=== PATIENT | female | born 1945 | race Caucasian/White ===

== ENCOUNTER 2018-11-15 21:20 | Inpatient (IN) | payer MEDICARE ==
[~2018-11-15] VITALS: Ht 160 cm; Wt 93.2 kg
--- OUTSIDE RECORDS SUMMARY | ~2018-11-15 | XMS | Encounter Summary ---
Demographics + + + | Address | [address] | | | [place] [address] | + + + | Home Phone | | + + + | Preferred Language | Unknown | + + + | Marital Status | | + + + | Orthodox Affiliation | 1027 | + + + | Race | Unknown | + + + | Ethnic Group | Unknown | + + + Author + + + | Author | [facility] [employer] | + + + | Organization | [facility] [facility] | + + + | Address | Unknown | + + + | Phone | Unavailable | + + + Support + + + + + | Name | Relationship | Address | Phone | + + + + + | Lbiby Soriano | ECON | [address] | | | | | [place], [place] | | | | | [address] | | + + + + + Care Team Providers + +------+ + | [facility] Name | Role | Phone | + +------+ + | Rajiv Wise MD | PCP | | + +------+ + Reason for Visit +--------+ + | Reason | Comments | +--------+ + | [facility] | [facility] Report and PFT 08/08/2018 | +--------+ + Encounter Details +--------+ + + + + | Date | Type | Department | Care Team | Description | +--------+ + + + + | 10/13/ | Documentati | [facility] | Pe[place], Cheryl Castillo, MA | Other ([place] | | 2019 | on Only | [facility] [place] | | Sleep Report and PFT | | | | [address] [facility] [address] | | 08/08/2018) | | | | [address] | | | | | | [place] [address] | | | | | | [phone] | | | +--------+ + + + + Social History + +-------+ +--------+------+ [...] on file | | + + + as of this encounter Plan of Treatment +--------+ + + + + | Date | Type | Specialty | Care Team | Description | +--------+ + + + + | 11/23/ | Office | Cardiology | Barbara Wolf | | | 2019 | Visit | | [address] | | | | | | [address] | | | | | | [place] [address] | | | | | | [phone] | | | | | | | | +--------+ + + + + | 11/30/ | Initial | Nephrology | Pavel Veras MD | | | 2019 | consult | | [address] | | | | | | [address] [place] | | | | | | [phone] | | | | | | | | +--------+ + + + + | 01/11/ | Office | Cardiology | Sher Max, | | | 2019 | Visit | | [address] | | | | | | [place], | | | | | | [place] [address] | | | | | | [phone] | | | | | | | | +--------+ + + + + as of this encounter Visit Diagnoses Not on filein this encounter"
--- OUTSIDE RECORDS SUMMARY | ~2018-11-15 | XMS | Encounter Summary ---
Demographics + + + | Address | [address] | | | [place] [address] | + + + | Home Phone | | + + + | Preferred Language | Unknown | + + + | Marital Status | | + + + | Protestant Affiliation | 1027 | + + + | Race | Unknown | + + + | Ethnic Group | Unknown | + + + Author + + + | Author | [facility] | + + + | Organization | [facility] | + + + | Address | Unknown | + + + | Phone | Unavailable | + + + Support + + + + + | Name | Relationship | Address | Phone | + + + + + | Libby Soriano | ECON | [address] | | | | | [place], [place] | | | | | [address] | | + + + + + Care Team Providers + +------+ + | Care Human Resources Office Assistant Name | Role | Phone | + +------+ + | Rajiv Khan MD | PCP | | + +------+ + Reason for Referral Consultation (Routine) + + + + + + + | Status | Reason | Specialty | Diagnoses / | Referred By | Referred To | | | | | Procedures | Contact | Contact | + + + + + + + | Authorized | Specialty | Nephrology | Diagnoses | Maryann, | Pavel Veras | | | Services | | Essential | Sydney Michael MD [address] | | | Required | | hypertension | [address] | [address] | | | | | Type [address] | [address] | [address] | | | | | diabetes | [address] | [place], [place] | | | | | mellitus | [place], [place] | [address] Phone: | | | | | with stage 3 | [address] | [phone] | | | | | chronic | Phone: | Fax: | | | | | kidney | [phone] | [phone] | | | | | disease, | Fax: | | | | | | without | [phone] | | | | | | long-term | | | | | | | current use | | | | | | | of insulin | | | | | | | (HCC) Stage | | | | | | | 3 chronic | | | | | | | kidney | | | | | | | disease | | | | | | | (HCC) | | | + + + + + + + Reason for Visit + + + | Reason | Comments | + + + | Follow-up | 4 month | + + + Encounter Details +--------+---------+ + + + | Date | Type | Department | Care Team | Description | +--------+---------+ + + + | 10/08/ | Office | [facility] | Barbara Wolf | S/p TAVR | | 2019 | Visit | Cardiology [facility] | [address] | (transcatheter | | | | [address] | [address] F | aortic valve | | | | [address] | [place] [address] | replacement), | | | | [place] [address] | [phone] | bioprosthetic | | | | [phone] | | (Primary Dx); Aortic | | | | | | stenosis, severe; | | | | | | Paroxysmal atrial | | | | | | fibrillation (HCC); | | | | | | New onset left | | | | | | bundle branch block | | | | | | (LBBB); Moderate to | | | | | | severe pulmonary | | | | | | hypertension (HCC); | | | | | | Mild mitral | | | | | | stenosis; Essential | | | | | | hypertension; Type 2 | | | | | | diabetes mellitus | | | | | | with stage 3 chronic | | | | | | kidney disease, | | | | | | without long-term | | | | | | current use of | | | | | | insulin (HCC); Stage | | | | | | 3 chronic kidney | | | | | | disease (HCC) | +--------+---------+ + + + Social History + +-------+ [...] + + + as of this encounter Last Filed Vital Signs + + + + | Vital Sign | Reading | Time Taken | + + + + | Blood Pressure | 122/70 | 10/08/2018 10:15 AM PDT | + + + + | Pulse | 95 | 10/08/2018 10:15 AM PDT | + + + + | Temperature | - | - | + + + + | Respiratory Rate | - | - | + + + + | Oxygen Saturation | 100% | 10/08/2018 10:15 AM PDT | + + + + | Inhaled Oxygen | - | - | | Concentration | | | + + + + | Weight | 93 kg (205 lb) | 10/08/2018 10:15 AM PDT | + + + + | Height | 157.5 cm (5' 2") | 10/08/2018 10:15 AM PDT | + + + + | Body Mass Index | 37.49 | 10/08/2018 10:15 AM PDT | + + + + in this encounter Instructions Patient Instructions - Barbara WolfDANTE - 10/08/2018 10:00 AM PDTI am going to de crease eliquis to 2.5 mg twice daily for decreased kidney function I will refer you to Dr. Veras to follow up on your decline in kidney function I have decreased your torsemide to 10 mg twice a day and also will have you take potassium 10 Meq every other day I have ordered you fasting labs to be done at [facility] in 2 weeks I have ordered your Cardizem 120 mg to take once a day in this encounter Progress Notes Maryann Barbara QuirozDANTE - 10/08/2018 10:00 AM PDTFormatting of this note may be differen t from the original. Date of visit: 10/08/2018 Primary Care Physician: WILFRED KHAN CHIEF COMPLAINT: Chief Complaint Patient presents with Follow-up 4 month HISTORY OF PRESENT ILLNESS: Ms.Emilee Soriano is a 73 year old woman who is here today for 4 months follow-up. 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 Today, I reviewed all previous documentation available to me in electronic medical [address] and from external sources She has a history of aortic stenosis with placement of TAVR at [facility] in [place] 04/06/2018, and still followed by [facility], paroxysmal atrial fibrillation, hypertension, severe pulmonary arterial hypertension, mild mitral Stenosis , new onset left bundle branch block, moderate COPD, type II Diabetes and CKD stage III. When last seen by Dr. Max, he noted her most recent echo still showed severe pulmonary hy pertension, she was on fluid and sodium restrictions. She denied dyspnea and edema, and he made no medication changes, and did not restart her beta herman due to new LBBB after TAVR . Her current and previous testing and procedures are detailed below . She reports today that she has noticed for palpitations, and increased heart rates, and h er PCP had also noticed that her heart rate had been more elevated. She noted with exertion that her heart rate be as high as the 130, and this has made her feel more tired and short of breath. She denies any dizziness or syncope, and also denies any signs or symptoms of stroke or transient ischemic attack. She reports she has remained euvolemic, and compliant with sodiu m and fluid restriction, but she and her PCP has concerns about her decline in renal functio n. She reports that she has now established care with sleep specialist, Dr. Quintero in [facility], and is now wearing her CPAP consistently for the past month, and finds it much easier a nd more comfortable to use, and is committed to using it on a nightly basis reports she was tested and no longer requires oxygen with her CPAP Brought occasions to the clinic today, but I reviewed her medication list with her person zane. She reports she sometimes forgets to take a second dose of medications in the evening REVIEW OF SYSTEMS: Negative except for pertinent items noted in HPI. Constitutional: Morbid obesity, and lost 34 pounds in April. Denies fatigue or unexplain ed weight loss. Appetite is good. Denies night sweats fevers or chills HENT: Mild hearing loss Denies nosebleeds. Denies hearing problems. Denies dysphagia Eyes: Early cataracts Denies visual disturbance or double vision. Respiratory/Sleep:: Mild to moderate COPD SINGH.Denies cough Denies hemoptysis or excessive sputum production. Obstructive sleep apnea, on CPAP no longer requires oxygen. Denies orth opnea PND, history of moderate COPD Cardiovascular:reports fast heart rates and palpitations Denies chest pain and leg swellin g. Denies history of rheumatic fever. Denies claudication . Gastrointestinal: Denies history of gastroesophageal reflux disease . Denies nausea, vomi ting, abdominal pain and blood in stool. Genitourinary: Age 2 chronic kidney disease, recent decline in GFR with creatinine consiste ntly >2 Denies hematuria. Musculoskeletal: Occasional low back pain and stool on, denies myalgias and arthralgias Skin: Denies color change. Denies rash or lesions Neurological: Denies history of stroke/Transient ischemic attack.Denies history of seizures . Denies dizziness, syncope and numbness. Hematological/Oncology . Bruises easily. Denies bleeding. Hx anemia and previous blood tra nsfusions. Denies history of cancer Endocrine: Type II diabetes well controlled oral agents. Denies thyroid disease. Denies e xcessive thirst or hunger. Psychiatric/Behavioral: denies any history of depression or anxiety or other psychiatric il lness. Vaccines: Not Current on flu vaccine. Not Current on pneumonia vaccine. Habits/Social : Denies history of smoking, exposed to 2nd Hand smoke Denies EtOH use. Dri nks servings 2 diet pepsi daily. . Denies recreational or illicit drug use. Exercises w ith and tolerates. Lives in [place]. 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 Outpatient Medications Prior to Visit Medication Sig Dispense Refill ascorbic acid (VITAMIN C) 500 MG tablet Take 500 mg by mouth daily. aspirin 81 MG tablet Take 81 mg by mouth daily. Cholecalciferol 1000 units capsule Take 1,000 Units by mouth daily. cyanocobalamin (VITAMIN B-12) 500 MCG tablet Take 500 mcg by mouth daily. ferrous sulfate, 65 FE, 324 (65 Fe) MG EC tablet Take 65 mg of iron by mouth 2 (two) ti mes daily with meals. losartan (COZAAR) 100 MG tablet Take 100 mg by mouth daily. metFORMIN (GLUCOPHAGE) 500 MG tablet Take 500 mg by mouth 2 (two) times daily. ranitidine (ZANTAC) 300 MG tablet Take 300 mg by mouth nightly. ELIQUIS 5 MG tablet TAKE ONE TABLET BY MOUTH TWICE DAILY 180 tablet 3 potassium chloride SA (K-DUR,KLOR-CON) 20 MEQ tablet Take 1 tablet by mouth daily. 90 t ablet 3 torsemide (DEMADEX) 20 MG tablet Take 1 tablet by mouth 2 (two) times daily. 180 tablet 3 diphenhydrAMINE (BENADRYL) 25 mg capsule Take 25 mg by mouth every 6 (six) hours as nee ded for Itching. loratadine (CLARITIN) 10 MG tablet Take 10 mg by mouth daily. potassium chloride 0.4 MEQ/ML Inject 20 mEq into the vein once. No facility-administered medications prior to visit. PHYSICAL EXAM: Wt Readings from Last 3 Encounters: 10/08/18 93 kg (205 lb) 04/21/18 93.5 kg (206 lb 1.6 oz) 04/16/18 103 kg (227 lb) Temp Readings from Last 3 Encounters: 10/16/17 97.3 F (36.3 C) (Temporal) 09/30/17 97.8 F (36.6 C) BP Readings from Last 3 Encounters: 10/08/18 122/70 04/21/18 124/64 10/27/17 142/72 Pulse Readings from Last 3 Encounters: 10/08/18 95 04/21/18 85 10/27/17 70 GENERAL: Well developed, well nourished, in no distress. Appears approximately stated age . HEENT: Normocephalic, atraumatic. EYES: PERRL, EOM normal. MOUTH: Oral mucosae moist, dentition adequate, no lesions noted NECK: No JVD, lymphadenopathy, thyromegaly, bruits. Carotid pulses are 2+ bilaterally LUNGS/CHEST: Clear bilaterally, with no rales, rhonchi or wheezing noted, respirations unl abored HEART: Nondisplaced PMI, irregularly irregular rhythm with fast variable rate S1, S2 norm al. No murmurs, rubs or gallops noted. ABDOMEN: Soft, nontender, no organomegaly, masses or bruits. Bowel sounds are normal in a ll 4 quadrants. The abdominal aortic pulsation is not palpable. EXTREMITIES: No edema. Radial pulses 2+ bilaterally. Femoral pulses are 2+ bilaterally wi thout bruits. DP and PT pulses are 2+ bilaterally. No clubbing. SKIN: Warm and dry, capillary refill is normal, no lesions. NEUROLOGIC: Awake, alert and oriented x 3. No focal motor or sensory deficits. PSYCHIATRIC: Appropriate, affect appears normal DATA: Blood tests: Lab Results Component Value Date WBC 6.60 09/30/2017 RBC 3.84 09/30/2017 HGB 10.8 (L) 09/30/2017 HCT 33.2 (L) 09/30/2017 PLT 212 09/30/2017 Lab Results Component Value Date NA 139 09/30/2017 K 4.0 09/30/2017 CL 99 09/30/2017 CO2 29 09/30/2017 ANIONGAP 15 09/30/2017 GLUF 99 09/30/2017 BUN 27 (H) 09/30/2017 CREATININE 1.2 (H) 09/30/2017 BCR 22 09/30/2017 CA 9.4 09/30/2017 EGFR 47 (L) 09/30/2017 Lab Results Component Value Date GLUF 99 09/30/2017 No results found for: BNP, CKTOTAL, TSH, CRP No results found for: METF, NMETFX, TFNMFX, MYGXVEC75NHD, JARWCH13HPE, TOTEPI CARDIAC PROCEDURES/IMAGING TAVR (04/06/18):( [facility], [place], Dr. Esau Gregory ) 23 mm Leon Malathi S3, complicat ed by CHF and a new LBBB Cardiac Cath (09/30/17): RA-14, PA-75/30, PCW-25-28, CO 7.6, no coronary artery disease, un able to cross the aortic valve VASCULAR TESTING AND PROCEDURES Last Carotid ultrasound: 03/05/2018: Right: Minimally abnormal right internal carotid arter y study with 1-15% diameter stenosis. The right vertebral artery is patent and antegrade.Lef t: Minimally abnormal left internal carotid artery study with 1-15% diameter stenosis. The l eft vertebral artery is patent and antegrade. Carotid U/S (11/22/09): Normal plaquing at the left internal carotid artery bulb, otherwise neck vessels were widely patent CTA Chest/Abd/Pelvis: 01/19/2018: IMPRESSION- Aortic valve disease, Mild cardiomegaly. 3.Enlarged central pulmonary arteries indicating some degree of pulmonaryhypertension. 4.Trace pericardial effusion. 5Mosaic attenuation in the lungs, which could be on the basi s of some degree of small airways disease or chronic pulmonary hypertension. 6.Probable pas sive congestive changes in the liver. CARDIOVASCULAR FINDINGS: moderate degree of calcificat ion of all 3 aortic valve leaflets with limited motion of the leaflets.There is a focus of chunky calcified plaque along the posterior aspect of the annulus that projects into the lumen.There is no porcelain ascending aorta.There is a mild degree of scattered kathy nary artery calcified plaque.The heart size is somewhat enlarged.The central pulmona ry arteries are enlarged.The main pulmonary artery measures 3.9 cm. The aorta is normal caliber throughout with no focal stenosis or dissection. The left common iliac artery is mildly tortuous.There is minimal atherosclerotic diseas e in the iliofemoral vessels with no stenoses. NON-CARDIOVASCULAR FINDINGS:There are no enl arged hilar or mediastinal lymph nodes.There is a trace pericardial effusion.There i s no pleural effusion.There is a small benign calcified granuloma at the right lung apex .There is mild mosaic attenuation in the lungs.The gallbladder is absent.The liver h as a somewhat heterogeneous appearance,possibly due to passive congestive changes.The sp rosalie, adrenals, and kidneys are unremarkable given the arterial phase of enhancement.The pancreas is somewhat atrop hic.There is no mesenteric or retroperitoneal adenopathy.There is no free fluid in the p dank.There are no adnexal masses.The visualized bowel is grossly unremarkable.T here is no obvious pelvic or inguinal adenopathy. Degenerative changes are present in the sp ine and SI joints.There are no obvious acute skeletal abnormalities. NON CARDIAC TESTING: Sleep study: 05/22/2012: AHI 56, RDI 61.3, SpO2 eryn 60 percent Titration sleep study : 08/08/2018: ( [facility]): Examination controlled with CPAP 14 cm with nasa l and replacement chinstrap, one month follow-up PFT: 07/2017:mild to moderate COPD (FEV1 77%, DLCO 59%). DATA: Spirometry FVC 1.8 (70 perce nt FEV1 1.54 (77 percent) ratio 86 lung volumes: FVC 1.88 (73 percent) RVD 3.5 (162 percent) TLC 5.39 113 percent) RVD/TLC 65 percent diffusion: DLCO 12.8 559 percent, note no hemoglob in correction ECHO Echo (post-TAVR 04/07/18): EF 64%, dilated RV with mild RV systolic dysfunction, 11 mmHg gra dient across the TAVR, severe pulmonary hypertension, RVSP 88 mmHg Echo (06/24/17): EF 60-65%, moderate right ventricular enlargement with normal function. S evere , ALVARO 0.8 cm, peak/mean gradient 54.3/29.9 mmHg, peak velocity 3.7 m/s. Mild MS pe ak/mean gradients 12.4/4 mmHg, MVA not measured, mild MR, TR, PI, severe pulmonary hypertens ion, RVSP 68.3-73.3 mmHg, moderate bi-AE Echo (11/22/09): EF 60-65%, normal RV size and function. Mild LAE, mild MR, trace TR, RVSP 28-33 mm hg EKG/EVENT MONITOR 4 Week Event Monitor (07/10/17): Sinus rhythm, ave HR 70, range 30-103 bpm, a single 14 min run of Paroxysmal AFib was noted (burden 0.14%), 172 brief runs of PAT, 22 second run of WC T with irregular R-R intervals, possibly AFib with aberrant conduction EK04/21/2018: Sinus rhythm, first-degree AV block, left bundle branch block, rate 84 bpm, CT 234 ms, QRS 142 ms, QTC 463 ms, low voltage QRS to limb leads, V5, V6 Gonzalez personally r eviewed by me EK10/08/2018:Atrial fibrillation with left bundle branch block, rate 95 bpm, QRS 138 ms, QTC 464 ms, ongoing low voltage QRS to limb leads, V1, V5, V6 , tracing personally reviewed by me and atrial fib since last seen LABS Lipid panel (02/17/17): TC-197, LDL-103, HDL-78, TG-81 Labs: 08/04/2018: CMP: Sodium 138, potassium 4.3, chloride 98, glucose 103, BUN 53, creatini ne 2.606, GFR 24, corrected calcium 9.8, albumin 4.3, total bilirubin 0.6, AST 17, ALT 13, a lk phos 366. Lipids: Cholesterol 205, triglycerides 82, LDL 129, HDL 60, non-HDL cholestero l 145. Hemoglobin A1c 5.7 (117). CBC: WBC 4.9, RBC 3.4, hemoglobin 10.1, hematocrit 31, pl atelets 200 Labs: 08/26/2018: BMP: Sodium 131, potassium 5.1, chloride 94, glucose 107, BUN 57, creatini ne 2.19, GFR 22 ASSESSMENT & PLAN: She was here for 4 month follow-up with concerns about Russo in renal function, and incre asing an irregular heart rate with palpitations. She has problems as detailed below. Overall she appears euvolemic, but her creatinine has gone from by 1.1- to 2.12-2.5 in the last few months. She now has atrial fib with RVR, as heart rate on EKG today was 95, but anywhere from 10 0-130 with auscultation, and she reports her heart rate increases quickly with exertion, joseph ntaining good blood pressure in 120-130 systolic range. I discussed these problems with her today, and told her I would like to decrease her Christelle gianna to 2.5 mg twice daily for the decline in her renal function, and have decreased her tor semide to 10 mg bid, and decreased her potassium to 10 mEq every other day as previous potas sium 5.1. I have also added Cardizem 120 mg to take once a day to help better control her heart rat e. Dr. Max had not wanted to start her on a beta herman due to her new left bundle after TAVR and needs better rate control. I reviewed on some symptoms of heart block, and told he r to stop the medication if she suddenly had a decline in her heart rate under 50, and that my target was 60-80 bpm, and to seek immediate follow-up in the emergency room if she had an y concerns for heart block. It also referred her to neurologist, Dr. Veras for ongoing monitoring evaluation of her r enal function, but in the meantime will make changes to help improve her renal function, and ordered a repeat BMP to be performed in 2 weeks to evaluate her potassium and renal functio n I made no other changes to cardiac medications today 0.5 mg twice daily, and decreasing tor semide to 10 mg BID, and adding Cardizem LA 120 mg daily, and she should continue her heart and 100 mg daily for heart function and hypertension,and aspirin 81 mg daily with TAVR. Enlarged pulmonary arteries on her previous CT scan, with severe pulmonary hypertension, and may actually have a primary pulmonary artery hypertension. She had not been compliant w ith her CPAP previously, but now is back wearing CPAP lately, which may help her pulmonary h ypertension. If her pulmonary hypertension improves with CPAP treatment that would be optimal, but if persists, she may benefit from evaluation and treatment of primary PAH in the future. I will follow-up with her in 3 weeks, and have asked that she bring all of her medicatio ns to the clinic in future 1. S/p TAVR (transcatheter aortic valve replacement), bioprosthetic 2. Aortic stenosis, severe 3. Paroxysmal atrial fibrillation (HCC) 4. New onset left bundle branch block (LBBB) 5. Moderate to severe pulmonary hypertension (HCC) 6. Mild mitral stenosis 7. Essential hypertension 8. Type 2 diabetes mellitus with stage 3 chronic kidney disease, without long-term current use of insulin ([facility]) 9. Stage 3 chronic kidney disease (HCC) 10. Obstructive sleep apnea syndrome 11. COPD, moderate ([facility]) 12. Encounter for monitoring diuretic therapy Orders Placed This Encounter Procedures Basic metabolic panel Ambulatory referral to Nephrology Electrocardiogram, 12-lead The following portions of the patient's history were personally reviewed by me and updated as appropriate: EKG tracings, other specialty provider and PCP notes,any Hospital admission and discharge summaries, any ER records , current and previous cardiac testing and procedure reports and d bennie, medication bottles NOT brought to visit today Allergies, current medications.labs Family history, past medical history, past social history, past surgical history. Problem list. DANTE [facility] 10/08/2018in this encounter Plan of Treatment +--------+ + + + + | Date | Type | Specialty | Care Team | Description | +--------+ + + + + | 11/23/ | Office | Cardiology | Barbara Wolf | | | 2018 | Visit | | DANTE [address] | | | | | | [address] | | | | | | [place] [address] | | | | | | [phone] | | | | | | | | +--------+ + + + + | 11/30/ | Initial | Nephrology | Pavel Veras MD | | | 2019 | consult | | [address] | | | | | | [address] [facility] [facility] | | | | | | [address] | | | | | | | | +--------+ + + + + | 01/11/ | Office | Cardiology | Sher Max, | | | 2019 | Visit | | MD [address] | | | | | | [place], | | | | | | [place] [address] | | | | | | [phone] | | | | | | | | +--------+ + + + + + +--------+ + + | Name | Priori | Associated Diagnoses | Order Schedule | | | ty | | | + +--------+ + + | Basic metabolic panel | Routin | Type 2 diabetes | Expected: | | | e | mellitus with stage | 10/22/2018, Expires: | | | | 3 chronic kidney | 04/10/2020 | | | | disease, without | | | | | long-term current | | | | | use of insulin ([facility]) | | | | | Stage 3 chronic | | | | | kidney disease | | | | | Encounter for | | | | | monitoring diuretic | | | | | therapy | | + +--------+ + + + +--------+ + + | Name | Priori | Associated Diagnoses | Order Schedule | | | ty | | | + +--------+ + + | Ambulatory referral to Nephrology | Routin | Essential | Ordered: 10/08/2018 | | | e | hypertension Type 2 | | | | | diabetes mellitus | | | | | with stage 3 chronic | | | | | kidney disease, | | | | | without long-term | | | | | current use of | | | | | insulin (HCC) Stage | | | | | 3 chronic kidney | | | | | disease | | + +--------+ + + as of this encounter Procedures + +--------+ + + + | Procedure Name | Priori | Date/Time | Associated Diagnosis | Comments | | | ty | | | | + +--------+ + + + | EKG STANDARD 12 LEAD | Routin | 10/08/2018 | S/p TAVR | Results for this | | | e | 10:22 AM | (transcatheter | procedure are in the | | | | PDT | aortic valve | results section. | | | | | replacement), | | | | | | bioprosthetic | | | | | | Aortic stenosis, | | | | | | severe Paroxysmal | | | | | | atrial fibrillation | | | | | | ([facility]) New onset | | | | | | left bundle branch | | | | | | block (LBBB) | | | | | | Moderate to severe | | | | | | pulmonary | | | | | | hypertension (HCC) | | | | | | Mild mitral stenosis | | | | | | Essential | | | | | | hypertension Type 2 | | | | | | diabetes mellitus | | | | | | with stage 3 chronic | | | | | | kidney disease, | | | | | | without long-term | | | | | | current use of | | | | | | insulin ([facility]) Stage | | | | | | 3 chronic kidney | | | | | | disease (HCC) | | | | | | Obstructive sleep | | | | | | apnea syndrome | | | | | | COPD, moderate (HCC) | | + +--------+ + + + in this encounter Results EKG STANDARD 12 LEAD (10/08/2018 10:22 AM) + + + + + | Component | Value | Ref Range | Performed At | + + + + + | Ventricular Rate | 95 | BPM | [facility] | + + + + + | Atrial Rate | 59 | BPM | [facility] | + + + + + | QRS Duration | 138 | ms | [facility] | + + + + + | Q-T Interval | 370 | ms | [facility] | + + + + + | QTC Calculation | 464 | ms | [facility] | | (Bezjacquelin) | | | | + + + + + | Calculated R Hague | 117 | degrees | [facility] | + + + + + | Calculated T Hague | 32 | degrees | [facility] | + + + + + | Diagnosis | Please refer to | | [facility] | | | Providers office visit | | | | | note for Providers | | | | | Interpretation.Confirmed | | | | | by [facility] Read Only, | | | | | [facility] Vincent ([id number]), | | | | | photograph editor Edmundo Mace | | | | | ([id number]) on 10/08/2018 | | | | | 4:25:33 PM | | | + + + + + + + + + + | Performing | Address | City/State/Zipcode | Phone Number | | Organization | | | | + + + + + | [facility] | [address] | [place] [address] | | + + + + + in this encounter Visit Diagnoses + + | Diagnosis | + + | S/p TAVR (transcatheter aortic valve replacement), bioprosthetic - Primary | + + | Aortic stenosis, severe | + + | Aortic valve disorders | + + | Paroxysmal atrial fibrillation (HCC) | + + | Atrial fibrillation | + + | New onset left bundle branch block (LBBB) | + + | Moderate to severe pulmonary hypertension (HCC) | + + | Other chronic pulmonary heart diseases | + + | Mild mitral stenosis | + + | Mitral stenosis | + + | Essential hypertension | + + | Unspecified essential hypertension | + + | Type 2 diabetes mellitus with stage 3 chronic kidney disease, without long-term | | current use of insulin (HCC) | + + | Stage 3 chronic kidney disease (HCC) | + + | Obstructive sleep apnea syndrome | + + | Obstructive sleep apnea (adult) (pediatric) | + + | COPD, moderate (HCC) | + + | Chronic airway obstruction, not elsewhere classified | + + | Encounter for monitoring diuretic therapy | + + | Encounter for therapeutic drug monitoring | + +
--- OUTSIDE RECORDS SUMMARY | ~2018-11-15 | XMS | Encounter Summary ---
Demographics + + + | Address | [address] | | | [place] [address] | + + + | Home Phone | | + + + | Preferred Language | Unknown | + + + | Marital Status | | + + + | Sabianism Affiliation | [id number] | + + + | Race | Unknown | + + + | Ethnic Group | Unknown | + + + Author + + + | Author | [facility] | + + + | Organization | [facility] | + + + | Address | Unknown | + + + | Phone | Unavailable | + + + Support + + + + + | Name | Relationship | Address | Phone | + + + + + | Libby Soriano | ECON | [address] | | | | | [place], [place] | | | | | [address] | | + + + + + Care Team Providers + +------+ + | Care Entry Writer Name | Role | Phone | + +------+ + | Rajiv Khan MD | PCP | | + +------+ + Reason for Visit + + + | Reason | Comments | + + + | Follow-up | 3 weeks | + + + Encounter Details +--------+---------+ + + + | Date | Type | Department | Care Team | Description | +--------+---------+ + + + | 10/26/ | Office | [facility] | Barbara Wolf | Paroxysmal atrial | | 2019 | Visit | Cardiology [place] | [address] | fibrillation (HCC) | | | | [address] | Vincent Velásquez | (Primary Dx); S/p | | | | [address] | [place] [address] | TAVR (transcatheter | | | | [place] [address] | [phone] | aortic valve | | | | [phone] | | replacement), | | | | | | bioprosthetic; | | | | | | Aortic stenosis, | | | | | | severe; New onset | | | | | | left bundle branch | | | | | | block (LBBB); Mild | | | | | | mitral stenosis; | | | | | | Essential | | | | | | hypertension; | | | | | | Encounter for | | | | | | monitoring diuretic | | | | | | therapy; Moderate to | | | | | | severe pulmonary | | | | | | hypertension (HCC); | | | | | | COPD, moderate | | | | | | (HCC) | +--------+---------+ + + + Social [...] + + + | Blood Pressure | 110/60 | 10/26/2018 10:47 AM PDT | + + + + | Pulse | 80 | 10/26/2018 10:47 AM PDT | + + + + | Temperature | - | - | + + + + | Respiratory Rate | - | - | + + + + | Oxygen Saturation | 97% | 10/26/2018 10:47 AM PDT | + + + + | Inhaled Oxygen | - | - | | Concentration | | | + + + + | Weight | 98.9 kg (218 lb) | 10/26/2018 10:47 AM PDT | + + + + | Height | 157.5 cm (5' 2") | 10/26/2018 10:47 AM PDT | + + + + | Body Mass Index | 39.87 | 10/26/2018 10:47 AM PDT | + + + + in this encounter Instructions Patient Instructions - Barbara Wolf ARNP - 10/26/2018 10:30 AM PDTI have decreased your torsemide to 10 mg Once a day, stop potassium Take hydralazine 10 mg Three times a day I have ordered you fasting labs to be done at [facility] in 3 weeks Take Cardizem 120 mg to take once a day in the morning I have decreased your losartan to 50 mg and take in the evening Ge non fasting labs done in 3 weeks See me back in one month, and will see Dr. Max in January [address] [place] [address] Khan and discuss with him that need to have metformin stopped as kidney funct ion very low Reading Food Labels Look for the Nutrition Facts label on packaged foods. Reading labels is a big step toward e ating healthier. The tips below help you know what to look for. 1. Serving size.Read this closely because the package, jar, or can may contain more than 1 serving. This is how to measure 1 serving of the food in the package. If you eat more than 1 serving, you get more of everything on the label including fat, cholesterol, and familia janene. 2. Total fat.This tells you how many grams (g) of fat are in 1 serving. Fat is high in ca lories. A healthy goal is to have less than 25% of your daily calories come from fat. 3. Saturated fat.This tells you how much saturated fat is in 1 serving. Saturated fat david ses your cholesterol the most. Look for foods that have little or no saturated fat. 4. Trans fat.This tells you how muchtrans fatis in 1 serving. Even a small amount of trans fat can harm your health. Choose foods that have no trans fat. 5. Cholesterol.This tells you how much cholesterol is in 1 serving. For many years, it wa s recommended to eat less than 300 milligrams (mg) of cholesterol a day. New guidelines have removed this limitation. That's because cholesterol has been shown to not raise blood fili sterol levels as much as once thought. But many foods high in cholesterol are also high in s aturated fat. So it is recommended to limit saturated fat in your diet. 6. Calories from fat.This number tells you how many calories from fat are in 1 serving (t here are 9 calories per gram of fat). Look for foods with fewcalories from fat. 7. % Daily value.The higher the number, the more 1 serving has of that nutrient. Look for foods that have low numbers for total fat, saturated fat, cholesterol, and sodium. Foods th at are higher in fiber, vitamins, and minerals (iron and calcium) are good choices. 8. Sodium.This tells you how much salt is in 1 serving. Choose foods with low numbers for sodium. 9. Dietary fiber.This number tells you how much fiber is in 1 serving. Foods that are hig h in fiber can help you feel full. They can also be good for your heart and digestion. The r ecommended daily amount of fiber is 25 grams for women and 38 grams for men.After age 50, your daily fiber needs drop to 21 grams for women and 30 grams for men. Date Last Reviewed: 12/12/201619990694-4837 [employer]. [address] [place] [address]. All righ ts reserved. This information is not intended as a substitute for professional medical care. Always follow your healthcare professional's instructions. Low-Salt Diet This diet removes foods that are high in salt. It also limits the amount of salt you use wh en cooking. It is most often used for people with high blood pressure, edema (fluid retentio n), and kidney, liver, or heart disease. Table salt contains the mineral sodium. Your body needs sodium to work normally. But too mu ch sodium can make your health problems worse. Your healthcare provider is recommending a lo w-salt (also called low-sodium) diet for you. Your total daily allowance of salt is1,500 t o 2,300milligrams (mg). It is less than 1 teaspoon of table salt. This means you can have only [id number] to 700mg of sodium at each meal.People with certain health problems shou ld limit salt intake to the lower end of the recommended range. When you cook, don t add much salt. If you can cook without using salt, even better. Don t add salt to your food at the table. When shopping, read food labels. Salt is often called sodium on the label. Choose foods alva t are salt-free, low salt, or very low salt. Note that foods with reduced salt may notlowe r your salt intake enough. Beans, potatoes, and pasta Ok: Dry beans, split peas, lentils, potatoes, rice, macaroni, pasta, spaghetti without adde d salt Avoid: Potato chips, tortilla chips, and similar products Breads and cereals Ok: Low-sodium breads, rolls, cereals, and cakes; low-salt crackers, matzo crackers Avoid: Salted crackers, pretzels, popcorn, Icelandic toast, pancakes, muffins Dairy Ok: Milk, chocolate milk, hot chocolate mix, low-salt cheeses, and yogurt Avoid: Processed cheese and cheese spreads; Roquefort, Camembert, and cottage cheese; butte rmilk, instant breakfast drink Desserts Ok: Ice cream, frozen yogurt, juice bars, gelatin, cookies and pies, sugar, honey, jelly, h qian candy Avoid: Most pies, cakes and cookies prepared or processed with salt; instant pudding Drinks Ok: Tea, coffee, fizzy (carbonated) drinks, juices Avoid: Flavored coffees, electrolyte replacement drinks, sports drinks Meats Ok: All fresh meat, fish, poultry, low-salt tuna, eggs, egg substitute Avoid: Smoked, pickled, brine-cured, or salted meats and fish. Thisincludes ornelas, chippe d beef, corned beef, hot dogs, deli meats, ham, kosher meats, salt pork, sausage, canned diego a, salted codfish, smokedsalmon, martinez, sardines, or anchovies. Seasonings and spices Ok: Most seasonings are okay. Good substitutes for salt include: fresh herb blends, hot vicki ce, lemon, garlic, taylor, vinegar, dry mustard, parsley, cilantro, horseradish, tomato paste , regular margarine, mayonnaise, unsalted butter, cream cheese, vegetable oil, cream, low-sa lt salad dressing and gravy. Avoid: Regular ketchup, relishes, pickles, soy sauce, teriyaki sauce, Worcestershire sauce, BBQ sauce, tartar sauce, meat tenderizer, chili sauce, regular gravy, regular salad dressin g, salted butter Soups Ok: Low-salt soups and broths made with allowed foods Avoid: Bouillon cubes, soups with smoked or salted meats, regular soup and broth Vegetables Ok: Most vegetables are okay; also low-salt tomato and vegetable juices Avoid: Sauerkraut and other brine-soaked vegetables; pickles and other pickled vegetables; tomato juice, olives Date Last Reviewed: 02/12/201619996622-5565 [employer]. [address] [place] [address]. All righ ts reserved. This information is not intended as a substitute for professional medical care. Always follow your healthcare professional's instructions. in this encounter Progress Notes Barbara Wolf, DANTE - 10/26/2018 10:30 AM PDTFormatting of this note may be differen t from the original. Date of visit: 10/26/2018 Primary Care Physician: WILFRED KHAN CHIEF COMPLAINT: Chief Complaint Patient presents with Follow-up 3 weeks HISTORY OF PRESENT ILLNESS: Ms.Emilee Soriano is a 73 year old woman who is here today to follow up on her re sponse to [facility], and decreasing her diuretic for increased renal failure. She is a patient of who is her for primary fashion consultant selling, and last seen by him 1 . Today, I reviewed all previous documentation available to me in electronic medical [address] and from external sources She has a history of aortic stenosis with placement of TAVR at [facility] in [place] 04/06/2018, and still followed by [facility], paroxysmal atrial fibrillation, hypertension, severe pulmonary arterial hypertension, mild mitral Stenosis , new onset left bundle branch block, moderate COPD, type II Diabetes and CKD stage III. When last seen by Dr. Max, he noted her most recent echo still showed severe pulmonary hy pertension, and she was on fluid and sodium restrictions. She denied dyspnea and edema, and he made no medication changes, and did not restart her beta herman due to new LBBB after TAVR. I saw her last October 08, 2018 with increased palpitations, and heart rate, and atrial f ib with ventricular response in the 90's on EKG, and faster on auscultation and started Card izem 120 mg daily. I also noted decreased renal function, had reduced her Eliquis to 2.5 m g twice daily, referred her to dryer and washer mechanic Dr. Veras for further evaluation of her kidney f unction, decreased her torsemide to 10 mg twice daily, and told her to take potassium 10 mEq every other day, and ordered her an updated BMP to be done in 2 weeks. Her current and previous testing and procedures are detailed below . She reports today that she has noticed that her heart rate has been better controlled, an d her home heart rate log shows predominantly in the high 60's low 70's with occasional epis odes in the 80's, and low of 59 bpm, her systolic blood pressure is predominately in the low 90's-to low 100's She brought her home blood pressure cuff to the clinic today and her home cuff was 122/77 w ith her clinic pressure being 128/70 so close correlation.. She has noted increased lower extremity edema with a decrease in her diuretic, as any diz ziness or lightheadedness or syncope. She notices mild ongoing dyspnea with exertion. Sohail es any signs or symptoms of stroke or TIA, or any ER admissions since last seen. She reports that she continues to use her CPAP nightly since established care with sl eep specialist, Dr. Quintero in [place]. She finds it much easier and more comfortable to use , and no longer requires oxygen with her CPAP. 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 She brought all of her medication bottles to the clinic today, and I reviewed them with her personally. She still sometimes forgets to take her medications in the evenings, or around meals if she does not eat. Her weight is up 13 pounds since I saw her last weighed 205 pounds, and predominantly fluid . REVIEW OF SYSTEMS: Negative except for pertinent items noted in HPI. Constitutional: Morbid obesity, and lost 34 pounds in April. Denies fatigue or unexplain ed weight loss. Appetite is good. Denies night sweats fevers or chills HENT: Mild hearing loss Denies nosebleeds. Denies hearing problems. Denies dysphagia Eyes: Early cataracts Denies visual disturbance or double vision. Respiratory/Sleep:: Mild to moderate COPD ,SINGH.Denies cough Denies hemoptysis or excessiv e sputum production. Obstructive sleep apnea, on CPAP no longer requires oxygen. Denies ort hopnea PND, history of moderate COPD Cardiovascular:reports more controlled heart rates and less palpitations on metoprolol. D enies chest pain and leg swelling. Denies history of rheumatic fever. Denies claudication . Gastrointestinal: Denies history of GERD . Denies nausea, vomiting, abdominal pain and bl ood in stool. Genitourinary: Stage 3 chronic kidney disease, recent decline in GFR with creatinine consi stently >2 Denies hematuria. Musculoskeletal: Occasional low back and joint pain , denies myalgias. Skin: Denies color change. Denies rash or lesions Neurological: Denies history of stroke/Transient ischemic attack.Denies history of seizures . Denies dizziness, syncope and numbness. Hematological/Oncology . Bruises easily. Denies bleeding. Hx anemia and previous blood tra nsfusions. Denies history of cancer Endocrine: Type II diabetes, well controlled oral agents. Denies thyroid disease. Denies excessive thirst or hunger. Psychiatric/Behavioral: denies any history of depression or anxiety or other psychiatric il lness. Vaccines: Not Current on flu vaccine. Not Current on pneumonia vaccine. Habits/Social : Denies history of smoking, exposed to 2nd Hand smoke Denies EtOH use. Dri nks servings 2 diet pepsi daily. . Denies recreational or illicit drug use. Exercises w ith walking Lives in [place]. 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 Outpatient Medications Prior to Visit Medication Sig Dispense Refill apixaban (ELIQUIS) 5 MG tablet Take 0.5 tablets by mouth 2 (two) times daily. 180 table t 3 ascorbic acid (VITAMIN C) 500 MG tablet Take 500 mg by mouth daily. aspirin 81 MG tablet Take 81 mg by mouth daily. cetirizine (ZYRTEC) 10 MG tablet Take 10 mg by mouth daily. Cholecalciferol 1000 units capsule Take 1,000 Units by mouth daily. cyanocobalamin (VITAMIN B-12) 500 MCG tablet Take 500 mcg by mouth daily. diltiazem (CARDIZEM LA) 120 MG 24 hr tablet Take 1 tablet by mouth daily. 30 tablet 11 ferrous sulfate, 65 FE, 324 (65 Fe) MG EC tablet Take 65 mg of iron by mouth 2 (two) ti mes daily with meals. losartan (COZAAR) 100 MG tablet Take 50 mg by mouth every evening. metFORMIN (GLUCOPHAGE) 500 MG tablet Take 500 mg by mouth 2 (two) times daily. ranitidine (ZANTAC) 300 MG tablet Take 300 mg by mouth nightly. potassium chloride SA (K-DUR,KLOR-CON) 20 MEQ tablet Take 0.5 tablets by mouth every ot her day. 15 tablet 3 torsemide (DEMADEX) 20 MG tablet Take 0.5 tablets by mouth 2 (two) times daily. 90 tabl et 3 No facility-administered medications prior to visit. PHYSICAL EXAM: Wt Readings from Last 3 Encounters: 10/26/18 98.9 kg (218 lb) 10/08/18 93 kg (205 lb) 04/21/18 93.5 kg (206 lb 1.6 oz) Temp Readings from Last 3 Encounters: 10/16/17 97.3 F (36.3 C) (Temporal) 09/30/17 97.8 F (36.6 C) BP Readings from Last 3 Encounters: 10/26/18 110/60 10/08/18 122/70 04/21/18 124/64 Pulse Readings from Last 3 Encounters: 10/26/18 80 10/08/18 95 04/21/18 85 GENERAL: Well developed, well nourished, in no distress. Appears approximately stated age . HEENT: Normocephalic, atraumatic. EYES: PERRL, EOM normal. MOUTH: Oral mucosae moist, dentition adequate, no lesions noted NECK: No JVD, lymphadenopathy, thyromegaly, bruits. Carotid pulses are 2+ bilaterally LUNGS/CHEST: Clear bilaterally, with no rales, rhonchi or wheezing noted, respirations unl abored HEART: Nondisplaced PMI, irregularly irregular rhythm with more controlled variable rate S1, S2 normal. No murmurs, rubs or gallops noted. ABDOMEN: [...] No results found for: METF, NMETFX, TFNMFX, [id number], [id number], TOTEPI CARDIAC PROCEDURES/IMAGING TAVR (04/06/18):( [facility], [facility], Dr. Esau Gregory ) 23 mm Leon [...] central pulmonary arteries indicating some degree of pulmonary hypertension. 4.Trace pericardial effusion. 5Mosaic attenuation in the lungs, which could be on the bas is of some degree of small airways disease or chronic pulmonary hypertension. 6.Probable pa ssive congestive changes in the liver. CARDIOVASCULAR FINDINGS: moderate degree of calcifica tion of all 3 aortic valve leaflets with limited motion of the leaflets.There is a focus of chunky calcified plaque along the posterior aspect of the annulus that projects into the lumen.There is no porcelain ascending aorta.There is a mild degree of scattered cor onary artery calcified plaque.The heart size is somewhat enlarged.The central pulmon dixon arteries are enlarged.The main pulmonary artery measures [...] left bundle branch block, rate 84 bpm, SC 234 ms, QRS 142 ms, QTC 463 ms, low voltage QRS to limb leads, V5, V6 Gonzalez personally r eviewed by me EK10/08/2018:Atrial fibrillation with left bundle branch block, rate 95 bpm, QRS 138 ms, QTC 464 ms, ongoing low voltage QRS to limb leads, V1, V5, V6 , tracing personally reviewed by me and atrial fib since last seen EK10/26/2018:( cardizem 120 mg) Sinus rhythm, first-degree AV block, left bundle branch block rate 80 bpm, SC 240 ms, QRS 146 ms, QTC 472 ms, low voltage QRS to limb leads and late ral leads. Tracing personally reviewed by me, sinus rhythm has replaced atrial fibrillation since last seen LABS Lipid panel (02/17/17): [...] 31, pl atelets 200 Labs: 08/26/2018: BMP: (Torsemide 20 mg BID) sodium 131, potassium 5.1, chloride 94, glucose 107, BUN 57, creatinine 2.19, GFR 22 Labs: 10/22/2018: BMP: (Torsemide 10 mg twice daily) sodium 130, potassium 4.5, chloride 94, glucose 89, BUN 69, creatinine 2.12, GFR 23 ASSESSMENT & PLAN: She was here for 3 week follow up on her response to Cardizem, and decreasing her diureti c for increased renal failure. She has problems as detailed below. Her EKG performed in the clinic today on Cardizem 120 mg daily shows she is back in sinus r hythm with a first-degree AV block and left bundle branch block at 80 bpm. Her heart rate at home has also been better controlled, though systolic blood pressure has been on the lower side as sometimes in the low 100's to high 90's, though 122 in the clinic today, and close c orrelation with her home cuff, and blood pressure in the clinic. Her labs performed at the beginning of October on torsemide 10 mg twice daily show her renal function is stable, but not improved with GFR of 23, and low sodium of 130, and stable potas sium of 4.5. I discussed the results of her labs and EKG with her, as well as her home heart rate and bl ood pressure, and discussed with her that I thought Cardizem was helping her rhythm, but she was more fluid overloaded with a decrease in her diuretic. I discussed with her the challenge on keeping her edema controlled without worsening her re nal failure. I decreased her torsemide to 10 mg once daily, told her to stop her potassium, and added hy dralazine 10 mg 3 times daily to help unload her heart, and also to help with peripheral alyce ma. I told her to take her Cardizem 120 mg in the morning, and decreased her losartan to 50 mg daily and told her to take it in the evening to avoid dizziness and hypotension. Her other cardiac medications, I have continued Eliquis 2.5 mg twice daily for decreased re nal function and stroke prevention,and aspirin 81 mg daily with TAVR. She is now compliant with her CPAP, which I hope will help with her severe pulmonary hyp ertension. Her previous CT scan had shown enlarged pulmonary arteries, and my concern is that she may actually have primary pulmonary artery hypertension, and if her pulmonary hypertension does not improve, I will refer her to Dr. Sandrine [facility]'s, and also with [facility] for evaluation and treatment of PAH. I also advised her to follow-up with her PCP Dr. Khan to see if he wishes to stop or decrease her metformin due to the decline in her renal function. I will see her back in 1 month, and have ordered a CMP to be performed in 3 weeks elation of her renal function, electrolytes, and liver enzymes. She will follow up with Dr. Max at our [facility] January 11, and she is going to hav e her daughter drive her to that appointment. 1. Paroxysmal atrial fibrillation (HCC) 2. S/p TAVR (transcatheter aortic valve replacement), bioprosthetic 3. Aortic stenosis, severe 4. New onset left bundle branch block (LBBB) 5. Mild mitral stenosis 6. Essential hypertension 7. Encounter for monitoring diuretic therapy 8. Moderate to severe pulmonary hypertension (HCC) 9. COPD, moderate (HCC) 10. Type 2 diabetes mellitus with stage 3 chronic kidney disease, without long-term current use of insulin (HCC) 11. Stage 3 chronic kidney disease (HCC) 12. Obstructive sleep apnea syndrome 13. Mitral valve stenosis, unspecified etiology Orders Placed This Encounter Procedures Comprehensive metabolic panel Electrocardiogram, 12-lead The following portions of the patient's history were personally reviewed by me and updated as appropriate: EKG tracings, other specialty provider and PCP notes,any Hospital admission and discharge summaries, any ER records , current and previous cardiac testing and procedure reports and d bennie, medication bottles brought to visit today Allergies, current medications.labs Family history, past medical history, past social history, past surgical history. Problem list. DANTE [facility] 10/26/2018in this encounter Plan of Treatment +--------+ + + + + | Date | Type | Specialty | Care Team | Description | +--------+ + + + + | 11/23/ | Office | Cardiology | Barbara Wolf | | | 2018 | Visit | | [address] | | | | | | [address] | | | | | | [place] [address] | | | | | | [phone] | | | | | | | | +--------+ + + + + | 11/30/ | Initial | Nephrology | Pavel Veras MD | | | 2019 | consult | | [address] | | | | | | [address] [place], [place] | | | | | | [address] | | | | | | | | +--------+ + + + + | 01/11/ | Office | Cardiology | Sher Max, | | | 2018 | Visit | | [address] | | | | | | [place], | | | | | | [place] [address] | | | | | | [phone] | | | | | | | | +--------+ + + + + + +--------+ + + | Name | Priori | Associated Diagnoses | Order Schedule | | | ty | | | + +--------+ + + | Comprehensive metabolic panel | Routin | Type 2 diabetes | Expected: | | | e | mellitus with stage | 11/09/2018, Expires: | | | | 3 chronic kidney | 10/27/2019 | | | | disease, without | | | | | long-term current | | | | | use of insulin (HCC) | | | | | Stage 3 chronic | | | | | kidney disease | | + +--------+ + + as of this encounter Procedures + +--------+ + + + | Procedure Name | Priori | Date/Time | Associated Diagnosis | Comments | | | ty | | | | + +--------+ + + + | EKG STANDARD 12 LEAD | Routin | 10/26/2018 | Essential | Results for this | | | e | 10:58 AM | hypertension Mitral | procedure are in the | | | | PDT | valve stenosis, | results section. | | | | | unspecified etiology | | + +--------+ + + + in this encounter Results EKG STANDARD 12 LEAD (10/26/2018 10:58 AM) + + + + + | Component | Value | Ref Range | Performed At | + + + + + | Ventricular Rate | 80 | BPM | [facility] | + + + + + | Atrial Rate | 72 | BPM | [facility] | + + + + + | QRS Duration | 146 | ms | [facility] | + + + + + | Q-T Interval | 410 | ms | [facility] | + + + + + | QTC Calculation | 472 | ms | [facility] | | (Bezet) | | | | + + + + + | Calculated R [place] | 117 | degrees | [facility] | + + + + + | Calculated T [place] | 33 | degrees | [facility] | + + + + + | Diagnosis | Please refer to | | [facility] | | | Providers office visit | | | | | note for Providers | | | | | Interpretation.Confirmed | | | | | by [facility] [place] Read Only, | | | | | [facility] Vincent ([id number]), | | | | | video effects editor Edmundo Mace | | | | | ([id number]) on 10/26/2018 | | | | | 11:20:45 AM | | | + + + + + + + + + + | Performing | Address | City/State/Zipcode | Phone Number | | Organization | | | | + + + + + | [facility] | [address] | [place] [address] | | + + + + + in this encounter Visit Diagnoses + + | Diagnosis | + + | Paroxysmal atrial fibrillation (HCC) - Primary | + + | Atrial fibrillation | + + | S/p TAVR (transcatheter aortic valve replacement), bioprosthetic | + + | Aortic stenosis, severe | + + | Aortic valve disorders | + + | New onset left bundle branch block (LBBB) | + + | Mitral valve stenosis, unspecified etiology | + + | Essential hypertension | + + | Unspecified essential hypertension | + + | Encounter for monitoring diuretic therapy | + + | Encounter for therapeutic drug monitoring | + + | Moderate to severe pulmonary hypertension (HCC) | + + | Other chronic pulmonary heart diseases | + + | COPD, moderate (HCC) | + + | Chronic airway obstruction, not elsewhere classified | + + | Type 2 diabetes mellitus with stage 3 chronic kidney disease, without long-term | | current use of insulin (HCC) | + + | Stage 3 chronic kidney disease (HCC) | + + | Obstructive sleep apnea syndrome | + + | Obstructive sleep apnea (adult) (pediatric) | + +
--- OUTSIDE RECORDS SUMMARY | ~2018-11-15 | XMS | Encounter Summary ---
Demographics + + + | Address | [address] | | | [place] [address] | + + + | Home Phone | | + + + | Preferred Language | Unknown | + + + | Marital Status | | + + + | Yazidi Affiliation | 1027 | + + + | Race | Unknown | + + + | Ethnic Group | Unknown | + + + Author + + + | Author | [facility] | + + + | Organization | [facility] | + + + | Address | Unknown | + + + | Phone | Unavailable | + + + Support + + + + + | Name | Relationship | Address | Phone | + + + + + | Libby Soriano | ECON | [address] | | | | | [place], [place] | | | | | [address] | | + + + + + Care Team Providers + +------+ + | Care Supervisor Extrusion Name | Role | Phone | + [...] | | Required | | hypertension | ACADEMIC SUPPORT COORDINATOR [address] | | | | | Type [address] | [address] | [address] | | | | | diabetes | Bob [address] | [place], [place] | | | | | mellitus | [place], [place] | [address] Phone: | | | | | with stage 3 | [address] | [phone] | | | | | chronic | Phone: | Fax: | | | | | kidney | [phone] | [phone] | | | | | disease, | Fax: | | | | | | without | [phone] | | | | | | long-term [...] | | | Way [address] | [place] [address] | replacement), | | | | [place] [address] | [phone] | bioprosthetic | | | | [phone] | | (Primary Dx); Aortic | | [...] you fasting labs to be done at [facility] in 2 weeks I have ordered [...] patient of who is her for primary career development specialist, and last seen by him 1 . Today, I reviewed all previous documentation available to me in electronic medical [address] and from external sources She has a history of aortic stenosis with placement of TAVR at [facility] in [place] 04/06/2018, and still followed by [place] [facility], paroxysmal atrial fibrillation, hypertension, severe [...] care with sleep specialist, Dr. Quintero in [facility], and is now wearing her CPAP [...] Exercises w ith and tolerates. Lives in [place]. 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, [...] left bundle branch block, rate 84 bpm, DC 234 ms, QRS 142 ms, QTC 463 [...] disease, without long-term current use of insulin ([facility]) 9. Stage 3 chronic kidney disease (HCC) 10. Obstructive sleep apnea syndrome 11. COPD, moderate ([facility]) 12. Encounter for monitoring diuretic therapy Orders [...] past surgical history. Problem list. DANTE Lau [facility] Cardiology 10/08/2018in this encounter Plan of Treatment +--------+ + + + + | Date | Type | Specialty | Care Team | Description | +--------+ + + + + | 11/23/ | Office | Cardiology | Barbara Wolf | | | 2018 | Visit | | [address]TE [address] | | | | | | [address] | | | | | | [place] [address] | | | | | | [phone] | | | | | | | | +--------+ + + + + | 11/30/ | Initial | Nephrology | Pavel Veras MD | | | 2019 | consult | | [address] | | | | | | [address] [facility] | | | | | | [address] | | | | | | | | +--------+ + + + + | 01/11/ | Office | Cardiology | Sher Max, | | | 2019 | Visit | | MD [address] | | | | | | [place], | | | | | | [place] [address] | | | | | | [phone] | | | | | | | [...] | | | | use of insulin ([facility]) | | | | | Stage 3 [...] fibrillation | | | | | | ([facility]) New onset | | | | | [...] | | | | | | insulin ([facility]) Stage | | | | | | [...] + + + + | Calculated R [place] | 117 | degrees | [facility] | + + + + + | Calculated T [place] | 32 | degrees | [facility] | + + + + + | Diagnosis | Please refer to | | [facility] | | | Providers office visit | | | | | note for Providers | | | | | Interpretation.Confirmed | | | | | by [facility] [place] Read Only, | | | | | [facility] Vincent ([id number]), | | | | | assistant film editor Edmundo Mace | | | | | (060) on 10/08/2018 | | | | | 4:25:33 PM | | | + + + + + + + + + + | Performing | Address | City/State/Zipcode | Phone Number | | Organization | | | | + + + + + | [facility] | [address] | [place] [address] | | + + + + + [...]
--- OUTSIDE RECORDS SUMMARY | ~2018-11-15 | XMS | Encounter Summary ---
Demographics + + + | Address | [address] | | | [place] [address] | + + + | Home Phone | | + + + | Preferred Language | Unknown | + + + | Marital Status | | + + + | Congregational Affiliation | 1027 | + + + | Race | Unknown | + + + | Ethnic Group | Unknown | + + + Author + + + | Author | [facility] | + + + | Organization | [facility] | + + + | Address | Unknown | + + + | Phone | Unavailable | + + + Support + + + + + | Name | Relationship | Address | Phone | + + + + + | Libby Soriano | ECON | [address] | | | | | [place], [place] | | | | | [address] | | + + + + + Care Team Providers + +------+ + | Care Sql Analyst Name | Role | Phone | [...] + | 10/13/ | Documentati | [facility] | Pepe, Cheryl Castillo, MA | Other ([place] | | 2019 | on Only | Cardiology [place] | | Sleep Report and PFT | | | | [address] [facility] [address] | | 08/08/2018) | | | | [address] | | | | | | [place] [address] | | | | | | [phone] | | | +--------+ + + + [...] | | | | | | [place] [address] | | | | | | [phone] | | | | | | | | +--------+ + + + + | 11/30/ | Initial | Nephrology | Pavel Veras MD | | | 2019 | consult | | [address] | | | | | | [address] [place] | | | | | | [phone] | | | | | | | | +--------+ + + + + | 01/11/ | Office | Cardiology | Sher Max, | | | 2019 | Visit | | [address] | | | | | | [place], | | | | | | [place] [address] | | | | | | [phone] | | | | | | | | +--------+ + + + + as of this encounter Visit Diagnoses Not on filein this encounter"
--- OUTSIDE RECORDS SUMMARY | ~2018-11-15 | XMS | Clinical Summary ---
Demographics + + + | Address | [address] | | | [place] [address] | + + + | Home Phone | | + + + | Preferred Language | Unknown | + + + | Marital Status | | + + + | Alevism Affiliation | 1027 | + + + | Race | Unknown | + + + | Ethnic Group | Unknown | + + + Author + + + | Author | [facility] | | | and [place] | + + + | Organization | [facility] | | | and [place] | + + + | Address | Unknown | + + + | Phone | Unavailable | + + + Support + + + + + | Name | Relationship | Address | Phone | + + + + + | Libby Soriano | ECON | [address] | | | | | [place], [place] | | | | | [address] | | + + + + + Care Team Providers + +------+ + | Care Rn Transport Name | Role | Phone | + +------+ + PP | Unavailable | + +------+ + Allergies Not on File Medications Not on file Active Problems Not on file Social History + +-------+ +--------+------+ | Tobacco [...] recent travel history available. | + + Plan of Treatment + + + + + | Health [...] Vaccine: Influenza | | | | | (Season Ended) | 9 | | | + + + + + Procedures + +--------+ + + + | Procedure Name | Priori | Date/Time | Associated Diagnosis | Comments | | | ty | | | | + +--------+ + + + | CV DIAGNOSTIC | Routin | 08/20/2018 | | Results for this | | CARDIAC CATH | e | 16:27 PST | | procedure are in the | | | | | | results section. | + +--------+ + + + from Last 3 Months Results CV Adult Cardiac Cath Diag/PCI (08/20/2018 16:27 PST) + + | Specimen | + + | | + + + + + | Narrative | Performed At | + + + | This exam has been auto-finalized and the interpretation may exist | [facility] | | elsewhere in the chart. | | + + + + +---------+ + + | Performing | Address | City/State/Zipcode | Phone Number | | Organization | | | | + +---------+ + + | [facility] | | | | + +---------+ + + from Last 3 Months Advance Directives Patient has advance care planning documents on file. For more information, please contact:[facility] [employer] [facility] [place] [address]"
--- OUTSIDE RECORDS SUMMARY | ~2018-11-15 | XMS | Encounter Summary ---
Demographics + + + | Address | [address] | | | [place] [address] | + + + | Home Phone | | + + + | Preferred Language | Unknown | + + + | Marital Status | | + + + | Sikh Affiliation | 1027 | + + + | Race | Unknown | + + + | Ethnic Group | Unknown | + + + Author + + + | Author | [facility] | + + + | Organization | [facility] | + + + | Address | Unknown | + + + | Phone | Unavailable | + + + Support + + + + + | Name | Relationship | Address | Phone | + + + + + | Libby Soriano | ECON | [address] | | | | | [place], [place] | | | | | [address] | | + + + + + Care Team Providers + +------+ + | Care Acetylene Operator Name | Role | Phone | + +------+ + | Rajiv Wise MD | PCP | | + +------+ + Encounter Details +--------+ + + + + | Date | Type | Department | Care Team | Description | +--------+ + + + + | 10/28/ | Telephone | [facility] | Fidencio, | | | 2019 | | [place] [address] | | | | | [address] | | | | | | [place], [place] [address] | | | | | | [phone] | | | +--------+ + + + [...] [address] | | | | | | [place] [address] | | | | | | [phone] | | | | | | | | +--------+ + + + + | 11/30/ | Initial | Nephrology | Pavel Veras MD | | | 2018 | consult | | [address] | | | | | | [address] [place] | | | | | | [address] | | | | | | | | +--------+ + + + + | 01/11/ | Office | Cardiology | Sher Max, | | | 2018 | Visit | | [address] | | | | | | [place], | | | | | | [place] [address] | | | | | | [phone] | | | | | | | | +--------+ + + + + + +--------+ + + | Name | Priori | Associated Diagnoses | Order Schedule | | | ty | | | + +--------+ + + | Basic metabolic panel | Routin | CKD (chronic | Expected: | | | e | kidney disease), | 11/23/2018, Expires: | | | | stage IV (HCC) | 10/29/2019 | | | | Anemia of chronic | | | | | renal failure, stage | | | | | 4 (severe) ([facility]) | | + +--------+ + + | CBC W/Auto Diff (Reflex to | Routin | CKD (chronic | Expected: | | Manual) | e | kidney disease), | 11/23/2018, Expires: | | | | stage IV (HCC) | 10/29/2019 | | | | Anemia of chronic | | | | | renal failure, stage | | | | | 4 (severe) ([facility]) | | + +--------+ + + | Protein / creatinine ratio, urine | Routin | CKD (chronic | Expected: | | | e | kidney disease), | 11/23/2018, Expires: | | | | stage IV (HCC) | 10/29/2019 | | | | Anemia of chronic | | | | | renal failure, stage | | | | | 4 (severe) (HCC) | | + +--------+ + + | Uric acid | Routin | CKD (chronic | Expected: | | | e | kidney disease), | 11/23/2018, Expires: | | | | stage IV (HCC) | 10/29/2019 | | | | Anemia of chronic | | | | | renal failure, stage | | | | | 4 (severe) (HCC) | | + +--------+ + + | Urinalysis (reflex to micro) | Routin | CKD (chronic | Expected: | | | e | kidney disease), | 11/23/2018, Expires: | | | | stage IV (HCC) | 10/29/2019 | | | | Anemia of chronic | | | | | renal failure, stage | | | | | 4 (severe) ([facility]) | | + +--------+ + + as of this encounter Visit Diagnoses + + | Diagnosis | + + | CKD (chronic kidney disease), stage IV (HCC) - Primary | + + | Chronic kidney disease, Stage IV (severe) | + + | Anemia of chronic renal failure, stage 4 (severe) (HCC) | + +"
--- OUTSIDE RECORDS SUMMARY | ~2018-11-15 | XMS | Clinical Summary ---
Demographics + + + | Address | [address] | | | [place] [address] | + + + | Home Phone | | + + + | Preferred Language | Unknown | + + + | Marital Status | | + + + | Lutheran Affiliation | 1027 | + + + | Race | Unknown | + + + | Ethnic Group | Unknown | + + + Author + + + | Author | [facility] | + + + | Organization | [facility] | + + + | Address | Unknown | + + + | Phone | Unavailable | + + + Support + + + + + | Name | Relationship | Address | Phone | + + + + + | Libby Soriano | ECON | [address] | | | | | [place], [place] | | | | | [address] | | + + + + + Care Team Providers + +------+ + | Care Data Deliverables Manager Name | Role | Phone | + +------+ + | Rajiv Wise MD | PP | | + +------+ + Allergies + + + + + + | Active Allergy | Reactions | Severity | Noted | Comments | | | | | Date | | + + + + + + | Beta Adrenergic | Shortness of Breath | High | 20 | Swelling in throat | | Blockers [...] | | | + + +--------+---------+------+------+-------+ | metFORMIN | Take 500 mg by mouth | | | / | | Activ | | (GLUCOPHAGE) 500 MG | 2 (two) times | | | 4/20 | | e | | tablet | daily. | | | 17 | | | + + +--------+---------+------+------+-------+ | [...] | e | + + +--------+---------+------+------+-------+ | losartan (COZAAR) | Take 50 mg by mouth | | | | | Activ | | 100 MG tablet | every evening. | | | | | e | + + +--------+---------+------+------+-------+ | cetirizine | Take 10 mg by mouth | | | | | Activ | | (ZYRTEC) 10 MG | daily. | | | | | e | | tablet | | | | | | | + + +--------+---------+------+------+-------+ | apixaban (ELIQUIS) | Take 0.5 tablets by | 180 | 3 | 03/2 | | Activ | | 5 MG tablet | mouth 2 (two) times | tablet | | 8/20 | | e | | | daily. | | | 19 | | | + + +--------+---------+------+------+-------+ | diltiazem | Take 1 tablet by | 30 | 11 | 03/2 | 03/2 | Activ | | (CARDIZEM LA) 120 MG | mouth daily. | tablet | | 8/20 | 7/20 | e | | 24 hr tablet | | | | 19 | 20 | | + + +--------+---------+------+------+-------+ | torsemide | Take 1 tablet by | 90 | 0 | 04/1 | 04/1 | Activ | | (DEMADEX) 10 MG | mouth daily. | tablet | | 5/20 | 4/20 | e | | tablet | | | | 19 | 20 | | + + +--------+---------+------+------+-------+ | hydrALAZINE | Take 1 tablet by | 90 | 11 | 04/1 | 04/1 | Activ | | (APRESOLINE) 10 MG | mouth 3 (three) | tablet | | 5/20 | 4/20 | e | | tablet | times daily. | | | 19 | 20 | | + + +--------+---------+------+------+-------+ | torsemide | Take 0.5 tablets by | 90 | 3 | 03/2 | 04/1 | Disco | | (DEMADEX) 20 MG | mouth 2 (two) times | tablet | | 8/20 | 5/20 | ntinu | | tablet | daily. | | | 19 | 19 | ed | + + +--------+---------+------+------+-------+ | potassium chloride | Take 0.5 tablets by | 15 | 3 | 03/2 | 04/1 | Disco | | SA (K-DUR,KLOR-CON) | mouth every other | tablet | | 8/20 | 5/20 | ntinu | | 20 MEQ tablet | day. | | | 19 | 19 | ed | + + +--------+---------+------+------+-------+ Active Problems + + + | Problem | Noted Date | + + + | COPD, moderate (HCC) [...] + + | 10/28/ | Telephone | | Fidencio, | | | 2018 | | | [address] | | +--------+ + + + + | 10/27/ | Documentati | | Cheryl Cantu MA | Labs Only ([facility] | | 2018 | on Only | | | Labs 10/22/2018) | +--------+ + + + + | 10/27/ | Documentati | | Pavel Veras MD | Other (Referral from | | 2018 | on Only | | | Barbara Quiroz | | | | | | Maryann) | +--------+ + + + + | 10/26/ | Office | | Barbara Wolf | Paroxysmal atrial | | 2018 | Visit | | DANTE Quiroz | fibrillation (HCC) | | | | | | (Primary Dx); S/p | | | | | | TAVR (transcatheter | | | | | | [...] moderate | | | | | | ([facility]) | +--------+ + + + + | 10/13/ | Documentati | | Cheryl Cantu MA | Other ([facility] | | 2018 | on Only | | | Sleep Report and PFT | | | | | | 08/08/2018) | +--------+ + + + + | 10/08/ | Office | | Barbara Wolf | S/p TAVR | | 2018 | Visit | | DANTE Quiroz | (transcatheter | | | | | | aortic valve | | | | | | replacement), | | | | | | bioprosthetic | | | | | | (Primary Dx); Aortic | | [...] | | | | disease (HCC) | +--------+ + + + + [...] + + + | Respiratory Rate | 17 | 09/30/2017 3:23 PM PDT | + + + + [...] AM PDT | + + + + Plan of Treatment +--------+ + + + + | Date | Type | Specialty | Care Team | Description | +--------+ + + + + | 11/23/ | Office | | Barbara Wolf | | | 2019 | Visit | | [address] | | | | | | [address] | | | | | | [place] [address] | | | | | | [phone] | | | | | | | | +--------+ + + + + | 11/30/ | Initial | | Pavel Veras MD | | | 2019 | consult | | [address] | | | | | | [address] [place] | | | | | | [address] | | | | | | | | +--------+ + + + + | 01/11/ | Office | | Sher Max, | | | 2019 | Visit | | MD [address] | | | | | | [place], | | | | | | [place] [address] | | | | | | [phone] | | | | | | | | +--------+ + + + + + + + [...] fibrillation | | | | | | ([facility]) New onset | | | | | | left bundle branch | | | | | | block (LBBB) | | | | | | Moderate to severe | | | | | | pulmonary | | | | | | hypertension ([facility]) | | | | | | Mild [...] | | | | | | insulin ([facility]) Stage | | | | | | 3 chronic kidney | | | | | | disease ([facility]) | | | | | | Obstructive sleep | | | | | | apnea syndrome | | | | | | COPD, moderate (HCC) | | + +--------+ + + + from Last 3 Months Results EKG STANDARD 12 LEAD (10/26/2018 10:58 AM)Only the most recent of 2 results within the time period is included. + + + + + | Component [...] | ms | [facility] | | (Radha) | | | | + + + + + | Calculated R [place] | 117 | degrees | [facility] | + + + + + | Calculated T [place] | 33 | degrees | [facility] | + + + + + | Diagnosis | Please refer to | | [facility] | | | Providers office visit | | | | | note for Providers | | | | | Interpretation.Confirmed | | | | | by [facility] [place] Read Only, | | | | | [facility] Vincent (502), | | | | | associate editor Edmundo Mace | | | | | (524) on 10/26/2018 | | | | | 11:20:45 AM | | | + + + + + + + + + + | Performing | Address | City/State/Zipcode | Phone Number | | Organization | | | | + + + + + | [facility] | [address] | [place] [address] | | + + + + + [...] +------+-------+ + | MEDICARE | MEDICA | [id number] | | | [address] | | | RE | | | | [place] [address] | | | IP-OP | | | | | + +--------+ +------+-------+ + | [employer]ALTHCARE | UNITED | [id number] | | | | | | | [...] | Self | [birth year] Home: | [address] | | | [place] | | 1945 | [phone] [place] | | | marin | | | 2018 | [address] | + +--------+ +--------+ + +
--- OUTSIDE RECORDS SUMMARY | ~2018-11-15 | XMS | Encounter Summary ---
Demographics + + + | Address | [address] | | | [place] [address] | + + + | Home Phone | | + + + | Preferred Language | Unknown | + + + | Marital Status | | + + + | Jehovah'S Witness Affiliation | 1027 | + + + | Race | Unknown | + + + | Ethnic Group | Unknown | + + + Author + + + | Author | [facility] | + + + | Organization | [facility] | + + + | Address | Unknown | + + + | Phone | Unavailable | + + + Support + + + + + | Name | Relationship | Address | Phone | + + + + + | Libby Soriano | ECON | [address] | | | | | [place], [place] | | | | | [address] | | + + + + + Care Team Providers + +------+ + | Care Tobacco Stemmer Name | Role | Phone | + +------+ + | Rajiv Wise MD | PCP | | + +------+ + Reason for Visit +--------+ + | Reason | Comments | +--------+ + | Other | Referral from Fernanda Maryann | +--------+ + Encounter Details +--------+ + + + + | Date | Type | Department | Care Team | Description | +--------+ + + + + | 10/27/ | Documentati | [facility] | Pavel Veras MD | Other (Referral from | | 2019 | on Only | [address] | [address] | Fernanda | | | | [address] | [address] [place], [place] | Maryann) | | | | [place] [address] | [address] | | | | | [phone] | | | +--------+ + + + [...] F | | | | | | [place] [address] | | | | | | [phone] | | | | | | | | +--------+ + + + + | 11/30/ | Initial | Nephrology | Pavel Veras MD | | | 2019 | consult | | [address] | | | | | | [address] [place], [place] | | | | | | [id number] | | | | | | | | +--------+ + + + + | 01/11/ | Office | Cardiology | Sher Max, | | | 2019 | Visit | | MD [address] | | | | | | [place], | | | | | | [place] [address] | | | | | | [phone] | | | | | | | | +--------+ + + + + as of this encounter Visit Diagnoses Not on filein this encounter"
--- OUTSIDE RECORDS SUMMARY | ~2018-11-15 | XMS | Clinical Summary ---
Demographics + + + | Address | [address] | | | [place] [address] | + + + | Home Phone | | + + + | Preferred Language | Unknown | + + + | Marital Status | | + + + | Pentecostalism Affiliation | 1027 | + + + | Race | Unknown | + + + | Ethnic Group | Unknown | + + + Author + + + | Author | [facility] | | | and [place] | + + + | Organization | [facility] | | | and [place] | + + + | Address | Unknown | + + + | Phone | Unavailable | + + + Support + + + + + | Name | Relationship | Address | Phone | + + + + + | Libby Soriano | ECON | [address] | | | | | [place], [place] | | | | | [address] | | + + + + + Care Team Providers + +------+ + | Care Chlorine Operator Name | Role | Phone | [...] on file. For more information, please contact:[facility]at [facility] [place] [address]"
--- OUTSIDE RECORDS SUMMARY | ~2018-11-15 | XMS | Encounter Summary ---
Demographics + + + | Address | [address] | | | [place] [address] | + + + | Home Phone | | + + + | Preferred Language | Unknown | + + + | Marital Status | | + + + | Yarsani Affiliation | 1027 | + + + | Race | Unknown | + + + | Ethnic Group | Unknown | + + + Author + + + | Author | [facility] [employer] | + + + | Organization | [facility] | + + + | Address | Unknown | + + + | Phone | Unavailable | + + + Support + + + + + | Name | Relationship | Address | Phone | + + + + + | Libby Soriano | ECON | [address] | | | | | [place], [place] | | | | | [address] | | + + + + + Care Team Providers + +------+ + | Care Eyelet Machine Operator Name | Role | Phone [...] | | | | | [place], [place] [address] | | | | | | [phone] | | | +--------+ + + + [...] Velás[address] | | | | | | [place] [address] | | | | | | [phone] | | | | | | | | +--------+ + + + + | 11/30/ | Initial | Nephrology | Pavel Veras MD | | | 2018 | consult | | [address] | | | | | | [address] [place] | | | | | | [address] | | | | | | | | +--------+ + + + + | 01/11/ | Office | Cardiology | Sher Max, | | | 2018 | Visit | | [address] | | | | | | [place], | | | | | | [place] [address] | | | | | | [phone] | | | | | | | [...] | | | | | 4 (severe) ([facility]) | | + +--------+ + + | CBC W/Auto Diff (Reflex to | Routin | CKD (chronic | Expected: | | Manual) | e | kidney disease), | 11/23/2018, Expires: | | | | stage IV (HCC) | 10/29/2019 | | | | Anemia of chronic | | | | | renal failure, stage | | | | | 4 (severe) ([facility]) | | + +--------+ + + | [...] | | | | | 4 (severe) ([facility]) | | + +--------+ + + as of this encounter Visit Diagnoses + + | Diagnosis | + + | CKD (chronic kidney disease), stage IV (HCC) - Primary | + + | Chronic kidney disease, Stage IV (severe) | + + | Anemia of chronic renal failure, stage 4 (severe) (HCC) | + +"
--- OUTSIDE RECORDS SUMMARY | ~2018-11-15 | XMS | Clinical Summary ---
Demographics + + + | Address | [address] | | | [place] [address] | + + + | Home Phone | | + + + | Preferred Language | Unknown | + + + | Marital Status | | + + + | Alevism Affiliation | 1027 | + + + | Race | Unknown | + + + | Ethnic Group | Unknown | + + + Author + + + | Author | [facility] [employer] | + + + | Organization | [facility] [employer] [facility] | + + + | Address | Unknown | + + + | Phone | Unavailable | + + + Support + + + + + | Name | Relationship | Address | Phone | + + + + + | Libby Soriano | ECON | [address] | | | | | [place], [place] | | | | | [address] | | + + + + + Care Team Providers + +------+ + | Care Portrait Photographer Name | Role | Phone | + +------+ + | Rajiv Wies MD | PP | | + +------+ [...] moderate | | | | | | ([facility]) | +--------+ + + + + | [...] | | | | | [place] [address] | | | | | | [phone] | | | | | | | | +--------+ + + + + | 11/30/ | Initial | | Pavel Veras MD | | | 2019 | consult | | [address] | | | | | | [address] [place] | | | | | | [address] | | | | | | | | +--------+ + + + + | 01/11/ | Office | | Sher Max, | | | 2019 | Visit | | MD [address] | | | | | | [place], | | | | | | [place] [address] | | | | | | [phone] | | | | | | | [...] fibrillation | | | | | | ([facility]) New onset | | | | | | left bundle branch | | | | | | block (LBBB) | | | | | | Moderate to severe | | | | | | pulmonary | | | | | | hypertension ([facility]) | | | | | | Mild [...] | | | | | | insulin ([facility]) Stage | | | | | | 3 chronic kidney | | | | | | disease ([facility]) | | | | | | Obstructive [...] + + + + | Calculated R [place] | 117 | degrees | [facility] E[facility] | + + + + + | Calculated T [place] | 33 | degrees | [facility] E[facility] | + + + + + | Diagnosis | Please refer to | | [facility] E[facility] | | | Providers office visit | | | | | note for Providers | | | | | Interpretation.Confirmed | | | | | by [facility] [place] Read Only, | | | | | [facility] Vincent ([id number]), | | | | | editor farm journal Edmundo Mace | | | | | ([id number]) on 10/26/2018 | | | | | 11:20:45 AM | | | + + + + + + + + + + | Performing | Address | City/State/Zipcode | Phone Number | | Organization | | | | + + + + + | [facility] | [address] | [facility] [place] [address] | | + + + + + [...] +------+-------+ + | MEDICARE | MEDICA | [id number] | | | [address] | | | RE | | | | [place] [address] | | | IP-OP | | | | | + +--------+ +------+-------+ + | UNITED HEALTHCARE | UNITED | [id number] | | | | | | | [...] | Self [birth year] Home: | [address] | | | verna/Amadeo | | 1945 | [phone] [place] | | | marin | | | 2019 | [address] | + +--------+ +--------+ + +
--- OUTSIDE RECORDS SUMMARY | ~2018-11-15 | XMS | Encounter Summary ---
Demographics + + + | Address | [address] | | | [place] [address] | + + + | Home Phone | | + + + | Preferred Language | Unknown | + + + | Marital Status | | + + + | Mormon Affiliation | 1027 | + + + | Race | Unknown | + + + | Ethnic Group | Unknown | + + + Author + + + | Author | [facility] [employer] | + + + | Organization | [facility] | + + + | Address | Unknown | + + + | Phone | Unavailable | + + + Support + + + + + | Name | Relationship | Address | Phone | + + + + + | Libby Soriano | ECON | [address] | | | | | [place], [place] | | | | | [address] | | + + + + + Care Team Providers + +------+ + | Care Gang Punch Operator Name | Role | Phone | [...] | | | | | [place], [place] [address] | | | | | | [phone] | | | +--------+ + + + [...] [address] | | | | | | [place] [address] | | | | | | [phone] | | | | | | | | +--------+ + + + + | 11/30/ | Initial | Nephrology | Pavel Veras MD | | | 2018 | consult | | [address] | | | | | | [address] [place] | | | | | | [address] | | | | | | | | +--------+ + + + + | 01/11/ | Office | Cardiology | Sher Max, | | | 2018 | Visit | | [address] | | | | | | [place], | | | | | | [place] [address] | | | | | | [phone] | | | | | | | [...] | | | | | 4 (severe) ([facility]) | | + +--------+ + + | CBC W/Auto Diff (Reflex to | Routin | CKD (chronic | Expected: | | Manual) | e | kidney disease), | 11/23/2018, Expires: | | | | stage IV (HCC) | 10/29/2019 | | | | Anemia of chronic | | | | | renal failure, stage | | | | | 4 (severe) ([facility]) | | + +--------+ + + [...] | | | | | 4 (severe) ([facility]) | | + +--------+ + + as of this encounter Visit Diagnoses + + | Diagnosis | + + | CKD (chronic kidney disease), stage IV (HCC) - Primary | + + | Chronic kidney disease, Stage IV (severe) | + + | Anemia of chronic renal failure, stage 4 (severe) (HCC) | + +"
--- OUTSIDE RECORDS SUMMARY | ~2018-11-15 | XMS | Clinical Summary ---
Demographics + + + | Address | [address] | | | [place] [address] | + + + | Home Phone | | + + + | Preferred Language | Unknown | + + + | Marital Status | | + + + | Methodist Affiliation | 1027 | + + + | Race | Unknown | + + + | Ethnic Group | Unknown | + + + Author + + + | Author | [facility] | | | and [place] | + + + | Organization | [facility] | | | and [place] | + + + | Address | Unknown | + + + | Phone | Unavailable | + + + Support + + + + + | Name | Relationship | Address | Phone | + + + + + | Libby Soriano | ECON | [address] | | | | | [place], [place] | | | | | [address] | | + + + + + Care Team Providers + +------+ + | Care Vice President Network Name | Role | Phone | + [...] on file. For more information, please contact:[facility] [place] [address]"
--- OUTSIDE RECORDS SUMMARY | ~2018-11-15 | XMS | Encounter Summary ---
Demographics + + + | Address | [address] | | | [place] [address] | + + + | Home Phone | | + + + | Preferred Language | Unknown | + + + | Marital Status | | + + + | Lutheran Affiliation | 1027 | + + + | Race | Unknown | + + + | Ethnic Group | Unknown | + + + Author + + + | Author | [facility] | + + + | Organization | [facility] [employer] [facility] | + + + | Address | Unknown | + + + | Phone | Unavailable | + + + Support + + + + + | Name | Relationship | Address | Phone | + + + + + | Libby Soriano | ECON | [address] | | | | | [place], [place] | | | | | [address] | | + + + + + Care Team Providers + +------+ + | Care Tire Maintenance Technician Name | Role | Phone | + [...] + | 10/13/ | Documentati | [facility] [place] | Pepe, Cheryl Castillo, MA | Other ([facility] | | 2019 | on Only | Cardiology [place] | | Sleep Report and PFT | | | | [address] [facility] [address] | | 08/08/2018) | | | | [address] | | | | | | [place] [address] | | | | | | [phone] | | | +--------+ + + + [...] | | | | | | [place] [address] | | | | | | [phone] | | | | | | | | +--------+ + + + + | 11/30/ | Initial | Nephrology | Pavel Veras MD | | | 2019 | consult | | [address] | | | | | | [address] [place] | | | | | | [id number] | | | | | | | | +--------+ + + + + | 01/11/ | Office | Cardiology | Sher Max, | | | 2019 | Visit | | [address] | | | | | | [place], | | | | | | [place] [address] | | | | | | [phone] | | | | | | | | +--------+ + + + + as of this encounter Visit Diagnoses Not on filein this encounter"
--- OUTSIDE RECORDS SUMMARY | ~2018-11-15 | XMS | Encounter Summary ---
Demographics + + + | Address | [address] | | | [place] [address] | + + + | Home Phone | | + + + | Preferred Language | Unknown | + + + | Marital Status | | + + + | Episcopal Affiliation | 1027 | + + + | Race | Unknown | + + + | Ethnic Group | Unknown | + + + Author + + + | Author | [facility] [employer] | + + + | Organization | [facility] | + + + | Address | Unknown | + + + | Phone | Unavailable | + + + Support + + + + + | Name | Relationship | Address | Phone | + + + + + | Libby Soriano | ECON | [address] | | | | | [place], [place] | | | | | [address] | | + + + + + Care Team Providers + +------+ + | Care Secretary Administrative Assistant Name | Role | Phone | [...] | | | [address] | [place] [address] | TAVR (transcatheter | | | | [place] [address] | [phone] | aortic valve | | | | [phone] | | replacement), | | | | [...] you fasting labs to be done at [facility] in 3 weeks Take Cardizem 120 mg to take once a day in the morning I have decreased your losartan to 50 mg and take in the evening Ge non fasting labs done in 3 weeks See me back in one month, and will see Dr. Max in January [address] [place] [address] Khan and discuss with him [...] 30 grams for men. Date Last Reviewed: 12/12/201619992009-2844 [employer] [place] [address]. All righ ts reserved. This information is [...] salt. This means you can have only [id number] to 700mg of sodium at each meal.People [...] matzo crackers Avoid: Salted crackers, pretzels, popcorn, Urdu toast, pancakes, muffins Dairy Ok: Milk, chocolate [...] vegetables; tomato juice, olives Date Last Reviewed: 02/12/201619990101-0205 [employer]. [address] [place] [address]. All righ ts reserved. This information is [...] follow up on her re sponse to [facility], and decreasing her diuretic for increased renal failure. She is a patient of who is her for primary specimen collector, and last seen by him 1 . Today, I reviewed all previous documentation available to me in electronic medical tame[address] and from external sources She has a history of aortic stenosis with placement of TAVR at [facility] in [place] 04/06/2018, and still followed by [facility], paroxysmal atrial fibrillation, hypertension, severe [...] m g twice daily, referred her to apprentice photographer Dr. Veras for further evaluation of her [...] with sl eep specialist, Dr. Quintero in [place]. She finds it much easier and more [...] use. Exercises w ith walking Lives in [place]. 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, [facility], Dr. Esau Gregory ) 23 mm Leon [...] left bundle branch block, rate 84 bpm, [place] 234 ms, QRS 142 ms, QTC 463 [...] left bundle branch block rate 80 bpm, [place] 240 ms, QRS 146 ms, QTC 472 [...] Dr. Sandrine Castle's, and also with [facility] for evaluation and treatment of PAH. [...] follow up with Dr. Max at our [facility] January 11, and she is going to [...] surgical history. Problem list. DANTE Lau [facility] 10/26/2018in this encounter Plan of Treatment [...] F | | | | | | [place] [address] | | | | | | [phone] | | | | | | | | +--------+ + + + + | 11/30/ | Initial | Nephrology | Pavel Veras MD | | | 2019 | consult | | [address] | | | | | | [address] [place], [place] | | | | | | [address] | | | | | | | | +--------+ + + + + | 01/11/ | Office | Cardiology | Sher Max, | | | 2018 | Visit | | [address] | | | | | | [place], | | | | | | [place] [address] | | | | | | [phone] | | | | | | | [...] + + + + | Calculated R [place] | 117 | degrees | [facility] E[facility] | + + + + + | Calculated T [place] | 33 | degrees | [facility] | + + + + + | Diagnosis | Please refer to | | [facility] | | | Providers office visit | | | | | note for Providers | | | | | Interpretation.Confirmed | | | | | by [facility] [place] Read Only, | | | | | [facility] Vincent ([id number]), | | | | | health editor Edmundo Mace | | | | | (253) on 10/26/2018 | | | | | 11:20:45 AM | | | + + + + + + + + + + | Performing | Address | City/State/Zipcode | Phone Number | | Organization | | | | + + + + + | [facility] | [address] | [place] [address] | | + + + + + [...]
--- OUTSIDE RECORDS SUMMARY | ~2018-11-15 | XMS | Encounter Summary ---
Demographics + + + | Address | [address] | | | [place] [address] | + + + | Home Phone [...] + | Author | [facility] [employer] | + + + | Organization | [facility] | + + + | Address | Unknown | + + + | Phone | Unavailable | + + + Support + + + + + | Name | Relationship | Address | Phone | + + + + + | Libby Soriano | ECON | [address] | | | | | [place], [place] | | | | | [address] | | + + + + + Care Team Providers + +------+ + | Care Cutter Grinder Operator Name | Role | Phone | [...] | | | [address] | [place] [address] | TAVR (transcatheter | | | | [place] [address] | [phone] | aortic valve | | | | [phone] | | replacement), | | | | [...] you fasting labs to be done at [facility] in 3 weeks Take Cardizem 120 mg to take once a day in the morning I have decreased your losartan to 50 mg and take in the evening Ge non fasting labs done in 3 weeks See me back in one month, and will see Dr. Max in January [address] [place] [address] Khan and discuss with him [...] 30 grams for men. Date Last Reviewed: 12/12/201619990168-5940 [employer]. [address] [place] [address]. All righ ts reserved. This information is [...] salt. This means you can have only [id number] to 700mg of sodium at each meal.People [...] matzo crackers Avoid: Salted crackers, pretzels, popcorn, Yakut toast, pancakes, muffins Dairy Ok: Milk, chocolate [...] vegetables; tomato juice, olives Date Last Reviewed: 02/12/201619998813-9159 [employer]. [address] [place] [address]. All righ ts reserved. This information is [...] follow up on her re sponse to [facility], and decreasing her diuretic for increased renal failure. She is a patient of who is her for primary precision aircraft systems assembler, and last seen by him 1 . Today, I reviewed all previous documentation available to me in electronic medical [address] and from external sources She has a history of aortic stenosis with placement of TAVR at [facility] in [place] 04/06/2018, and still followed by [facility], paroxysmal atrial fibrillation, hypertension, severe [...] m g twice daily, referred her to social services technician Dr. Veras for further evaluation of her [...] with sl eep specialist, Dr. Quintero in [place]. She finds it much easier and more [...] use. 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, [facility], Dr. Esau Gregory ) 23 mm Leon [...] left bundle branch block, rate 84 bpm, [place] 234 ms, QRS 142 ms, QTC 463 [...] left bundle branch block rate 80 bpm, [place] 240 ms, QRS 146 ms, QTC 472 [...] Dr. Sandrine Castle's, and also with [facility] for evaluation and treatment of PAH. I [...] enzymes. She will follow up with Dr. Mxa at our [facility] January 11, and she is going [...] surgical history. Problem list. DANTE Lau [facility] 10/26/2018in this encounter Plan of Treatment [...] F | | | | | | [place] [address] | | | | | | [phone] | | | | | | | | +--------+ + + + + | 11/30/ | Initial | Nephrology | Pavel Veras MD | | | 2019 | consult | | [address] | | | | | | [address] [place], [place] | | | | | | [address] | | | | | | | | +--------+ + + + + | 01/11/ | Office | Cardiology | Sher Max, | | | 2018 | Visit | | [address] | | | | | | [place], | | | | | | [place] [address] | | | | | | [phone] | | | | | | | [...] + + + + | Calculated R [place] | 117 | degrees | [facility] E[facility] | + + + + + | Calculated T [place] | 33 | degrees | [facility] | + + + + + | Diagnosis | Please refer to | | [facility] | | | Providers office visit | | | | | note for Providers | | | | | Interpretation.Confirmed | | | | | by [facility] [place] Read Only, | | | | | [facility] Vincent ([id number]), | | | | | scientific editor Edmundo Mace | | | | | (253) on 10/26/2018 | | | | | 11:20:45 AM | | | + + + + + + + + + + | Performing | Address | City/State/Zipcode | Phone Number | | Organization | | | | + + + + + | [facility] | [address] | [place] [address] | | + + + + + [...]
--- OUTSIDE RECORDS SUMMARY | ~2018-11-15 | XMS | Encounter Summary ---
Demographics + + + | Address | [address] | | | [place] [address] | + + + | Home Phone | | + + + | Preferred Language | Unknown | + + + | Marital Status | | + + + | Church Affiliation | 1027 | + + + | Race | Unknown | + + + | Ethnic Group | Unknown | + + + Author + + + | Author | [facility] [employer] | + + + | Organization | [facility] [employer] [facility] | + + + | Address | Unknown | + + + | Phone | Unavailable | + + + Support + + + + + | Name | Relationship | Address | Phone | + + + + + | Libby Soriano | ECON | [address] | | | | | [place], [place] | | | | | [address] | | + + + + + Care Team Providers + +------+ + | Care Tetryl Dissolver Operator Name | Role | Phone | [...] | [address] | [address] [place], [place] | Maryann) | | | | [place] [address] | [address] | | | | | [phone] | | | +--------+ + + + [...] F | | | | | | [place] [address] | | | | | | [phone] | | | | | | | | +--------+ + + + + | 11/30/ | Initial | Nephrology | Pavel Veras MD | | | 2019 | consult | | [address] | | | | | | [address] [place], [place] | | | | | | [id number] | | | | | | | | +--------+ + + + + | 01/11/ | Office | Cardiology | Sher Max, | | | 2019 | Visit | | MD [address] | | | | | | [place], | | | | | | [place] [address] | | | | | | [phone] | | | | | | | | +--------+ + + + + as of this encounter Visit Diagnoses Not on filein this encounter"
--- OUTSIDE RECORDS SUMMARY | ~2018-11-15 | XMS | Encounter Summary ---
Demographics + + + | Address | [address] | | | [place] [address] | + + + | Home Phone | | + + + | Preferred Language | Unknown | + + + | Marital Status | | + + + | Moravian Affiliation | 1027 | + + + | Race | Unknown | + + + | Ethnic Group | Unknown | + + + Author + + + | Author | [facility] | + + + | Organization | [facility] | + + + | Address | Unknown | + + + | Phone | Unavailable | + + + Support + + + + + | Name | Relationship | Address | Phone | + + + + + | Libby Soriano | ECON | [address] | | | | | [place], [place] | | | | | [address] | | + + + + + Care Team Providers + +------+ + | Care Sound Equipment Mechanic Name | Role | Phone | + +------+ + | Rajiv Wise MD | PCP | | + +------+ + Reason for Visit + + + | Reason | Comments | + + + | Labs Only | [facility] 10/22/2018 | + + + Encounter Details +--------+ + + + + | Date | Type | Department | Care Team | Description | +--------+ + + + + | 10/27/ | Documentati | [facility] | Cheryl Cantu MA | Labs Only ([facility] | | 2019 | on Only | Kasia Garibay | | Labs 10/22/2018) | | | | [address] [facility] [address] | | | | | | [address] | | | | | | [place] [address] | | | | | | [phone] | | | +--------+ + + + [...] [address] | | | | | | [place] [address] | | | | | | [phone] | | | | | | | | +--------+ + + + + | 11/30/ | Initial | Nephrology | Pavel Veras MD | | | 2019 | consult | | [address] | | | | | | [address] [place] | | | | | | [address] | | | | | | | | +--------+ + + + + | 01/11/ | Office | Cardiology | Sher Max, | | | 2019 | Visit | | [address] | | | | | | [place] | | | | | [place] [address] | | | | | | [phone] | | | | | | | | +--------+ + + + + as of this encounter Visit Diagnoses Not on filein this encounter"
--- OUTSIDE RECORDS SUMMARY | ~2018-11-15 | XMS | Encounter Summary ---
Demographics + + + | Address | [address] | | | [place] [address] | + + + | Home Phone | | + + + | Preferred Language | Unknown | + + + | Marital Status | | + + + | Rastafarian Affiliation | 1027 | + + + | Race | Unknown | + + + | Ethnic Group | Unknown | + + + Author + + + | Author | [facility] | + + + | Organization | [facility] [facility] | + + + | Address | Unknown | + + + | Phone | Unavailable | + + + Support + + + + + | Name | Relationship | Address | Phone | + + + + + | Libby Soriano | ECON | [address] | | | | | [place], [place] | | | | | [address] | | + + + + + Care Team Providers + +------+ + | Care Dance Entertainer Name | Role | Phone | + [...] | | Required | | hypertension | SENIOR PRODUCT DEVELOPMENT MANAGER [address] | | | | | Type [address] | [address] | [address] | | | | | diabetes | Bob [address] | [place], [place] | | | | | mellitus | [place], [place] | [address] Phone: | | | | | with stage 3 | [address] | [phone] | | | | | chronic | Phone: | Fax: | | | | | kidney | [phone] | [phone] | | | | | disease, | Fax: | | | | | | without | [phone] | | | | | | long-term [...] | | | Way [address] | [place] [address] | replacement), | | | | [place] [address] | [phone] | bioprosthetic | | | | [phone] | | (Primary Dx); Aortic | | [...] you fasting labs to be done at [facility] in 2 weeks I have ordered [...] patient of who is her for primary curriculum assistant principal, and last seen by him 1 . Today, I reviewed all previous documentation available to me in electronic medical tameka rd and from external sources She has a history of aortic stenosis with placement of TAVR at [facility] in [place] 04/06/2018, and still followed by [place] valve clinic, paroxysmal atrial fibrillation, hypertension, severe [...] care with sleep specialist, Dr. Quintero in [facility], and is now wearing her [...] Exercises w ith and tolerates. Lives in [place]. 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, [...] left bundle branch block, rate 84 bpm, [place] 234 ms, QRS 142 ms, QTC 463 [...] disease, without long-term current use of insulin ([facility]) 9. Stage 3 chronic kidney disease (HCC) 10. Obstructive sleep apnea syndrome 11. COPD, moderate ([facility]) 12. Encounter for monitoring diuretic therapy [...] past surgical history. Problem list. DANTE Lau [facility] Cardiology 10/08/2018in this encounter Plan of [...] [address] | | | | | | [place] [address] | | | | | | [phone] | | | | | | | | +--------+ + + + + | 11/30/ | Initial | Nephrology | Pavel Veras MD | | | 2019 | consult | | [address] | | | | | | [address] [facility] | | | | | | [address] | | | | | | | | +--------+ + + + + | 01/11/ | Office | Cardiology | Sher Max, | | | 2019 | Visit | | MD [address] | | | | | | [place], | | | | | | [place] [address] | | | | | | [phone] | | | | | | | [...] | | | | use of insulin ([facility]) | | | | | Stage [...] fibrillation | | | | | | ([facility]) New onset | | | | [...] | | | | | | insulin ([facility]) Stage | | | | | [...] + + + + | Calculated R [place] | 117 | degrees | [facility] E[facility] | + + + + + | Calculated T [place] | 32 | degrees | [facility] | + + + + + | Diagnosis | Please refer to | | [facility] | | | Providers office visit | | | | | note for Providers | | | | | Interpretation.Confirmed | | | | | by [facility] [place] Read Only, | | | | | [facility] Vincent ([id number]), | | | | | managing editor Edmundo Mace | | | | | (246) on 10/08/2018 | | | | | 4:25:33 PM | | | + + + + + + + + + + | Performing | Address | City/State/Zipcode | Phone Number | | Organization | | | | + + + + + | [facility] | [address] | [place] [address] | | + + + + + [...]
--- OUTSIDE RECORDS SUMMARY | ~2018-11-15 | XMS | Clinical Summary ---
Demographics + + + | Address | [address] | | | [place] [address] | + + + | Home Phone | | + + + | Preferred Language | Unknown | + + + | Marital Status | | + + + | Oriental Orthodox Affiliation | 1027 | + + + | Race | Unknown | + + + | Ethnic Group | Unknown | + + + Author + + + | Author | [facility] | + + + | Organization | [facility] | + + + | Address | Unknown | + + + | Phone | Unavailable | + + + Support + + + + + | Name | Relationship | Address | Phone | + + + + + | Libby Soriano | ECON | [address] | | | | | [place], [place] | | | | | [address] | | + + + + + Care Team Providers + +------+ + | Care Director School Of Nursing Name | Role | Phone | + [...] moderate | | | | | | ([facility]) | +--------+ + + + + | [...] | | | | | [place] [address] | | | | | | [phone] | | | | | | | | +--------+ + + + + | 11/30/ | Initial | | Pavel Veras MD | | | 2019 | consult | | [address] | | | | | | [address] [place] | | | | | | [address] | | | | | | | | +--------+ + + + + | 01/11/ | Office | | Sher Max, | | | 2019 | Visit | | MD [address] | | | | | | [place], | | | | | | [place] [address] | | | | | | [phone] | | | | | | | [...] | | | | | | ([facility]) New onset | | | | | | left bundle branch | | | | | | block (LBBB) | | | | | | Moderate to severe | | | | | | pulmonary | | | | | | hypertension ([facility]) | | | | | | Mild [...] | | | | | insulin ([facility]) Stage | | | | | | 3 chronic kidney | | | | | | disease ([facility]) | | | | | | Obstructive [...] + + + + | Calculated R [place] | 117 | degrees | [facility] E[facility] | + + + + + | Calculated T [place] | 33 | degrees | [facility] E[facility] | + + + + + | Diagnosis | Please refer to | | [facility] E[facility] | | | Providers office visit | | | | | note for Providers | | | | | Interpretation.Confirmed | | | | | by [facility] [place] Read Only, | | | | | [facility] Vincent (502), | | | | | graphics editor Edmundo Mace | | | | | (642) on 10/26/2018 | | | | | 11:20:45 AM | | | + + + + + + + + + + | Performing | Address | City/State/Zipcode | Phone Number | | Organization | | | | + + + + + | [facility] | [address] | [facility] [address] | | + + + + + [...] +------+-------+ + | MEDICARE | MEDICA | [id number] | | | [address] | | | RE | | | | [place] [address] | | | IP-OP | | | | | + +--------+ +------+-------+ + | UNITED HEALTHCARE | UNITED | [id number] | | | | | | | [...] | Self | [birth year] Home: | [address] | | | verna/Amadeo | | 1945 | [phone] | [place] | | | marin | | | 2018 | [address] | + +--------+ +--------+ + +
--- OUTSIDE RECORDS SUMMARY | ~2018-11-15 | XMS | Encounter Summary ---
Demographics + + + | Address | [address] | | | [place] [address] | + + + | Home Phone | | + + + | Preferred Language | Unknown | + + + | Marital Status | | + + + | Anabaptist Affiliation | 1027 | + + + | Race | Unknown | + + + | Ethnic Group | Unknown | + + + Author + + + | Author | [facility] | + + + | Organization | [facility] | + + + | Address | Unknown | + + + | Phone | Unavailable | + + + Support + + + + + | Name | Relationship | Address | Phone | + + + + + | Libby Soriano | ECON | [address] | | | | | [place], [place] | | | | | [address] | | + + + + + Care Team Providers + +------+ + | Care Marine Railway Operator Name | Role | Phone | [...] + | 10/27/ | Documentati | [facility] [place] | Cheryl Cantu MA | Labs Only ([facility] | | 2019 | on Only | Kasia Garibay | | Labs 10/22/2018) | | | | [address] [facility] [address] | | | | | | [address] | | | | | | [place] [address] | | | | | | [phone] | | | +--------+ + + + [...] | | | | | | [place] [address] | | | | | | [phone] | | | | | | | | +--------+ + + + + | 11/30/ | Initial | Nephrology | Pavel Veras MD | | | 2019 | consult | | [address] | | | | | | [address] [place] | | | | | | [address] | | | | | | | | +--------+ + + + + | 01/11/ | Office | Cardiology | Sher Max, | | | 2019 | Visit | | [address] | | | | | | [place] | | | | | [place] [address] | | | | | | [phone] | | | | | | | | +--------+ + + + + as of this encounter Visit Diagnoses Not on filein this encounter"
--- OUTSIDE RECORDS SUMMARY | ~2018-11-15 | XMS | Encounter Summary ---
Demographics + + + | Address | [address] | | | [place] [address] | + + + | Home Phone | | + + + | Preferred Language | Unknown | + + + | Marital Status | | + + + | Anglican Affiliation | 1027 | + + + | Race | Unknown | + + + | Ethnic Group | Unknown | + + + Author + + + | Author | [facility] | + + + | Organization | [facility] | + + + | Address | Unknown | + + + | Phone | Unavailable | + + + Support + + + + + | Name | Relationship | Address | Phone | + + + + + | Libby Soriano | ECON | [address] | | | | | [place], [place] | | | | | [address] | | + + + + + Care Team Providers + +------+ + | Care Communication Clerk Name | Role | Phone | [...] | | | [address] | [place] [address] | TAVR (transcatheter | | | | [place] [address] | [phone] | aortic valve | | | | [phone] | | replacement), | | | | [...] you fasting labs to be done at [facility] in 3 weeks Take Cardizem 120 mg to take once a day in the morning I have decreased your losartan to 50 mg and take in the evening Ge non fasting labs done in 3 weeks See me back in one month, and will see Dr. Max in January 11 in [place] Call Dr. Khan and discuss with him [...] 30 grams for men. Date Last Reviewed: 12/12/201619998181-9252 [employer]. [address] [place] [address]. All righ ts reserved. This information is [...] salt. This means you can have only to 700mg of sodium at each meal.People [...] matzo crackers Avoid: Salted crackers, pretzels, popcorn, Greek toast, pancakes, muffins Dairy Ok: Milk, chocolate [...] vegetables; tomato juice, olives Date Last Reviewed: 02/12/201619996595-7649 [employer]. [address] [place] [address]. All righ ts reserved. This information is [...] follow up on her re sponse to [facility], and decreasing her diuretic for increased renal failure. She is a patient of who is her for primary dog raiser, and last seen by him 1 . Today, I reviewed all previous documentation available to me in electronic medical tame[address] and from external sources She has a history of aortic stenosis with placement of TAVR at [facility] in [place] 04/06/2018, and still followed by [facility] valve clinic, paroxysmal atrial fibrillation, hypertension, severe [...] m g twice daily, referred her to brakeshoe repairer Dr. Veras for further evaluation of her [...] with sl eep specialist, Dr. Quintero in [place]. She finds it much easier and more [...] use. Exercises w ith walking Lives in [place]. 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, Dr. Esau Gregory ) 23 mm [...] left bundle branch block, rate 84 bpm, NM 234 ms, QRS 142 ms, QTC 463 [...] left bundle branch block rate 80 bpm, NM 240 ms, QRS 146 ms, QTC 472 [...] Dr. Sand[facility], and also with [facility] for evaluation and treatment of PAH. [...] follow up with Dr. Max at our [facility] January 11, and she is going to [...] surgical history. Problem list. DANTE Lau [facility] Cardiology 10/26/2018in this encounter Plan of Treatment [...] F | | | | | | [place] [address] | | | | | | [phone] | | | | | | | | +--------+ + + + + | 11/30/ | Initial | Nephrology | Pavel Veras MD | | | 2019 | consult | | [address] | | | | | | [address] [place], [place] | | | | | | [address] | | | | | | | | +--------+ + + + + | 01/11/ | Office | Cardiology | Sher Max, | | | 2018 | Visit | | [address] | | | | | | [place], | | | | | | [place] [address] | | | | | | [phone] | | | | | | | [...] + + + + | Calculated R [place] | 117 | degrees | [facility] E[facility] | + + + + + | Calculated T [place] | 33 | degrees | [facility] | + + + + + | Diagnosis | Please refer to | | [facility] | | | Providers office visit | | | | | note for Providers | | | | | Interpretation.Confirmed | | | | | by [facility] [place] Read Only, | | | | | [facility] Vincent ([id number]), | | | | | general expeditor Edmundo Mace | | | | | (253) on 10/26/2018 | | | | | 11:20:45 AM | | | + + + + + + + + + + | Performing | Address | City/State/Zipcode | Phone Number | | Organization | | | | + + + + + | [facility] | [address] | [place] [address] | | + + + + + [...]
--- OUTSIDE RECORDS SUMMARY | ~2018-11-15 | XMS | Encounter Summary ---
Demographics + + + | Address | [address] | | | [place] [address] | + + + | Home Phone | | + + + | Preferred Language | Unknown | + + + | Marital Status | | + + + | Jehovah'S Witness Affiliation | 1027 | + + + | Race | Unknown | + + + | Ethnic Group | Unknown | + + + Author + + + | Author | [facility] | + + + | Organization | [facility] [employer] [facility] | + + + | Address | Unknown | + + + | Phone | Unavailable | + + + Support + + + + + | Name | Relationship | Address | Phone | + + + + + | Libby Soriano | ECON | [address] | | | | | [place], [place] | | | | | [address] | | + + + + + Care Team Providers + +------+ + | Care Applications Sales Consultant Name | Role | Phone | + [...] | | | | | [place], [place] [address] | | | | | | [phone] | | | +--------+ + + + [...] [address] | | | | | | [place] [address] | | | | | | [phone] | | | | | | | | +--------+ + + + + | 11/30/ | Initial | Nephrology | Pavel Veras MD | | | 2018 | consult | | [address] | | | | | | [address] [place] | | | | | | [address] | | | | | | | | +--------+ + + + + | 01/11/ | Office | Cardiology | Sher Max, | | | 2018 | Visit | | [address] | | | | | | [place], | | | | | | [place] [address] | | | | | | [phone] | | | | | | | [...] | | | | | 4 (severe) ([facility]) | | + +--------+ + + | CBC W/Auto Diff (Reflex to | Routin | CKD (chronic | Expected: | | Manual) | e | kidney disease), | 11/23/2018, Expires: | | | | stage IV (HCC) | 10/29/2019 | | | | Anemia of chronic | | | | | renal failure, stage | | | | | 4 (severe) ([facility]) | | + +--------+ + + | [...] | | | | | 4 (severe) ([facility]) | | + +--------+ + + as of this encounter Visit Diagnoses + + | Diagnosis | + + | CKD (chronic kidney disease), stage IV (HCC) - Primary | + + | Chronic kidney disease, Stage IV (severe) | + + | Anemia of chronic renal failure, stage 4 (severe) (HCC) | + +"
--- OUTSIDE RECORDS SUMMARY | ~2018-11-15 | XMS | Encounter Summary ---
Demographics + + + | Address | [address] | | | [place] [address] | + + + | Home Phone | | + + + | Preferred Language | Unknown | + + + | Marital Status | | + + + | Confucianist Affiliation | 1027 | + + + | Race | Unknown | + + + | Ethnic Group | Unknown | + + + Author + + + | Author | [facility] | + + + | Organization | [facility] | + + + | Address | Unknown | + + + | Phone | Unavailable | + + + Support + + + + + | Name | Relationship | Address | Phone | + + + + + | Libby Soriano | ECON | [address] | | | | | [place], [place] | | | | | [address] | | + + + + + Care Team Providers + +------+ + | Care Wastewater Treatment Plant Attendant Name | Role | Phone | + [...] | | Required | | hypertension | ELECTRIC ENGINE MECHANIC [address] | [address] | | | | | Type [address] | [address] | [address] | | | | | diabetes | [address] | [place], [place] | | | | | mellitus | [place], [place] | [address] Phone: | | | | | with stage 3 | [address] | [phone] | | | | | chronic | Phone: | Fax: | | | | | kidney | [phone] | [phone] | | | | | disease, | Fax: | | | | | | without | [phone] | | | | | | long-term [...] | | | Way [address] | [place] [address] | replacement), | | | | [place] [address] | [phone] | bioprosthetic | | | | [phone] | | (Primary Dx); Aortic | | [...] you fasting labs to be done at [facility] in 2 weeks I have ordered your [...] patient of who is her for primary pmo manager, and last seen by him 1 . Today, I reviewed all previous documentation available to me in electronic medical tameka rd and from external sources She has a history of aortic stenosis with placement of TAVR at [facility] in [place] 04/06/2018, and still followed by [place] [facility] clinic, paroxysmal atrial fibrillation, hypertension, severe [...] care with sleep specialist, Dr. Quintero in [facility], and is now wearing her CPAP consistently [...] Exercises w ith and tolerates. Lives in [place]. 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, [...] disease, without long-term current use of insulin ([facility]) 9. Stage 3 chronic kidney disease (HCC) 10. Obstructive sleep apnea syndrome 11. COPD, moderate ([facility]) 12. Encounter for monitoring diuretic therapy [...] past surgical history. Problem list. DANTE Lau [facility] Cardiology 10/08/2018in this encounter Plan of [...] [address] | | | | | | [place] [address] | | | | | | [phone] | | | | | | | | +--------+ + + + + | 11/30/ | Initial | Nephrology | Pavel Veras MD | | | 2019 | consult | | [address] | | | | | | [address] [facility] | | | | | | [address] | | | | | | | | +--------+ + + + + | 01/11/ | Office | Cardiology | Sher Max, | | | 2019 | Visit | | MD [address] | | | | | | [place], | | | | | | [place] [address] | | | | | | [phone] | | | | | | | [...] | | | | use of insulin ([facility]) | | | | | Stage [...] fibrillation | | | | | | ([facility]) New onset | | | | [...] | | | | | | insulin ([facility]) Stage | | | | | [...] + + + + | Calculated R [place] | 117 | degrees | [facility] | + + + + + | Calculated T [place] | 32 | degrees | [facility] E[facility] | + + + + + | Diagnosis | Please refer to | | [facility] E[facility] | | | Providers office visit | | | | | note for Providers | | | | | Interpretation.Confirmed | | | | | by [facility] [place] Read Only, | | | | | [facility] Vincent (502), | | | | | sound editor Edmundo Mace | | | | | (645) on 10/08/2018 | | | | | 4:25:33 PM | | | + + + + + + + + + + | Performing | Address | City/State/Zipcode | Phone Number | | Organization | | | | + + + + + | [facility] | [address] | [place] [address] | | + + + + + [...]
--- OUTSIDE RECORDS SUMMARY | ~2018-11-15 | XMS | Encounter Summary ---
Demographics + + + | Address | [address] | | | [place] [address] | + + + | Home Phone | | + + + | Preferred Language | Unknown | + + + | Marital Status | | + + + | Baptism Affiliation | 1027 | + + + | Race | Unknown | + + + | Ethnic Group | Unknown | + + + Author + + + | Author | [facility] | + + + | Organization | [facility] [employer] [employer] | + + + | Address | Unknown | + + + | Phone | Unavailable | + + + Support + + + + + | Name | Relationship | Address | Phone | + + + + + | Libby Soriano | ECON | [address] | | | | | [place], [place] | | | | | [address] | | + + + + + Care Team Providers + +------+ + | Care Guest House Manager Name | Role | Phone | [...] + | 10/13/ | Documentati | [facility] | Pepe, Cheryl Castillo, MA | Other ([place] | | 2019 | on Only | Card[facility] [place] | | Sleep Report and PFT | | | | [address] [facility] [address] | | 08/08/2018) | | | | [address] | | | | | | [place] [address] | | | | | | [phone] | | | +--------+ + + + [...] | | | | | | [place] [address] | | | | | | [phone] | | | | | | | | +--------+ + + + + | 11/30/ | Initial | Nephrology | Pavel Veras MD | | | 2019 | consult | | [address] | | | | | | [address] [place] | | | | | | [id number] | | | | | | | | +--------+ + + + + | 01/11/ | Office | Cardiology | Sher Max, | | | 2019 | Visit | | [address] | | | | | | [place], | | | | | | [place] [address] | | | | | | [phone] | | | | | | | | +--------+ + + + + as of this encounter Visit Diagnoses Not on filein this encounter"
--- OUTSIDE RECORDS SUMMARY | ~2018-11-15 | XMS | Encounter Summary ---
Demographics + + + | Address | [address] | | | [place] [address] | + + + | Home Phone [...] + + | Author | [facility] | + + + | Organization | [facility] [employer] [facility] | + + + | Address | Unknown | + + + | Phone | Unavailable | + + + Support + + + + + | Name | Relationship | Address | Phone | + + + + + | Libby Soriano | ECON | [address] | | | | | [place], [place] | | | | | [address] | | + + + + + Care Team Providers + +------+ + | Care Site Manager Name | Role | Phone | [...] + | 10/27/ | Documentati | [facility] | Cheryl Cantu MA | Labs Only ([facility] | | 2019 | on Only | Kasia Garibay | | Labs 10/22/2018) | | | | [address] [facility] [address] | | | | | | [address] | | | | | | [place] [address] | | | | | | [phone] | | | +--------+ + + + [...] | | | | | | [address] | | | | | | [place] [address] | | | | | | [phone] | | | | | | | | +--------+ + + + + | 11/30/ | Initial | Nephrology | Pavel Veras MD | | | 2019 | consult | | [address] | | | | | | [address] [place] | | | | | | [address] | | | | | | | | +--------+ + + + + | 01/11/ | Office | Cardiology | Sher Max, | | | 2019 | Visit | | [address] | | | | | | [place] | | | | | [place] [address] | | | | | | [phone] | | | | | | | | +--------+ + + + + as of this encounter Visit Diagnoses Not on filein this encounter"
--- OUTSIDE RECORDS SUMMARY | ~2018-11-15 | XMS | Encounter Summary ---
Demographics + + + | Address | [address] | | | [place] [address] | + + + | Home Phone | | + + + | Preferred Language | Unknown | + + + | Marital Status | | + + + | Restorationist Affiliation | 1027 | + + + | Race | Unknown | + + + | Ethnic Group | Unknown | + + + Author + + + | Author | [facility] | + + + | Organization | [facility] | + + + | Address | Unknown | + + + | Phone | Unavailable | + + + Support + + + + + | Name | Relationship | Address | Phone | + + + + + | Libby Soriano | ECON | [address] | | | | | [place], [place] | | | | | [address] | | + + + + + Care Team Providers + +------+ + | Care Concrete Pavement Installer Name | Role | Phone | [...] + | 10/27/ | Documentati | [facility] | Cheryl Cantu MA | Labs Only ([facility]giopath | | 2019 | on Only | Kasia Garibay | | Labs 10/22/2018) | | | | [address] [facility] [address] | | | | | | [address] | | | | | | [place] [address] | | | | | | [phone] | | | +--------+ + + + [...] | | | | | | [place] [address] | | | | | | [phone] | | | | | | | | +--------+ + + + + | 11/30/ | Initial | Nephrology | Pavel Veras MD | | | 2019 | consult | | [address] | | | | | | [address] [place] | | | | | | [address] | | | | | | | | +--------+ + + + + | 01/11/ | Office | Cardiology | Sher Max, | | | 2019 | Visit | | [address] | | | | | | [place] | | | | | [place] [address] | | | | | | [phone] | | | | | | | | +--------+ + + + + as of this encounter Visit Diagnoses Not on filein this encounter"
--- OUTSIDE RECORDS SUMMARY | ~2018-11-15 | XMS | Clinical Summary ---
Demographics + + + | Address | [address] | | | [place] [address] | + + + | Home Phone [...] + | Libby Soriano | ECON | [address] | | | | | [place], [place] | | | | | [address] | | + + + + + Care Team Providers + +------+ + | Care Steeping Press Operator Name | Role | Phone | [...] on file. For more information, please contact:[facility] [place] [address]"
--- OUTSIDE RECORDS SUMMARY | ~2018-11-15 | XMS | Encounter Summary ---
Demographics + + + | Address | [address] | | | [place] [address] | + + + | Home Phone | | + + + | Preferred Language | Unknown | + + + | Marital Status | | + + + | Worship Affiliation | 1027 | + + + | Race | Unknown | + + + | Ethnic Group | Unknown | + + + Author + + + | Author | [facility] | + + + | Organization | [facility] [employer] | + + + | Address | Unknown | + + + | Phone | Unavailable | + + + Support + + + + + | Name | Relationship | Address | Phone | + + + + + | Libby Soriano | ECON | [address] | | | | | [place], [place] | | | | | [address] | | + + + + + Care Team Providers + +------+ + | Care Cosmetologist Apprentice Name | Role | Phone | + [...] | [address] | [address] [place], [place] | Maryann) | | | | [place] [address] | [address] | | | | | [phone] | | | +--------+ + + + [...] F | | | | | | [place] [address] | | | | | | [phone] | | | | | | | | +--------+ + + + + | 11/30/ | Initial | Nephrology | Pavel Veras MD | | | 2019 | consult | | [address] | | | | | | [address] [place], [place] | | | | | | [id number] | | | | | | | | +--------+ + + + + | 01/11/ | Office | Cardiology | Sher Max, | | | 2019 | Visit | | MD [address] | | | | | | [place], | | | | | | [place] [address] | | | | | | [phone] | | | | | | | | +--------+ + + + + as of this encounter Visit Diagnoses Not on filein this encounter"
--- OUTSIDE RECORDS SUMMARY | ~2018-11-15 | XMS | Clinical Summary ---
Demographics + + + | Address | [address] | | | [place] [address] | + + + | Home Phone | | + + + | Preferred Language | Unknown | + + + | Marital Status | | + + + | Denominational Affiliation | 1027 | + + + | Race | Unknown | + + + | Ethnic Group | Unknown | + + + Author + + + | Author | [facility] | + + + | Organization | [facility] [employer] | + + + | Address | Unknown | + + + | Phone | Unavailable | + + + Support + + + + + | Name | Relationship | Address | Phone | + + + + + | Libby Soriano | ECON | [address] | | | | | [place], [place] | | | | | [address] | | + + + + + Care Team Providers + +------+ + | Care Steward/Stewardess Dining Room Name | Role | Phone | + [...] moderate | | | | | | ([facility]) | +--------+ + + + [...] | | | | | [place] [address] | | | | | | [phone] | | | | | | | | +--------+ + + + + | 11/30/ | Initial | | Pavel Veras MD | | | 2019 | consult | | [address] | | | | | | [address] [place] | | | | | | [address] | | | | | | | | +--------+ + + + + | 01/11/ | Office | | Sher Max, | | | 2019 | Visit | | MD [address] | | | | | | [place], | | | | | | [place] [address] | | | | | | [phone] | | | | | | | [...] fibrillation | | | | | | ([facility]) New onset | | | | | | left bundle branch | | | | | | block (LBBB) | | | | | | Moderate to severe | | | | | | pulmonary | | | | | | hypertension ([facility]) | | | | | [...] | | | | | | insulin ([facility]) Stage | | | | | | 3 chronic kidney | | | | | | disease ([facility]) | | | | | [...] + + + + | Calculated R Modena | 117 | degrees | [facility] EKG | + + + + + | Calculated T Modena | 33 | degrees | [facility] EKG | + + + + + | Diagnosis | Please refer to | | [facility] EKG | | | Providers office visit | | | | | note for Providers | | | | | Interpretation.Confirmed | | | | | by [facility] Read Only, | | | | | [facility] ([id number]), | | | | | magazine editor Edmundo Mace | | | | | ([id number]) on 10/26/2018 | | | | | 11:20:45 AM | | | + + + + + + + + + + | Performing | Address | City/State/Zipcode | Phone Number | | Organization | | | | + + + + + | [facility] | [address] | [facility] [place] [address] | | + + + + + [...] +------+-------+ + | MEDICARE | MEDICA | [id number] | | | [address] | | | RE | | | | [place] [address] | | | IP-OP | | | | | + +--------+ +------+-------+ + | UNITED HEALTHCARE | UNITED | [id number] | | | | | | | [...] | Self [birth year] Home: | [address] | | | ver[place]o | | 1945 | [phone] [place] | | | marin | | | 2018 | [phone] | + +--------+ +--------+ + +
--- OUTSIDE RECORDS SUMMARY | ~2018-11-15 | XMS | Encounter Summary ---
Demographics + + + | Address | [address] | | | [place] [address] | + + + | Home Phone | | + + + | Preferred Language | Unknown | + + + | Marital Status | | + + + | Holiness Affiliation | 1027 | + + + | Race | Unknown | + + + | Ethnic Group | Unknown | + + + Author + + + | Author | [facility] | + + + | Organization | [facility] [employer] | + + + | Address | Unknown | + + + | Phone | Unavailable | + + + Support + + + + + | Name | Relationship | Address | Phone | + + + + + | Libby Soriano | ECON | [address] | | | | | [place], [place] | | | | | [address] | | + + + + + Care Team Providers + +------+ + | Care Supplier Quality Name | Role | Phone | + [...] | [address] | [address] [place], [place] | Maryann) | | | | [place] [address] | [address] | | | | | [phone] | | | +--------+ + + + [...] F | | | | | | [place] [address] | | | | | | [phone] | | | | | | | | +--------+ + + + + | 11/30/ | Initial | Nephrology | Pavel Veras MD | | | 2019 | consult | | [address] | | | | | | [address] [place], [place] | | | | | | [phone] | | | | | | | | +--------+ + + + + | 01/11/ | Office | Cardiology | Sher Max, | | | 2019 | Visit | | MD [address] | | | | | | [place], | | | | | | [place] [address] | | | | | | [phone] | | | | | | | | +--------+ + + + + as of this encounter Visit Diagnoses Not on filein this encounter"
[2018-11-15] MEDS ORDERED: ELIQUIS5 M1 PO (21:34)
[2018-11-15] MEDS ORDERED: CARTIA XT120 MG PO (21:36)
[2018-11-15] MEDS ORDERED: HYDRALAZINE HCL10 MG PO (21:36)
[2018-11-15] MEDS ORDERED: COZAAR100 MG PO (21:37)
[2018-11-15] MEDS ORDERED: GLUCOPHAGE500 MG PO (21:37)
[2018-11-15] MEDS ORDERED: DEMADEX10 MG PO (21:38)
[2018-11-15] MEDS ORDERED: VITAMIN C500 M1 PO (21:38)
[2018-11-15] MEDS ORDERED: RANITIDINE HCL300 M1 PO (21:38)
[2018-11-15] MEDS ORDERED: ZYRTEC10 MG PO (21:39)
[2018-11-15] MEDS ORDERED: VITAMIN D1000 UNIT PO (21:39)
[2018-11-15] MEDS ORDERED: ASPIRIN81 MG PO (21:39)
[2018-11-15] MEDS ORDERED: B-12 DOTS500 MCG PO (21:40)
[2018-11-15] MEDS ORDERED: FERROUS SULFAT324 MG PO (21:40)
--- NOTE | 2018-11-16 00:10 | NUR ---
Patient arrived to unit via stretcher, slid over with LINA Sorto and LINA Ly. Patient is alert and oriented, reports feeling mild SOB, SpO2 94% on room air, RR 19 to 20, crackles noted in lower lung wade bilaterally. HR and BP WNL, peripheral pulses well felt in all extremities, 3+ edema noted in BLE, generalized edema in upper extremities. Bowel tones are active, abdomen is tender upon palpation, denies feeling nausea. Jackson present, draining dilute yellow urine. Skin grossly intact. IV site WNL, saline locked. Has no needs at this time, denies pain. Call light within reach, daughter at bedside.
--- NOTE | 2018-11-16 02:10 | NUR ---
Patient is restful with eyes closed, breathing is even and unlabored, vitals WNL, wearing home CPAP. Jackson continues to have dilute urine. Call light within reach.
--- NOTE | 2018-11-16 03:00 | NUR ---
Patient restful with eyes closed, breathing is unlabored, remains on CPAP, vitals WNL, continues to put out dilute urine with corbett. Call light within reach.
--- NOTE | 2018-11-16 04:19 | NUR ---
Patient remains restful, assessment done, no acute changes from previous. Vitals WNL, denies needs at this time. Jackson continues to drain dilute urine. Call light within reach.
--- NOTE | 2018-11-16 06:00 | NUR ---
Patient remains restful, denies needs at this time, vitals remain WNL, continues to have dilute urine output with corbett. Call light within reach.
--- NOTE | 2018-11-16 08:20 | NUR ---
PATIENT IS ALERT AND ORIENTED. PATIENT STATES SHE IS GENERALLY NOT A MORNING PERSON AND DOES NOT EAT UNTIL NOON. PATIENT ATE A CUP OF COTTAGE CHEESE AND A CUP OF BLUEBERRIES. PATIENT IS PLEASANT AND COOPERATIVE. PATIENT DENIES ANY SHORTNESS OF BREATH OR PAIN AT THIS TIME. PATIENT DENIES ANY NUMBNESS OR TINGLING. PATIENT IS SITTING UPRIGHT IN BED TALKING 0N THE PHONE WITH HER DAUGHTER.
--- NOTE | 2018-11-16 09:01 | NUR ---
PATIENT O2 SAT DECLINED TO 86% ON ROOM AIR WHILE SLEEPING. PATIENT WAS WOKEN UP AND ENCOURAGED TO WEAR CPAP WHILE SLEEPING. PATIENT DECLINED AT FIRST BUT WAS PERSUADED. PATIENT'S O2 SATURATION IS NOW AT 94% WHILE WEARING CPAP. PATIENT PATIENT IS RESTING COMFORTABLE WITH CALL LIGHT WITHIN REACH.
--- NOTE | 2018-11-16 09:12 | NUR ---
HOLDING LASIX 40MG AT THIS TIME, DUE TO PT LEVINE CATHETER IS CLAMPED FOR A US TEST THAT IS TO TAKE PLACE THIS MORNING AROUND 9AM. PT IS TOLERATING THIS CLAMPING WELL SO FAR. CURRENTLY PT IS TALKING ON THE PHONE.
--- NOTE | 2018-11-16 09:44 | NUR ---
US HERE A TTHIS TIME TO COMPLETE TEST.
--- NOTE | 2018-11-16 09:55 | NUR ---
PATIENT HAD ULTRASOUND ON KIDNEY'S AND BLADDER BOTH PRE AND POST VOID. PATIENT TOLERATED WELL AND HAS NO FURTHER REQUESTS OR NEEDS AT THIS TIME. PATIENT'S LEVINE IS UNCLAMPED AND SEEMS TO BE WORKING PROPERLY. PATIENT IS RESTING IN BED.
--- NOTE | 2018-11-16 10:17 | NUR ---
PATIENT TOOK OFF CPAP WHILE HAVING ULTRASOUND DONE ON KIDNEYS AND BLADDER. PATIENT TOLERATED WELL BUT BEGAN DESATING AGAIN SHE FELL ASLEEP. PATIENT PUT BACK ON CPAP AND NOW HAS O2 SATURATION AT 95%. PATIENT DECLINED LUNCH ORDER AND IS SLEEPING IN BED WITH CALL LIGHT IN REACH.
--- NOTE | 2018-11-16 10:34 | NUR ---
DR. WOLF WENT IN TO SEE PATIENT BUT PATIENT WAS RESTING COMFORTABLY WITH CPAP IN PLACE. WILL CONTACT DR. WOLF WHEN PATIENT IS AWAKE.
--- NOTE | 2018-11-16 12:28 | NUR ---
PATIENT IS AWAKE AND SPOKE WITH DR. WOLF ABOUT CURRENT ILLNESS AND CARE PLAN. PATIENT DECLINED BEING MOVED TO CHAIR TO EAT LUNCH. PATIENT ORDERED A SALAD AND CHICKEN BREAST FOR LUNCH. PATIENT IS SITTING UP IN BED WITH CALL LIGHT WITHIN REACH.
--- NOTE | 2018-11-16 13:51 | NUR ---
PT EDUCATIONS GIVEN A TTHIS TIME, PT IS CURRENTLY READING THE INFORMATION. PT ATE LUNCH AND DID WELL WITH IT, BUT C/O THE CHICKEN WAS DRY.
--- NOTE | 2018-11-16 14:36 | NUR ---
PT WAS ASLEEP INBED, ENCOURAGE TO USE CPAP WHEN SLEEPING SPO2 DECREASES WHEN NOT WEARING CPAP. PT SPO2 DECREASED TO 86% AND DID NOT WANT TO WEAR HER PERSONAL. O2 PLACED VIA NC AT 2L'S WHICH INCREASED HER SPO2 TO 97%.
--- NOTE | 2018-11-16 14:57 | NUR ---
PT SON INTO SEE HER AT THIS TIME.
--- NOTE | 2018-11-16 15:21 | NUR ---
Medications reconciled with pharmacy records, PCP chart notes ans patient interview. Recently, due to decreased renal function, apixaban, losartan and torsemide doses have been cut in half. Metformin was discontinued entirely, for now
--- NOTE | 2018-11-16 15:30 | NUR ---
I & O'S COMPLETED AT THIS TIME. PT CONTIOUES TO VISIT WITH FAMILY.
--- NOTE | 2018-11-16 16:25 | NUR ---
PATIENT IS SITTING UPRIGHT IN BED COMMUNICATING WITH FAMILY IN THE ROOM. PATIENT DENIES SOB OR PAIN. PATIENT IS ON 2L O2 BECAUSE PATIENT WAS FALLING ASLEEP WITHOUT WEARING CPAP MACHINE. PATIENT'S O2 SATURATION LEVELS CURRENTLY AT 100%
--- NOTE | 2018-11-16 17:44 | NUR ---
PATIENT O2 SATURATIONS AT 99%. RESPIRATORY THERAPY DECREASED O2 RATE TO 1L VIA NASAL CANNULA. PATIENT TOLERATED WELL AND CURRENT O2 SATURATION LEVELS AT 99%. PATIENT COMMUNICATING WITH FAMILY IN ROOM.
--- NOTE | 2018-11-16 18:05 | NUR ---
THIS INFORMATION SECURITY ARCHITECT AGREES WITH ALL THE CHARTING THAT STUDENT NURSE BILL FROM [facility] HAS DONE ON THIS CLIENT.
--- NOTE | 2018-11-16 18:06 | NUR ---
PT HAS NOT WANTED TO GET OUT OF BED TODAY AND OR UP TO THE CHAIR. PT STATES" I HAVE BEEN SHORT TIRED AND SOB THAT IT FEELS GOOD TO JUST BE IN BED". ENCOURAGE PT TO GET UP FOR DINNER, BUT FAMILY WAS AT THE BEDSIDE AND PT DID NOT WANT THEM TO LEAVE AT THIS TIME. PT HAS HAD GOOD RESPONSE FROM THE LASIX THAT SHE HAS RECEIVED TODAY. AND HAS BEEN DOING WELL WITH HER FLUID RESTRUCTIONS. 18:08 PT CURRENTLY HAS DINNER ON HER BEDSIDE AND FAMILY IN THE ROOM.
--- NOTE | 2018-11-16 19:30 | NUR ---
SHIFT ASSESSMENT WAS RECEIVED FROM SN YULISSA. PT SITING UP IN BED, OCCASIONALLY DOZING TO SLEEP. 1L NC IN PLACE. REFILLED PT'S WATER PER REQUEST. JULIANNA PATENT. IV SL. CALL LIGHT WITHIN REACH.
--- NOTE | 2018-11-16 20:21 | EKG ---
[facility] [address] [place], [place] [address] Signed Atrial fibrillation Nonspecific intraventricular block Possible Lateral infarct , age undetermined Abnormal ECG No previous ECGs available Confirmed by WENDY WOLF MD ([id number]) on 11/16/2018 8:21:01 PM Electronically Signed By: WENDY WOLF MD 11/16/182020 PATIENT NAME: DIMA GUIDO MARISSA Electrocardiogram DATE OF : 43 PHYSICIAN: WENDY WOLF MD REPORT #: [id number] REPORT IS CONFIDENTIAL AND NOT TO BE RELEASED WITHOUT AUTHORIZATION
--- NOTE | 2018-11-16 20:37 | NUR ---
ASSESSMENT COMPLETED. PT SLIGHTLY DROWSY, BUT WAKES EASILY AND IS ORIENTED. LUNGS DIM IN BASES, NO CRACKLES AUSCULTATED AT THIS TIME, 1L O2 VIA NC REMAINS IN PLACE. HR REMAINS IRREGULAR, RATE 60-70. EVENING MEDICATIONS GIVEN- SEE EMAR. IV SL, PATENT. JULIANNA PATENT, CATH CARE DONE. 4+EDEMA PRESENT IN BLE, GENERALIZED EDEMA ALSO PRESENT. HEEL PROTECTORS IN PLACE. REDNESS/BLISTERS ALSO NOTED TO BLE. CALL LIGHT WITHIN REACH.
--- NOTE | 2018-11-16 23:06 | NUR ---
PT SLEEPING, NO APPARENT DISTRESS. RESPIRATIONS EVEN AND UNLABORED, :20, SPO2:96% ON 1L. HR:72.
--- NOTE | 2018-11-17 00:38 | NUR ---
ASSESSMENT COMPLETED, PT WAKES EASILY WHEN SPOKEN TO. DENIES PAIN. LUNGS REMAIN CLEAR/DIM, 1L O2 VIA NC IN PLACE. OFFERED TO PLACE PT ON HER CPAP, PT REFUSES AT THIS TIME. NO DESATURATIONS HAVE BEEN OBSERVED. NO OTHER CHANGES FROM PREVIOUS ASSESSMENT. CALL LIGHT REMAINS WITHIN REACH.
--- NOTE | 2018-11-17 04:26 | NUR ---
PT SLEEPING, WOKE WHILE I WAS IN ROOM. LUNGS REMAIN CLEAR, DIM IN BASES, 1L O2 VIA NC IN PLACE. HR IREGULAR, RATE 60-70'S. BOWEL TONES ACTIVE. LEVINE PATENT, DILUTE URINE. CALL LIGHT WITHIN REACH.
--- NOTE | 2018-11-17 06:44 | NUR ---
PT CONTINUES TO SLEEP, NO APPARENT DISTRESS. RR:17, SPO2:96% ON 1L, HR:75. WILL ALLOW FOR REST AT THIS TIME.
--- NOTE | 2018-11-17 07:30 | NUR ---
REPORT RECIEVED. PATIENT IS ASLEEP IN BED. NO DISTRESS NOTED.
--- NOTE | 2018-11-17 07:30 | NUR ---
[facility] pt RESTING WITH EYES CLOSED, RESPIRATIONS REGULAR AND UNLABORED. WHITEBOARD UPDATED.
--- NOTE | 2018-11-17 08:00 | NUR ---
OUT OF BED TO CHAIR. TRANSFERS WELL WITH LITTLE ASSIST. TALKED WITH PATIENT ABOUT PLAN OF CARE FOR DAY, IS UNDERSTANDING. DENEIS PAIN.
--- NOTE | 2018-11-17 08:40 | NUR ---
TOOK BREAKFAST WELL. SITTING IN CHAIR, LEGS ELEVATED.
--- NOTE | 2018-11-17 09:04 | NUR ---
TRAY CLEARED, pt ATE OATMEAL AND YOGURT, USED A SMALL AMOUNT OF MILK.
--- NOTE | 2018-11-17 09:33 | NUR ---
LAB IN ROOM FOR TYPE AND CROSS
--- NOTE | 2018-11-17 09:58 | NUR ---
ROUNDED ON pt. MOVED PERSONAL AFFECTS WITHIN REACH. CALL LIGHT WITHIN REACH. NO REQUESTS AT THIS TIME.
--- NOTE | 2018-11-17 10:00 | NUR ---
MODIFIED SPONGE BATH GIVEN. REMAINS IN CHAIR.
--- NOTE | 2018-11-17 10:46 | NUR ---
MD IN ROOM. pt SITTING IN CHAIR WITH LEGS ELEVATED. WINDOW CURTAIN OPEN. PERSONAL AFFECTS WITH REACH. CALL LIGHT WITHIN REACH.
--- NOTE | 2018-11-17 11:45 | NUR ---
UNIT 1 OF 2 STARTED. pt REPORTED FEELING "CHILLED AND SLEEPY". WARM BLANKET PROVIDED, TEMPERATURE RECHECKED, SAME PRIOR TO INFUSION. THIS RN IN ROOM DURING FIRST 15 MINUTES OF INFUSION. pt DENIES SYMPTOMS OF REACTION. 15 MINUTES VITALS DONE NO REQUESTS AT THIS TIME. CALL LIGHT WITHIN REACH.
--- NOTE | 2018-11-17 12:00 | NUR ---
ASSESSMENT DONE. pt RESTING IN CHAIR, BLOOD INFUSING. IV PATENT. MEDICATION GIVEN (SEE MAR). pt VERBALIZED UNDERSTANDING OF MEDICATION REASON AND SIDE EFFECTS. NO CHANGES FROM PRIOR ASSESSMENT. CALL LIGHT WITHIN REACH.
--- NOTE | 2018-11-17 12:15 | NUR ---
O2 SAT <88%. pt RESTING WITH EYES CLOSED, RESPIRATIONS REGULAR AND UNLABORED. 1L O2 VIA NC PLACED, 99% O2 SAT. CALL LIGHT WITHIN REACH. LUNCH ON BEDSIDE TABLE, pt ASKED TO REST PRIOR TO EATING.
--- NOTE | 2018-11-17 13:10 | NUR ---
MEDICATION DUE. pt RESTING WITH EYES CLOSED, AWOKE BRIEFLY. RESPIRATIONS REGULAR AND UNLABORED. MEDICATION GIVEN (SEE MAR). BLOOD INFUSING. CALL LIGHT WITHIN REACH.
--- NOTE | 2018-11-17 14:00 | NUR ---
MEDICATION GIVEN (SEE MAR). ASSISTED pt BACK TO BED. LEVINE EMPTIED. CALL LIGHT WITHIN REACH. NO REQUESTS AT THIS TIME.
--- NOTE | 2018-11-17 14:53 | NUR ---
UNIT 2 OF 2 STARTED. pt LAYING IN BED. NO COMPLAINTS AT THIS TIME. VSS. pt PICKING AT LUNCH. THIS RN IN ROOM FOR FIRST 15 MINUTES OF BLOOD ADMINISTRATION. NO SIGNS OR SYMPTOMS OF REACTION. BLOOD PROGRAMMED TO INFUSE OVER 4 HOURS PER ORDERS NO REQUESTS AT THIS TIME. CALL LIGHT WITHIN REACH.
--- NOTE | 2018-11-17 16:05 | NUR ---
ASSESSMENT DONE. LEVINE EMPTIED. pt DENIED PAIN. BLOOD INFUSING. pt IN BED, ALERT AND AWAKE. FAMILY AT BEDSIDE. CALL LIGHT WITHIN REACH.
--- NOTE | 2018-11-17 17:03 | NUR ---
PATIENT TRANSFERED TO [facility] FROM [facility], REPORT FROM [facility]. BLOOD TRANSUFSING, PATIENT SITTING UP IN RECLINER. FULL BODY ASSESMENT DONE. FOOD TRAY TO ROOM. PATIENT APPEARS ALERT AND ORIENTED. CALL LIGHT WITHIN REACH.
--- NOTE | 2018-11-17 17:20 | NUR ---
THIS RN ASSUMING CARE OF PT. REPORT RECEIVED FROM LINA LYNNE. THIS RN TO ROOM TO CHECK ON PT. PT UP TO CHAIR. PT DENIES PAIN AND NAUSEA. UNIT OF BLOOD ADMINISTRATION COMPLETE. VITALS TAKEN. PIV SALINE LOCKED AT THIS TIME. ASSESSMENT DONE. PT REPORTS CONSTIPATION AND REQUESTS "SOMETHING EASY LIKE A SOFTENER." NIO ORDER PLACED FOR BOWEL MEDICATIONS. PT EATING DINNER UP IN CHAIR. NO REQUESTS OR COMPLAINTS AT THIS TIME. CALL LIGHT WITHIN REACH.
--- NOTE | 2018-11-17 18:45 | NUR ---
PT TRANSFERED FROM CCU TODAY FOR CHF EXACERBATION AND HYPONATREMIA. PT TOLERATING 1500ML FLUID RESTRICTION AND HEART HEALTHY DIET. CPAP AT BEDSIDE. PT TOELRATING ROOM AIR WHEN AWAKE AND USES 1L O2 BY NC WHILE NAPPING. FOELY CATHETER, QUANTITY SUFFICIENT. 2 UNITS OF BLOOD GIVEN THIS SHIFT. DAILY WEIGHT PT USEING CALL LIGHT APPROPRATLY.
--- NOTE | 2018-11-17 19:20 | NUR ---
REPORT RECEIVED FROM DAY SHIFT RN. PT SITTING IN RECLINER VISITING WITH FAMILY. PT ALERT AND ORIENTED. NO REQUESTS AT THIS TIME. CALL LIGHT IN REACH.
--- NOTE | 2018-11-17 21:10 | NUR ---
ASSESSMENT COMPLETE. ASSISTED PT TO BED, PT STEADY ON HER FEET, NO C/O DIZZINESS. NO REQUESTS AT THIS TIME, CALL LIGHT IN REACH.
--- NOTE | 2018-11-18 00:56 | NUR ---
PT RESTING IN BED WITH EYES CLOSED. RR EVEN AND UNLABORED. CPAP IN PLACE. CALL LIGHT IN REACH.
--- NOTE | 2018-11-18 03:13 | NUR ---
ASSESSMENT COMPLETE. VS CHECKED PER PT REQUEST, O2 SATS 92% ON RA. WARM BLANKET PROVIDED. CALL LIGHT IN REACH.
--- NOTE | 2018-11-18 05:16 | NUR ---
PT HAS RESTED WELL THROUGHOUT THE NIGHT. PT WORE HOME CPAP MACHINE. [facility] LEVINE IN [facility] DRAINING SUFFICIENT AMOUNTS OF CLEAR YELLOW URINE. 1+ PITTING EDEMA IN BILAT LE. REDNESS/BLISTERY SKIN NOTED ON RIGHT BANKS. PT COMPLIANT WITH 1500 ML FLUID RESTRICTION.
--- NOTE | 2018-11-18 05:49 | NUR ---
PATIENTS VITALS TAKEN AND RECORDED. PATIENTS LEVINE EMPTIED AND LEVINE CARE COMPLETED. PATIENTS OUPUT IS QS. PATIENTS DW TAKEN AND RECORDED. PATIENT IS BACK IN BED RESTING. PATIENT DENIES ANY NEEDS AT THIS TIME. CALL LIGHT IN REACH.
--- NOTE | 2018-11-18 06:08 | NUR ---
PATIENTS VITALS TAKEN AND RECORDED. PATIENTS ORTHOSTATICS COMPLETED AND RECORDED. PATIENT THEN ASSISTED TO THE RESTROOM A SBA. PATIENT IS STEADY ON HER FEET. PATIENT DENIES BEING DIZZY OR LIGHT HEADED WITH AMBULATION OR DURING ORTHOSTATICS. PATIENT IS NOW UP IN RECLINER. CHAIR ALARM IN PLACE. PATIENT DENIES ANY NEEDS AT THIS TIME. CALL LIGHT AND BELONGINGS IN REACH.
--- NOTE | 2018-11-18 08:30 | NUR ---
PT IS SITTING UP IN RECLINER FOR BREAKFAST, STATES SHE IS BREATHING MUCH EASIER TODAY AND EDEMA HAS IMPROVED IN FEET, PT STATES PAIN IN FEET IS ALMOST GONE NOW WHEN SHE AMBULATES. PT ATE 200% OF BREAKFAST THIS MORNING AND DOING A GOOD JOB FOLLOWING FLUID RESTRICTION. SBA INTO BATHROOM USING CANE FOR LG BM. WANTS TO REMAIN SITTING UP IN RECLINER. CALL LIGHT IN EASYR EACH.
--- NOTE | 2018-11-18 10:34 | NUR ---
PT REMAINS SITTING IN RECLINER, TALKING WITH FAMILY ON CELL PHONE, DENIES ANY NEEDS. STATES SHE WILL BE READY FOR SHOWER AFTER LUNCH.
--- NOTE | 2018-11-18 11:26 | NUR ---
Certified Heart Failure Nurse Notes: Diagnosis: HF exacerbation and hyponatremia Silk Screen Layout Drafter: Maryann CUELLO PCP: Billie Date of echocardiogram - not on record, patient states since surgery Wade Inhibitor or ARB for LVSD prescribed If either an WADE or an ARB is not ordered: Yes Beta Gianni ordered -NA Admit Wt.: 225lb Today's Wt.: 213 lb Admit BNP: Social support system: Lives with spouse, daughter, and grandchild Weight monitoring: Scale present in home. Identifies how to weigh daily/ identifies when to notify PCP. States that she was not doing weights recently since she thought it only applied to the immediate postop period. Symptom management: Addressed monitoring and reporting changes in weight or symptoms utilizing Zones form. Transportation mode: daughter drives Diet: Patient cooks all the home meals. Reports not feeling like cooking and is not always timely. Spouse does not cook and daughter works outside the home. She states she does read labels for portion size and salt. They use to eat fast food frequently but has ceased that habit. Usual physical activity: No routine exercise. Stays in her room most of the time. Since retired she does not go out of the house or have outside interests. Feels it is difficult to go anywhere with stairs due to her knee discomfort and she does not attend granddaughter's ball games since it is too cold for her outside. Medication routine: Denies missed. Has been counseled on minimizing/avoiding use of NSAIDs Tobacco:NA CPAP adherent. Advanced directive: Not discussed at this initial visit Screenings completed today will be faxed to PCP: PHQ-9 score 12 Mini-Cog score 5 (a cut point of <3 has been validated for dementia screening) Recommendations prior to discharge: Document ambulation oxygen saturations prior to discharge Absence of orthostatic hypotension. Discharge weight less than admit weight Barriers to self-care include: sedentary lifestyle Follow-up plans: Patient states has f/u with [facility] on 11/25/18 and renal physician on 11/30/18 This service will call patient post DC. Patient may benefit from outpatient HF education session with family members in attendance. Teaching materials given today: [facility] My Action Plan Living Well with HF book, low sodium grocery list, Zones magnet, [facility] contact information Low Sodium Shopping list
--- NOTE | 2018-11-18 13:00 | NUR ---
ATE 100% OF LUNCH. AGREED TO TAKE SHOWER AT THIS TIME. IN GOOD SPIRITS.
--- NOTE | 2018-11-18 19:04 | NUR ---
IN ROOM FOR REPORT, PT IS AWAKE IN BED. SHE DENIES NEEDS AT THIS TIME. CALL LIGHT IS WITHIN REACH.
--- NOTE | 2018-11-18 19:13 | NUR ---
PT IN TO DO EVAL. WALKED IN HALLWAY WITH CANE AND SBA. LEVINE WITH LIGHT COLORED URINE, TAPED SECURELY. ENC PT TO ELEVATE FEET, 2-3+ EDEMA. HAS BEEN SITTING WITH FEET DOWN IN RECLINER. AGREED TO LAY DOWN FOR A BIT AND ELEVATE FEET. DENIES FURTHER NEEDS.
--- NOTE | 2018-11-18 21:45 | NUR ---
IN ROOM TO ASSESS PT AND ADMINISTER MEDICATIONS. PT DENIES PAIN BUT STATES HER LEGS HURT WHEN PRESSED ON. PT REPORTS EDEMA IN LEGS IS WORSE AT THIS TIME BECAUSE SHE SAT IN THE CHAIR A LOT TODAY. SHE IS IN BED AT THIS TIME WITH LEGS ELEVATED. SHE HAS HAD MULTIPLE LOOSE BMS TODAY SO SHE REFUSED MIRALAX AND SENNAKOT. SHE HAS FRESH WATER AT BEDSIDE AND CPAP SET UP READY FOR PT WHEN SHE WANTS TO GO TO SLEEP. SHE DENIES NEEDS AT THIS TIME. CALL LIGHT IS WITHIN REACH.
--- NOTE | 2018-11-18 23:03 | NUR ---
PT IS AWAKE IN BED, USING HER CELL PHONE. SHE DENIES NEEDS AT THIS TIME. CALL LIGHT IS WITHIN REACH.
--- NOTE | 2018-11-19 00:26 | NUR ---
PT IS RESTING WITH EYES CLOSED, RESPIRATIONS ARE EVEN AND NONLABORED ON CPAP. CALL LIGHT IS WITHIN REACH.
--- NOTE | 2018-11-19 02:01 | NUR ---
PT IS RESTING WITH EYES CLOSED, RESPIRATIONS ARE EVEN AND NONLABORED ON CPAP. CALL LIGHT IS WITHIN REACH.
--- NOTE | 2018-11-19 03:57 | NUR ---
PT IS RESTING WITH EYES CLOSED, RR IS EVEN AND NONLABORED ON CPOX. CALL LIGHT IS WITHIN REACH.
--- NOTE | 2018-11-19 05:50 | NUR ---
WOKE PT TO GET VS & I&O ENTERED WITH HELP OF ANSLEY CARO. WE ALSO WEIGHED HER AND SHE LOST JUST OVER 6LBS. PT DENIES FURTHER NEEDS AT THIS TIME. CALL LIGHT IS CLOSE.
--- NOTE | 2018-11-19 07:05 | NUR ---
BEDSIDE HANDOFF REPORT RECEIVED FROM [facility] SPECIALIST RN. PT RESTING IN BED, VISITOR AT BEDSIDE. PT PROVIDED WITH 300 ML OF FRESH ICE WATER. PT DENIES OTHER NEEDS AT THIS TIME.
--- NOTE | 2018-11-19 08:02 | NUR ---
PT ASSISTED TO CHAIR FOR BREAKFAST. PT ALERT/ORIENTED. PT ON ROOM AIR, LUNG SOUNDS CLEAR IN UPPER LOBES, CRACKLES TO BASES, DENIES SOB. PT DENIES PAIN. IV FLUSHED, PATENT, IV LASIX GIVEN. PT DENIES NAUSEA, BOWLE TONES ACTIVE, TOLERATING DIET, REFUSED BOWEL MEDS. PT WITH LEVINE CATH DRAINING, YELLOW URINE. PT WITH EDEMA TO BLE, 2+, PT REPORT EDEMA IMPROVING BUT NOT AT BASELINE YET. CMS INTACT. DISCUSSED PLAN OF CARE FOR THE DAY, QUESTIONS ANSEWED. PT DENIES OTHER NEEDS AT THIS TIME.
--- NOTE | 2018-11-19 11:37 | NUR ---
PT SITTING IN CHAIR READING CARDIAC MATERIAL RECIEVED FROM LINA HASSAN. PT DID SAY THAT SHE WILL HAVE TO START COOKING AGAIN AND STOP EATING SO MUCH OF THE FAST FOOD SHE APPARENTLY HAS BEEN EATING. SHE MENTIONED SHE DOESN'T GET OUT MUCH AND IS NOT A VERY GOOD NEIGHBOR. HER DAUGHTER CAME IN-THEY SEEM TO BE BE CLOSE-PT MENTIONED THAT SHE HAS BEEN AFTER HER TO TAKE BETTER CARE OF HER SELF. GAVE ENCOURAGEMENT, WILL FOLLOW NEEDED
--- NOTE | 2018-11-19 11:49 | NUR ---
PATIENT REFUSED SHOWER THIS MORNING BECAUSE SHE GOT A GOOD SHOWER YESTERDAY. WILL CHANGE BED LINENS.
--- NOTE | 2018-11-19 13:30 | NUR ---
PT SITTING IN CHAIR. PT ON ROOM AIR, LUNG SOUNDS CLEAR WITH CRACKLES TO RIGHT BASE, DENIES SOB. IV LASIX GIVEN, LEVINE CATH IN PLACE, DRAINING QS. EDEMA TO BLE UNCHANGED 2+. PT RPOVIDED WITH FRESH WATER. PT DENIES OTHER NEEDS AT THIS TIME.
--- NOTE | 2018-11-19 14:55 | NUR ---
PT RESTING IN BED. VSS. PT RATING PAIN 2/10. PT ON ROOM AIR, LUNG SOUNDS CLEAR, O2 SATS 99%. PT TOLERATED CLEAR LIQUID, DENIES NAUSEA. PT SBA TO BATHROOM, VOIDED. PT STATES INCREASED PAIN WITH MOVEMENT, DISCUSSED PAIN MEDICATIONS, PT REQUESTING MOTRIN AFTER DINNER. PT DENIES OTHER NEEDS AT THIS TIME.
[2018-11-19] MEDS ORDERED: ELIQUIS5 MG PO ×2 (16:35)
[2018-11-19] MEDS ORDERED: CARTIA XT120 MG PO (16:35)
[2018-11-19] MEDS ORDERED: TORSEMIDE20 MG PO ×2 (16:37→16:39)
[2018-11-19] MEDS ORDERED: POTASSIUM CHLO10 ME2 PO (16:40)
--- NOTE | 2018-11-19 16:40 | NUR ---
MD TO BEDSIDE. VERBAL ORDER TO REMOVED LEVINE CATH, COMPLETED. PLAN FOR DISCHARGE IN THE MORNING AFTER PT RECEIVES MORNING MEDICATIONS, PT GIVEN APPROXIMATE DC TIME OF 1000. PT DENIES OTHER NEEDS AT THIS TIME.
--- NOTE | 2018-11-19 18:02 | NUR ---
PT ON ROOM AIR, LUNG SOUNDS WITH CRACKLES TO RIGHT BASE. PT WALKED IN CABRALES WITH P.T., WAS ABLE TO WALK SHORT DISTANCE, DESAT WITH ACTIVITY. LEVINE CATH RMEOVED THIS EVENING, DUE TO VOID BY 2300. PT GIVEN IV LASIX X2, URINE OUTPUT QS. PT SBA WITH CANE, CALLS APPROPRIATELY. IV SALINE LOCKED. PLAN FOR DISCHARGE IN AM.
--- NOTE | 2018-11-19 20:00 | NUR ---
charge nurse rounding note:, visiting with family, no c/o pain or distress. call light and fluids at bedside.
--- NOTE | 2018-11-19 20:30 | NUR ---
PATIENT HAVING NO PAIN. ON ROOM AIR. VS DONE AND STABLE. REFUSED BOWEL MEDS,BUT OTHER EVENING MEDS GIVEN. LUNGS CLEAR EXCEPT FOR SOME CRACKLES IN THE RIGHT LOWER LOBE.
--- NOTE | 2018-11-19 22:34 | NUR ---
PATIENT RESTING QUIETLY IN BED EYES CLOSED RESPIRATIONS EVEN AND REGULAR.
--- NOTE | 2018-11-20 00:30 | NUR ---
PATIENT RESTING QUIETLY,EYES CLOSED, SUPINE, RESPIRATIONS 16 ON HER CPAP MACHINE.
--- NOTE | 2018-11-20 02:28 | NUR ---
PATIENT RESTING QUIETLY SUPINE, EYES CLOSED, ON HER CPAP AT A RESP RATE OF 16.
--- NOTE | 2018-11-20 04:16 | NUR ---
PATIEWNT JUST UP TO THE BATHROOM AND WEIGHT WAS TAKEN FOR THE MORNING. PATIENT BACK IN BED. PATIENT STILL AWAKE AND NOT ON HER CPAP AT THIS TIME.
--- NOTE | 2018-11-20 05:12 | NUR ---
PATIENT RESTED WELL MOST OF THE NIGHT ON HER CPAP, BUT IS AWAKE AT THIS TIME AFTER USING THE BATHROOM. NO C/O PAIN. REFUSED BOWEL MEDS FOR THE EVENING. PATIENT HAS HAD NO PAIN CLEAR IN THE UPPER LUNG LOBES, FINE CRACKLES LLL, CRACKLES RLL. BOWEL TONES ACTIVE. VS STABLE.
--- NOTE | 2018-11-20 06:27 | NUR ---
VITALS AND I&OS DONE AND CHARTED. FRESH ICE WATER GIVEN. BEDSIDE TABLE AND CALL LIGHT IN REACH. PT NEEDS NOTHING MORE AT THIS TIME.
--- NOTE | 2018-11-20 07:20 | NUR ---
PATIENT SITTING UP IN BED. PATIENT'S FACE AND HANDS CLEANED. CALL LIGHT WITHIN REACH. NO OTHER NEEDS AT THIS TIME
--- NOTE | 2018-11-20 07:34 | NUR ---
RECIEVED BEDSIDE REPORT FROM LINA SHIPMAN. PT AWAKE AND ALERT IN BED. PT HAS VOIDED COPIOUS AMOUNTS ALREADY, DESPITE FLUID RESTRICTION. PT REPORTS NO PAIN AT THIS TIME.
--- NOTE | 2018-11-20 09:44 | NUR ---
PATIENT RESTING IN CHAIR. DAUGHTER AND RN IN ROOM. VITAL SIGNS AND I&O DONE. ICE WATER GIVEN. CALL LIGHT WITHIN REACH. NO OTHER NEEDS AT THIS TIME
--- NOTE | 2018-11-20 10:44 | NUR ---
PATIENT SITTING UP IN CHAIR. DAUGHTER IN ROOM. FINAL VITAL SIGNS WERE OBTAINED PRIOR TO DISCHARGE FROM THE UNIT.
--- NOTE | 2018-11-20 11:39 | NUR ---
PT DISCHARGE TEACHING COMPLETED. DISCUSSED CHF MAGNET, WHEN TO CALL THE MD, DIET, FOLLOW UP, MEDICATIONS. PT WAS ABLE TO TEACH BACK THE CHF MAGNET, TO INCLUDE INFORMATION ON DAILY WEIGHTS, DIETS, AND MEDICATION. IV REMOVED, PT TO HOLD PRESSURE. PT DRESSED. VITALS TAKEN. PT TAKEN TO VEHICLE IN WHEELCHAIR.
--- NOTE | 2018-11-23 09:29 | NUR ---
Heart failure discharge follow up phone call completed. Patient reports doing daily exercises as prescribed by PT prior to DC. DC weight 205 lb. Home weight 200 and 202 lb since DC. Daily weight monitoring confirmed with teach back. Symptoms to report reviewed with patient. She is following low sodium diet as instructed but feels it is hard to do. Reinforced avoiding processed foods and limiting items such as bottled condiments. States her family made her dinner last night; it was made from scratch without added salt. She is concerned that due to budget issues she may have a difficult time following meal plans plus she is the only one in family that does daily cooking. I will contact [facility] to assist patient with resources. Has medications and list of changes reviewed with patient today. She states meds were very well explained and she has written instructions. Dr. Montesinos called her yesterday. Will attend [facility] [facility] visit with Barbara Wolf today at 1400. Next appointment with renal is November 30, and with PCP Dr. Wise is December 08. Patient declined offer to come in for nurse education visit. She agrees to call this service PRN.
== END 2018-11-20 11:00 | disposition home or self-care (01) | DRG 291 ==
LOC: ED 21:20 → CCU 23:46 → ED 23:46 → CCU 11-16 00:04 → MS 11-17 16:50
PROVIDERS: ADMIT Internal Medicine
PROC: 30233N1 Transfusion of Nonautologous Red Blood Cells into Peripheral Vein, Percutaneous Approach (ICD-10-PCS; principal; 2018-11-17)
DX: I13.0 Hypertensive heart and chronic kidney disease with heart failure and stage 1 through stage 4 chronic kidney disease, or unspecified chronic kidney disease (principal); I50.33 Acute on chronic diastolic (congestive) heart failure; E87.1 Hypo-osmolality and hyponatremia; N17.9 Acute kidney failure, unspecified; N18.9 Chronic kidney disease, unspecified; E66.9 Obesity, unspecified; D63.1 Anemia in chronic kidney disease; E11.22 Type 2 diabetes mellitus with diabetic chronic kidney disease; G47.33 Obstructive sleep apnea (adult) (pediatric); I48.2 Chronic atrial fibrillation; I27.20 Pulmonary hypertension, unspecified; K21.9 Gastro-esophageal reflux disease without esophagitis; E87.5 Hyperkalemia; R77.8 Other specified abnormalities of plasma proteins; R74.8 Abnormal levels of other serum enzymes; Z95.2 Presence of prosthetic heart valve; Z88.8 Allergy status to other drugs, medicaments and biological substances; Z79.84 Long term (current) use of oral hypoglycemic drugs; Z79.02 Long term (current) use of antithrombotics/antiplatelets; Z79.82 Long term (current) use of aspirin; Z79.899 Other long term (current) drug therapy; Z68.36 Body mass index [BMI] 36.0-36.9, adult
CPT/HCPCS: 36415; 36430; 51702; 71045; 76770; 80048; 80053; 82306; 82570; 82607; 82728; 82746; 83036; 83540; 83735; 83880; 83930; 83935; 84075; 84080; 84300; 84466; 84484; 85025; 85045; 86850; 86900; 86901; 86920; 93005; 93010; 94760; 97110; 97116; 97162; 97530; 99285-25; P9016

== ENCOUNTER 2019-04-13 04:11 | Emergency (ER) | payer MEDICARE ==
[~2019-04-13] VITALS: Ht 160 cm; Wt 93.0 kg
--- OUTSIDE RECORDS SUMMARY | ~2019-04-13 | XMS | Clinical Summary ---
Demographics + + + | Address | [address] | | | [place] [address] | + + + | Home Phone | | + + + | Preferred Language | Unknown | + + + | Marital Status | | + + + | Buddhist Affiliation | 1027 | + + + | Race | Unknown | + + + | Ethnic Group | Unknown | + + + Author + + + | Author | [facility] (Historical as of | | | 02-27-19) | + + + | Organization | [facility] (Historical as of | | | 02-27-19) | + + + | Address | Unknown | + + + | Phone | Unavailable | + + + Support + + + + + | Name | Relationship | Address | Phone | + + + + + | Libby Soriano | ECON | [address] | + | | | | [place] | | | | | [address] | | + + + + + Care Team Providers + +------+ + | Care Chisel Worker Name | Role | Phone | + +------+ + | Rajiv Wise MD | PP | | + +------+ + Allergies + + + + + + | Active Allergy | Reactions | Severity | Noted | Comments | | | | | Date | | + + + + + + | Beta Adrenergic | Shortness of Breath | High | 06/24/20 | Swelling in throat | | Blockers | | | 17 | and lungs, fluid in | | | | | | lungs | + + + + + + | Glipizide | Other (See Comments) | Medium | 12/01/19 | Unknown reaction | | | | | 19 | | + + + + + + | Lisinopril | Cough | Low | 12/01/19 | | | | | | 19 | | + + + + + + | Metoprolol | Other (See Comments) | Medium | 12/01/19 | unknown reaction | | | | | 19 | | + + + + + + Current Medications + + +--------+---------+------+------+-------+ | Prescription | Sig. | Disp. | Refills | Star | End | Statu | | | | | | t | Date | s | | | | | | Date | | | + + +--------+---------+------+------+-------+ | cyanocobalamin | Take 500 mcg by | | | | | Activ | | (VITAMIN B-12) 500 | mouth daily. | | | | | e | | MCG tablet | | | | | | | + + +--------+---------+------+------+-------+ | Cholecalciferol | Take 1,000 Units by | | | | | Activ | | 1000 units capsule | mouth daily. | | | | | e | + + +--------+---------+------+------+-------+ | ferrous sulfate, | Take 65 mg of iron | | | | | Activ | | 65 FE, 324 (65 Fe) | by mouth 2 (two) | | | | | e | | MG EC tablet | times daily with | | | | | | | | meals. | | | | | | + + +--------+---------+------+------+-------+ | ascorbic acid | Take 500 mg by mouth | | | | | Activ | | (VITAMIN C) 500 MG | daily. | | | | | e | | tablet | | | | | | | + + +--------+---------+------+------+-------+ | ranitidine | Take 300 mg by mouth | | | | | Activ | | (ZANTAC) 300 MG | nightly. | | | | | e | | tablet | | | | | | | + + +--------+---------+------+------+-------+ | aspirin 81 MG | Take 81 mg by mouth | | | | | Activ | | tablet | daily. | | | | | e | + + +--------+---------+------+------+-------+ | apixaban (ELIQUIS) | Take 0.5 tablets by | 180 | 3 | 03/2 | | Activ | | 5 MG tablet | mouth 2 (two) times | tablet | | 8/20 | | e | | | daily. | | | 19 | | | + + +--------+---------+------+------+-------+ | torsemide | Take 20 mg by mouth | | | | | Activ | | (DEMADEX) 20 MG | 2 (two) times daily. | | | | | e | | tablet | | | | | | | + + +--------+---------+------+------+-------+ | loratadine | Take 10 mg by mouth | | | | | Activ | | (CLARITIN) 10 MG | daily. | | | | | e | | tablet | | | | | | | + + +--------+---------+------+------+-------+ | fluticasone | 1 spray by Each Nare | | | | | Activ | | (FLONASE) 50 MCG/ACT | route daily. | | | | | e | | nasal | | | | | | | + + +--------+---------+------+------+-------+ | potassium chloride | Take 1 tablet by | 90 | 3 | 07/2 | | Activ | | (DAVID MARTINEZ) 20 | mouth daily. | tablet | | 2/20 | | e | | MEQ tablet | | | | 19 | | | + + +--------+---------+------+------+-------+ | allopurinol | Take 1 tablet by | 30 | 11 | 07/2 | 07/2 | Activ | | (ZYLOPRIM) 100 MG | mouth daily. | tablet | | 2/20 | 1/20 | e | | tablet | | | | 19 | 20 | | + + +--------+---------+------+------+-------+ | nebivolol | Take 1 tablet by | 30 | 11 | 08/1 | | Activ | | (BYSTOLIC) 5 MG | mouth daily. | tablet | | 2/20 | | e | | tablet | | | | 19 | | | + + +--------+---------+------+------+-------+ Active Problems + + + | Problem | Noted Date | + + + | Iron deficiency | 02/01/2019 | + + + | Acute kidney injury superimposed on chronic kidney disease (HCC) | 11/30/2018 | + + + | Bilateral leg edema | 11/30/2018 | + + + | Hyponatremia | 11/30/2018 | + + + | Electrolyte imbalance risk | 11/30/2018 | + + + | Hyperuricemia | 11/30/2018 | + + + | Anemia of chronic disease | 11/30/2018 | + + + | Chronic heart failure with preserved ejection fraction (HCC) | 11/30/2018 | + + + | Alkaline phosphatase elevation | 11/23/2018 | + + + + + | Overview: chronic alkaline phosphatase elevation due to liver | | | + + + + + | COPD, moderate (HCC) | 10/08/2018 | + + + | Encounter for monitoring diuretic therapy | 10/08/2018 | + + + | S/p TAVR (transcatheter aortic valve replacement), bioprosthetic | 04/06/2018 | + + + + + | Overview: 23mm Leon Malathi S3 | + + + + + | New onset left bundle branch block (LBBB) | 04/06/2018 | + + + + + | Overview: post-TAVR | + + + + + | Chronic kidney disease | 06/27/2017 | + + + + + | Overview: Stage III, GFR 48, BUN 31, creatinine 1.12 | + + + + + | Aortic stenosis, severe | 06/24/2017 | + + + + + | Overview: Echo: ALVARO 0.8 cm , peak/mean gradient 54.3/29.9 | | mmHg, peak velocity 3.7 m/s | + + + + + | Atrial fibrillation (HCC) | 06/24/2017 | + + + + + | Overview: CHADS2 VASc 5, overall AFib burden 0.14% on 4 week | | event monitor (07/10/17) | + + + + + | Mild mitral stenosis | 06/24/2017 | + + + + + | Overview: peak/mean gradients 12.4/4 mmHg, MVA not measured, | + + + + + | Type 2 diabetes mellitus (HCC) | 07/14/2009 | + + + + + | Overview: no complications | + + + + + | Hypertension | 07/14/2009 | + + + | Sleep apnea syndrome | | + + + + + | Overview: on CPAP + O2 | + + + +---+ | Morbid obesity with BMI of 40.0-44.9, adult (HCC) | | + +---+ | Moderate to severe pulmonary hypertension (HCC) | | + +---+ + + | Overview: severe, RVSP 68.3 - 73.3 mm Hg on echo 06/24/17 | + + Encounters +--------+ + + + + | Date | Type | Specialty | Care Team | Description | +--------+ + + + + | 02/25/ | Telephone | | Fidencio, | | | 2019 | | | JASBIR Ly | | +--------+ + + + + | 02/22/ | Office | | Sher Max, | Aortic stenosis, | | 2019 | Visit | | MD | severe (Primary Dx); | | | | | | S/p TAVR | | | | | | (transcatheter | | | | | | aortic valve | | | | | | replacement), | | | | | | bioprosthetic; Mild | | | | | | mitral stenosis; | | | | | | Moderate to severe | | | | | | pulmonary | | | | | | hypertension (HCC); | | | | | | Paroxysmal atrial | | | | | | fibrillation (HCC); | | | | | | New onset left | | | | | | bundle branch block | | | | | | (LBBB); Obstructive | | | | | | sleep apnea | | | | | | syndrome; Stage 3 | | | | | | chronic kidney | | | | | | disease (HCC); Type | | | | | | 2 diabetes mellitus | | | | | | with stage 3 chronic | | | | | | kidney disease, | | | | | | without long-term | | | | | | current use of | | | | | | insulin (HCC) | +--------+ + + + + | 02/02/ | Documentati | | Fidencio, | Other (B/P Log | | 2018 | on Only | | JASBIR Ly | 01/14/19-02/01/19) | +--------+ + + + + | 02/01/ | Office | | Pavel Veras MD | Acute kidney injury | | 2018 | Visit | | | superimposed on | | | | | | chronic kidney | | | | | | disease (HCC) | | | | | | (Primary Dx); Anemia | | | | | | of chronic disease; | | | | | | Bilateral leg | | | | | | edema; Electrolyte | | | | | | imbalance risk; | | | | | | Hyperuricemia; | | | | | | Encounter for | | | | | | monitoring diuretic | | | | | | therapy; Iron | | | | | | deficiency | +--------+ + + + + | 02/01/ | Telephone | | Fidencio, | | | 2018 | | | JASBIR Ly | | +--------+ + + + + | 01/29/ | Documentati | | Fidencio, | Labs Only (01/28/19) | | 2018 | on Only | | JASBIR Ly | | +--------+ + + + + | 01/29/ | Orders Only | | Fidencio, | Essential | | 2018 | | | JASBIR Ly | hypertension; Stage | | | | | | 3 chronic kidney | | | | | | disease (HCC); | | | | | | Electrolyte | | | | | | imbalance risk; | | | | | | Anemia of chronic | | | | | | renal failure, stage | | | | | | 4 (severe) (HCC) | +--------+ + + + + from Last 3 Months Family History + + +------+ + | Medical History | Relation | Name | Comments | + + +------+ + | Alcohol abuse | Brother | | | + + +------+ + | Diabetes type II | Brother | | | + + +------+ + | Stroke | Brother | | | + + +------+ + | Diabetes type II | Brother | | | + + +------+ + | Diabetes type II | Brother | | | + + +------+ + | Cancer | Father | | leukemia | + + +------+ + | Diabetes type II | Father | | | + + +------+ + | Diabetes type II | Mother | | | + + +------+ + | Hypertension | Mother | | | + + +------+ + | Kidney disease | Mother | | | + + +------+ + | Diabetes type II | Sister | | | + + +------+ + | Kidney disease | Sister | | | + + +------+ + | Diabetes type II | Sister | | | + + +------+ + | Kidney disease | Sister | | | + + +------+ + + +------+ + + | Relation | Name | Status | Comments | + +------+ + + | Brother | | | in childhood, fire | + +------+ + + | Brother | | | head trauma | | | | (Age | | | | | 78) | | + +------+ + + | Brother | | | complications from a mining accident | | | | (Age | | | | | 30) | | + +------+ + + | Brother | | Alive | | + +------+ + + | Brother | | Alive | | + +------+ + + | Daughter | | Alive | | + +------+ + + | Father | | | leukemia | | | | (Age | | | | | 75) | | + +------+ + + | Mother | | | complications of diabetes, renal failure | | | | (Age | | | | | 61) | | + +------+ + + | Sister | | | | | | | (Age | | | | | 70) | | + +------+ + + | Sister | | | in childhood, unknown cause | + +------+ + + | Sister | | | in childhood, unknown cause | + +------+ + + | Sister | | | | + +------+ + + | Sister | | | | + +------+ + + | Son | | Alive | | + +------+ + + Social History + +-------+ +--------+------+ | Tobacco Use | Types | Packs/Day | Years | Date | | | | | Used | | + +-------+ +--------+------+ | Passive Smoke | | | | | | Exposure - Never | | | | | | Smoker | | | | | + +-------+ +--------+------+ + +---+---+---+ | Smokeless Tobacco: | | | | | Never Used | | | | + +---+---+---+ + + | Comments: not currently exposed to passive smoke | + + + + +---------+ + | Alcohol Use | Drinks/We | oz/Week | Comments | | | ek | | | + + +---------+ + | No | | | | + + +---------+ + + + + | Sex Assigned at | Date Recorded | | | | + + + | Not on file | | + + + Last Filed Vital Signs + + + + | Vital Sign | Reading | Time Taken | + + + + | Blood Pressure | 120/64 | 02/22/2019 12:54 PM PDT | + + + + | Pulse | 85 | 02/22/2019 12:54 PM PDT | + + + + | Temperature | 36.3 C (97.3 F) | 10/16/2017 2:59 PM PDT | + + + + | Respiratory Rate | 18 | 11/23/2018 2:15 PM PDT | + + + + | Oxygen Saturation | 97% | 02/22/2019 12:54 PM PDT | + + + + | Inhaled Oxygen | - | - | | Concentration | | | + + + + | Weight | 96 kg (211 lb 9.6 | 02/22/2019 12:54 PM PDT | | | oz) | | + + + + | Height | 157.5 cm (5' 2") | 02/22/2019 12:54 PM PDT | + + + + | Body Mass Index | 38.7 | 02/22/2019 12:54 PM PDT | + + + + Plan of Treatment +--------+---------+ + + + | Date | Type | Specialty | Care Team | Description | +--------+---------+ + + + | 04/19/ | Office | | Pavel Veras MD | | | 2019 | Visit | | [address] | | | | | | [address] [place], [place] | | | | | | [address] | | | | | | | | +--------+---------+ + + + + + + + + | Health Maintenance | Due Date | Last Done | Comments | + + + + + | Diabetic Eye Exam | | | | | | 4 | | | + + + + + | Diabetic Foot Exam | | | | | | 4 | | | + + + + + | Hemoglobin A1c | | | | | | 4 | | | + + + + + | Microalbumin | | | | | Screening | 4 | | | + + + + + | Vaccine: | | | | | Dtap/Tdap/Td (1 - | 3 | | | | Tdap) | | | | + + + + + | Breast Cancer | | | | | Screening | 4 | | | | (Mammogram) | | | | + + + + + | Colon Cancer | | | | | Screening | 4 | | | | (Colonoscopy) | | | | + + + + + | Vaccine: Zoster (1 | | | | | of 2) | 4 | | | + + + + + | DEXA SCAN SCREENING | | | | | | 9 | | | + + + + + | Vaccine: | | | | | Pneumococcal 65+ | 9 | | | | Low/Medium Risk (1 | | | | | of 2 - PCV13) | | | | + + + + + | Statin Therapy | | | | | (optimal intensity) | 7 | | | + + + + + | Vaccine: Influenza | | | | | (#1) | 9 | | | + + + + + Procedures + +--------+ + + + | Procedure Name | Priori | Date/Time | Associated Diagnosis | Comments | | | ty | | | | + +--------+ + + + | IRON AND TIBC | Routin | 01/28/2019 | | Results for this | | | e | 11:30 AM | | procedure are in the | | | | PDT | | results section. | + +--------+ + + + | FERRITIN | Routin | 01/28/2019 | Essential | Results for this | | | e | 11:30 AM | hypertension Stage | procedure are in the | | | | PDT | 3 chronic kidney | results section. | | | | | disease (HCC) | | | | | | Electrolyte | | | | | | imbalance risk | | | | | | Anemia of chronic | | | | | | renal failure, stage | | | | | | 4 (severe) (HCC) | | + +--------+ + + + | MAGNESIUM | Routin | 01/28/2019 | Essential | Results for this | | | e | 11:30 AM | hypertension Stage | procedure are in the | | | | PDT | 3 chronic kidney | results section. | | | | | disease (HCC) | | | | | | Electrolyte | | | | | | imbalance risk | | | | | | Anemia of chronic | | | | | | renal failure, stage | | | | | | 4 (severe) (HCC) | | + +--------+ + + + | RENAL FUNCTION PANEL | Routin | 01/28/2019 | Essential | Results for this | | | e | 11:30 AM | hypertension Stage | procedure are in the | | | | PDT | 3 chronic kidney | results section. | | | | | disease (HCC) | | | | | | Electrolyte | | | | | | imbalance risk | | | | | | Anemia of chronic | | | | | | renal failure, stage | | | | | | 4 (severe) (HCC) | | + +--------+ + + + | PTH INTACT NO | Routin | 01/28/2019 | Essential | Results for this | | CALCIUM | e | 11:30 AM | hypertension Stage | procedure are in the | | | | PDT | 3 chronic kidney | results section. | | | | | disease (HCC) | | | | | | Electrolyte | | | | | | imbalance risk | | | | | | Anemia of chronic | | | | | | renal failure, stage | | | | | | 4 (severe) (HCC) | | + +--------+ + + + from Last 3 Months Results Iron panel (01/28/2019 11:30 AM) + + + + + | Component | Value | Ref Range | Performed At | + + + + + | IRON | 39.89 | 37 - 160 | | + + + + + | IRON % SAT | 11.4 (A) | 20 - 55 | | + + + + + | TIBC | 350 | 245 - 400 | | + + + + + + + | Specimen | + + | Blood | + + PTH intact no calcium (01/28/2019 11:30 AM) + + + + + | Component | Value | Ref Range | Performed At | + + + + + | PTH INTACT NO | 103.3 (A) | 15 - 65 pg/mL | [facility] | | CALCIUM | | | LABORATORY | + + + + + + + | Specimen | + + | Blood | + + + + + + + | Performing | Address | City/State/Zipcode | Phone Number | | Organization | | | | + + + + + | [facility] | [address] | [place] [address] | [phone] | | LABORATORY | [address] | | | + + + + + Magnesium (01/28/2019 11:30 AM) + +-------+ + + | Component | Value | Ref Range | Performed At | + +-------+ + + | MAGNESIUM | 2.0 | 1.7 - 2.5 mg/dL | [facility] | | | | | LABORATORY | + +-------+ + + + + | Specimen | + + | Blood | + + + + + + + | Performing | Address | City/State/Zipcode | Phone Number | | Organization | | | | + + + + + | [facility] | [address] | [place] [address] | [phone] | | LABORATORY | [address] | | | + + + + + Ferritin (01/28/2019 11:30 AM) + +-------+ + + | Component | Value | Ref Range | Performed At | + +-------+ + + | FERRITIN | 140.4 | 13 - 150 ng/mL | [facility] | | | | | LABORATORY | + +-------+ + + + + | Specimen | + + | Blood | + + + + + + + | Performing | Address | City/State/Zipcode | Phone Number | | Organization | | | | + + + + + | [facility] | [address] | [place] [address] | [phone] | | LABORATORY | [address] | | | + + + + + Renal function panel (01/28/2019 11:30 AM) + + + + + | Component | Value | Ref Range | Performed At | + + + + + | GLUCOSE | 109 (A) | 70 - 100 mg/dL | [facility] | | | | | LABORATORY | + + + + + | BUN | 47 (A) | 6 - 23 mg/dL | [facility] | | | | | LABORATORY | + + + + + | CREATININE | 1.71 (A) | 0.70 - 1.18 mg/dL | [facility] | | | | | LABORATORY | + + + + + | PHOSPHORUS | 3.9 | 2.5 - 5.0 mg/dL | [facility] | | | | | LABORATORY | + + + + + | Albumin | 4.2 | 3.5 - 5.0 | [facility] | | | | | LABORATORY | + + + + + | SODIUM | 131 (A) | 132 - 143 mmol/L | [facility] | | | | | LABORATORY | + + + + + | POTASSIUM | 4.0 | 3.6 - 5.1 mmol/L | [facility] | | | | | LABORATORY | + + + + + | CHLORIDE | 88 (A) | 95 - 112 mmol/L | [facility] | | | | | LABORATORY | + + + + + | CO2 | 28 | 19 - 31 mmol/L | [facility] | | | | | LABORATORY | + + + + + | ANION GAP AGAP | 19.0 | 7 - 21 mmol/L | [facility] | | | | | LABORATORY | + + + + + | GFR MDRD Non Af Amer | | | [facility] | | | | | LABORATORY | + + + + + | Phosphorus,Inorganic | | | [facility] | | | | | LABORATORY | + + + + + | BUN/CREAT | 27.5 | 6.0 - 28.6 | [facility] | | | | | LABORATORY | + + + + + | CALCIUM | 9.4 | 8.5 - 10.3 mg/dL | [facility] | | | | | LABORATORY | + + + + + | EGFR | 29 (A) | 60 - 140 mg/dL | [facility] | | | | | LABORATORY | + + + + + + + | Specimen | + + | Blood | + + + + + + + | Performing | Address | City/State/Zipcode | Phone Number | | Organization | | | | + + + + + | [facility] | [address] | [place] [address] | [phone] | | LABORATORY | [address] | | | + + + + + from Last 3 Months Insurance + +--------+ +------+-------+ + | Payer | Benefi | Subscriber | Type | Phone | Address | | | t Plan | ID | | | | | | / | | | | | | | Group | | | | | + +--------+ +------+-------+ + | MEDICARE | MEDICA | [id number] | | | [address] | | | RE | | | | [place] [address] | | | IP-OP | | | | | + +--------+ +------+-------+ + | [employer] | UNITED | [id number] | | | | | | | | | | | | | HEALTH | | | | | | | CARE - | | | | | | | AARP | | | | | + +--------+ +------+-------+ + + +--------+ +--------+ + + | Guarantor Name | Accoun | Relation to | Date | Phone | Billing Address | | | t Type | Patient | of | | | | | | | | | | + +--------+ +--------+ + + | DIMA SORIANO | Person | Self [birth year] | Home: | [address] | | [place] | | 1945 | [phone] [place] | | | marin | | | 2018 | [phone] | + +--------+ +--------+ + +
--- OUTSIDE RECORDS SUMMARY | ~2019-04-13 | XMS | Encounter Summary ---
Demographics + + + | Address | [address] | | | [place] [address] | + + + | Home Phone | | + + + | Preferred Language | Unknown | + + + | Marital Status | | + + + | Amish Affiliation | 1027 | + + + | Race | Unknown | + + + | Ethnic Group | Unknown | + + + Author + + + | Author | [facility] | | | and [place] | + + + | Organization | [facility] | | | and [place] | + + + | Address | Unknown | + + + | Phone | Unavailable | + + + Support + + + + + | Name | Relationship | Address | Phone | + + + + + | Libby Soriano | ECON | [address] | | | | | [place] | | | | | [address] | | + + + + + Care Team Providers + +------+ + | Care Production Generalist Name | Role | Phone | + +------+ + | Rajiv Wise MD | PCP | | + +------+ + Encounter Details +--------+ + + + + | Date | Type | Department | Care Team | Description | +--------+ + + + + | 02/22/ | Orders Only | [facility] | Sher Max, | | | 2019 | | [facility] [place] | [address] | | | | | [address] | [place], | | | | | [place], [place] | [place] [address] | | | | | [address] | [phone] | | | | | [phone] | | | +--------+ + + + [...] recent travel history available. | + + documented as of this encounter Plan of Treatment +--------+---------+ + + + | Date | Type | Specialty | Care Team | Description | +--------+---------+ + + + | 04/19/ | Office | Nephrology | Pavel Veras MD | | | 2018 | Visit | | [address] | | | | | | [address] [place], [place] | | | | | | [address] | | | | | | | | +--------+---------+ + + + | 04/27/ | Office | Cardiology | Sher Max, | | | 2018 | Visit | | [address] | | | | | | [place], | | | | | | [place] [address] | | | | | | [phone] | | | | | | | | +--------+---------+ + + + documented as of this encounter Visit Diagnoses Not on filedocumented in this encounter"
--- OUTSIDE RECORDS SUMMARY | ~2019-04-13 | XMS | Encounter Summary ---
Demographics + + + | Address | [address] | | | [place] [address] | + + + | Home Phone | | + + + | Preferred Language | Unknown | + + + | Marital Status | | + + + | Adventism Affiliation | 1027 | + + + | Race | Unknown | + + + | Ethnic Group | Unknown | + + + Author + + + | Author | [facility] (Historical as of | | | 02-27-19) | + + + | Organization | [facility] (Historical as of | | | 02-27-19) | + + + | Address | Unknown | + + + | Phone | Unavailable | + + + Support + + + + + | Name | Relationship | Address | Phone | + + + + + | Libby Soriano | ECON | [address] | | | | | [place], [place] | | | | | [address] | | + + + + + Care Team Providers + +------+ + | Care Stone Product Fabricator Name | Role | Phone | + +------+ + | Rajiv Wise MD | PCP | | + +------+ + Reason for Visit +--------+ + | Reason | Comments | +--------+ + | Other | B/P Log 01/14/19-02/01/19 | +--------+ + Encounter Details +--------+ + + + + | Date | Type | Department | Care Team | Description | +--------+ + + + + | 02/02/ | Documentati | [facility] | Fidencio, | Aman (B/P Log | | 2019 | on Only | [place] [address] | [place] | 01/14/19-02/01/19) | | | | [address] | | | | | | [place] [address] | | | | | | [phone] | | | +--------+ + + + [...] | | | | | | [address] [place], [place] | | | | | | [address] | | | | | | | | +--------+---------+ + + + as of this encounter Visit Diagnoses Not on filein this encounter"
--- OUTSIDE RECORDS SUMMARY | ~2019-04-13 | XMS | Encounter Summary ---
Demographics + + + | Address | [address] | | | [place] [address] | + + + | Home Phone | | + + + | Preferred Language | Unknown | + + + | Marital Status | | + + + | Yarsanism Affiliation | 1027 | + + + | Race | Unknown | + + + | Ethnic Group | Unknown | + + + Author + + + | Author | [facility] (Historical as of | | | 02-27-19) | + + + | Organization | [facility] (Historical as of | | | 02-27-19) | + + + | Address | Unknown | + + + | Phone | Unavailable | + + + Support + + + + + | Name | Relationship | Address | Phone | + + + + + | Libby Soriano | ECON | [address] | | | | | [place] | | | | | [address] | | + + + + + Care Team Providers + +------+ + | Care Trust Vault Custodian Name | Role | Phone | + +------+ + | Rajiv Wise MD | PCP | | + +------+ + Reason for Visit + + + | Reason | Comments | + + + | Follow-up | 3 months | + + + Encounter Details +--------+---------+ + + + | Date | Type | Department | Care Team | Description | +--------+---------+ + + + | 02/22/ | Office | [facility] | Sher Max, | Aortic stenosis, | | 2018 | Visit | Cardiology Stephani | [address] | severe (Primary Dx); | | | | [address] | [place], | S/p TAVR | | | | [place] | [place] [address] | (transcatheter | | | | [address] | [phone] | aortic valve | | | | [phone] | | replacement), | | | | [...] | | | | insulin (HCC) | +--------+---------+ + + + Social [...] + + + + in this encounter Progress Notes Sher Max MD - 02/22/2019 1:00 PM PDTFormatting of this note may be different from the original. Subjective: Patient ID: Ángela Soriano is a 73 y.o. female. HPI The following portions of the patient's history were reviewed and updated as appropriate an d is available elsewhere in the record: allergies, current medications, past family history, past medical history, past social history, past surgical history and problem list. Mrs. Soriano, accompanied by her granddaughter, came to the office today for a follow-u p visit for her severe aortic stenosis, for which she underwent TAVR at [facility] in [place] 04/06/18, severe pulmonary hypertension, and increasing pedal edema. La summer, without beta blockers, which previously caused her to have pedal edema (although I am not sure that it really was not her valvular disease instead), she developed congestive heart failure, with significant increased weight, pedal edema up to her thighs, and dyspnea on exertion, but no orthopnea or PND. A chest x-ray 02/17/17 showed a slightly increased ove rall heart size, with mild-moderate heart failure, although without marcin pulmonary edema. Her BNP level was 288. She was started on diuretics, first chlorthalidone, then Lasix, then Demadex, and managed to lose 34 pounds. She has since regained 10 pounds, and has signific ant pedal edema. She was hospitalized at [facility] November for this, and I noted her BNP was only 153, sodium 119, potassium 5.8. Her renal insufficiency was worse. He is now on torsemide 40 mg twice daily, with 4+ pedal edema to the knees. Part of the problem may be hed Cardizem as this is a well-known side effect, and I stopped it today. I am rather sk eptical that her previous reactions to beta-blockers were really side effects from these med ications, and not due to her valve disease, and I will try her on Bystolic 5 mg daily to con trol her rate with her atrial fibrillation. I would prefer to avoid digoxin, due to her rober al insufficiency.She is on Eliquis 5 mg bid for paroxysmal atrial fibrillation, with a CHADS 2 VASc score of 5. She developed a left bundle branch block and first-degree AV block follo wing her TAVR surgery. I will most likely not be able to increase her Bystolic dose much hi gher, if she tolerates it at all, due to concern of worsening her conduction system disease. A Holter will be scheduled at her next appointment. She has no dizziness, lightheadedness or syncope, and was instructed to call if she develops any of these symptoms or if she has p veronica with the Bystolic. I will see her back for her next follow-up visit in [facility] 2 months. Review of Systems CONSTITUTIONAL: H/o Morbid Obesity. significant weight increase with her edema, had lost 3 4 lbs, gained 10 lbs over the last 3 months, denies recent fever, chills, night sweats, c/o significant fatigue NEUROLOGIC: No history of CVA, TIA, but has a h/o Migraines, usually ocular migraines now, no h/o seizures, syncope. No numbness, tingling, paresthesias, dizziness, lightheadedness. EYES: No amaurosis, diplopia, recent visual changes, macular degeneration or glaucoma, has secondary cataracts ENT: Mild hearing loss, denies tinnitus, epistaxis, no significant dysphagia ENDOCRINE: She has a history of Type II Diabetes mellitus. No history of thyroid disorders or other endocrine problems. No excessive hunger, thirst. PULMONARY/SLEEP: She has dyspnea on exertion, walking on flat ground 200 feet, denies orth opnea, paroxysmal nocturnal dyspnea. No history of asthma, emphysema. She has severe Obstr uctive Sleep Apnea, on CPAP + O2. CARDIOVASCULAR: Denies chest pain, pressure or discomfort. No history of CAD. No history of heart failure. She was found to have Atrial Fibrillation 06/24/17, CHADS2 VASc 5. She h as a history of cardiac arrhythmias. No palpitations. She has a history of a heart murmur, determined to be due to aortic sclerosis and 2010, but on an echo 06/24/17, was seen to have severe , mild MS, MR. She denies any history of rheumatic fever, but given her valvular disease, it is suspected. She has a history of essential Essential Hypertension, no signifi cant hyperlipidemia. She has had significant Pedal Edema, worse with beta blockers, no azul dication symptoms. No h/o an AAA. -- TAVR (04/06/18): 23mm Leon Malathi S3, complicated by CHF and a new LBBB -- Echo (post-TAVR 04/07/18): EF 64%, dilated RV with mild RV systolic dysfunction, 11 mmHg gradient across the TAVR, severe pulmonary hypertension, RVSP 88 mm Hg -- Carotid U/S (03/05/18): 1-15% ICA stenoses bilaterally -- Cardiac Cath (09/30/17): RA-14, PA-75/30, PCW-25-28, CO 7.6, no coronary artery disease, unable to cross the aortic valve -- 4 Week Event Monitor (07/10/17): Sinus rhythm, ave HR 70, range 30-103 bpm, a single 14 min run of Paroxysmal AFib was noted (burden 0.14%), 172 brief runs of PAT, 22 second run of WCT with irregular R-R intervals, possibly AFib with aberrant conduction -- Echo (06/24/17): EF 60-65%, moderate right ventricular enlargement with normal function. Severe , ALVARO 0.8 cm, peak/mean gradient 54.3/29.9 mmHg, peak velocity 3.7 m/s. Mild MS peak/mean gradients 12.4/4 mmHg, MVA not measured, mild MR, TR, PI, severe pulmonary hypert ension, RVSP 68.3-73.3 mmHg, moderate bi-AE -- Echo (11/22/09): EF 60-65%, normal RV size and function. Mild LAE, mild MR, trace TR, RV SP 28-33 mm hg -- Carotid U/S (11/22/09): Normal plaquing at the left internal carotid artery bulb, otherwi se neck vessels were widely patent -- Lipid panel (02/17/17): TC-197, LDL-103, HDL-78, TG-81 GASTROINTESTINAL: No recent abdominal pain, nausea, vomiting, has IBS, constipation is no longer so prevalent, has intermittent diarrhea. Denies PUD, melena, hematochezia, hepatitis. RENAL/: Stage III CKD. No dysuria, hematuria, urinary urgency, hesitancy. No chili maker di sorders. HEMATOLOGY/ONCOLOGY: No h/o bleeding disorders, DVT, PE. Denies easy bruisability or ble eding. She was found to have Anemia, H/H 9.4/30.0 on 02/17/17. She had 2 blood transfusion w ith her ventral hernia repair, reoperated due to bleeding. No history of cancer. MUSCULOSKELETAL: No myalgias, arthralgias. No history of rheumatologic or autoimmune dise ases. CUTANEOUS: No rashes, pruritus, lesions. PSYCHIATRIC: She has a history of Depression, Anxiety, denies other psychiatric problems. 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 Chronic kidney disease 06/27/2017 Stage III, GFR 48, BUN 31, creatinine 1.12 Congestive heart failure (HCC) Hypertension 2009 Mild mitral stenosis 06/24/2017 peak/mean gradients 12.4/4 mmHg, MVA not measured, Moderate to severe pulmonary hypertension (HCC) severe, RVSP 68.3 - 73.3 mm Hg on echo 06/24/17 Morbid obesity with BMI of 40.0-44.9, adult ([facility]) New onset left bundle branch block (LBBB) 04/06/2018 post-TAVR S/p TAVR (transcatheter aortic valve replacement), bioprosthetic 04/06/2018 23mm Leon Malathi S3 Sleep apnea syndrome on CPAP + O2 Type 2 diabetes mellitus (HCC) 2009 no complications Past Surgical History Procedure Laterality Date APPENDECTOMY CATARACT EXTRACTION SECTION CHOLECYSTECTOMY 2009 EYE SURGERY 1957 strabismus HERNIA REPAIR 2009 complicated by bleeding, needed reoperation, then revision Family History Problem Relation Age of Onset Diabetes type II Mother Kidney disease Mother Hypertension Mother Cancer Father leukemia Diabetes type II Father Kidney disease Sister Diabetes type II Sister Diabetes type II Brother Stroke Brother Alcohol abuse Brother Diabetes type II Brother Diabetes type II Brother Kidney disease Sister Diabetes type II Sister Social History Substance Use Topics Smoking status: Passive Smoke Exposure - Never Smoker Smokeless tobacco: Never Used Comment: not currently exposed to passive smoke Alcohol use No Allergies Allergen Reactions Beta Adrenergic Blockers Shortness of Breath Swelling in throat and lungs, fluid in lungs Glipizide Other (See Comments) Unknown reaction Metoprolol Other (See Comments) unknown reaction Lisinopril Cough Current Outpatient Prescriptions: allopurinol (ZYLOPRIM) 100 MG tablet, Take 1 tablet by mouth daily., Disp: 30 tablet, Rfl: 11 apixaban (ELIQUIS) 5 MG tablet, Take 0.5 tablets by mouth 2 (two) times daily. (Patien t taking differently: Take 5 mg by mouth 2 (two) times daily.), Disp: 180 tablet, Rfl: 3 ascorbic acid (VITAMIN C) 500 MG tablet, Take 500 mg by mouth daily., Disp: , Rfl: aspirin 81 MG tablet, Take 81 mg by mouth daily., Disp: , Rfl: Cholecalciferol 1000 units capsule, Take 1,000 Units by mouth daily., Disp: , Rfl: cyanocobalamin (VITAMIN B-12) 500 MCG tablet, Take 500 mcg by mouth daily., Disp: , Rf l: diltiazem (CARDIZEM LA) 120 MG 24 hr tablet, Take 1 tablet by mouth daily., Disp: 30 t ablet, Rfl: 11 ferrous sulfate, 65 FE, 324 (65 Fe) MG EC tablet, Take 65 mg of iron by mouth 2 (two) times daily with meals., Disp: , Rfl: fluticasone (FLONASE) 50 MCG/ACT nasal, 1 spray by Each Nare route daily., Disp: , Rfl : loratadine (CLARITIN) 10 MG tablet, Take 10 mg by mouth daily., Disp: , Rfl: potassium chloride (K-DUR,KLOR-CON) 20 MEQ tablet, Take 1 tablet by mouth daily., Disp : 90 tablet, Rfl: 3 ranitidine (ZANTAC) 300 MG tablet, Take 300 mg by mouth nightly., Disp: , Rfl: torsemide (DEMADEX) 20 MG tablet, Take 20 mg by mouth 2 (two) times daily., Disp: , Rf l: Objective: Physical Exam BP 120/64 (BP Location: Left upper arm, Patient Position: Sitting) | Pulse 85 | Ht 1.575 m (5' 2") | Wt 96 kg (211 lb 9.6 oz) | SpO2 97% | BMI 38.70 kg/m GENERAL: Morbidly obese. Well developed, well nourished elderly woman, in no di stress. Appears approximately stated age. HEENT: Normocephalic, atraumatic. EYES: Well-healed iridectomies. PERRL, sclerae anicteric, no xanthelsasmas MOUTH: Oral mucosae moist, dentition adequate, no lesions noted NECK: No JVD, lymphadenopathy, thyromegaly, with bilateral transmitted heart murmurs, bi lateral carotid bruits (right > left) vs transmitted murmur. Carotid pulses are 2+ bilatera lly LUNGS: Clear bilaterally, with no rales, rhonchi or wheezing noted, respirations unlabored HEART: Nonpalpable PMI, regular rate, irregularly irregular rhythm, S1 varied in intensity , S2 normal. 2/6 systolic crescendo decrescendo murmur throughout the precordium, radiating to both sides of the neck. No rubs or gallops noted. ABDOMEN: Obese. Soft, nontender, no organomegaly, masses or bruits. Bowel sounds are nor mal in all 4 quadrants. The abdominal aortic pulsation is not palpable. EXTREMITIES: 4+ pitting edema to the knees bilaterally. Radial pulses 2+ bilaterally. Fem oral pulses are 2+ bilaterally without bruits. DP and PT pulses are 2+ bilaterally. SKIN: Warm and dry, capillary refill is normal, no lesions. NEUROLOGIC: Awake, alert and oriented x 3. No focal motor deficits. PSYCHIATRIC: Appropriate, affect appears normal Assessment and Plan: Ángela was seen today for follow-up. Aortic stenosis, severe S/p TAVR (transcatheter aortic valve replacement), bioprosthetic Mild mitral stenosis Moderate to severe pulmonary hypertension (HCC) Paroxysmal atrial fibrillation (HCC) New onset left bundle branch block (LBBB) Obstructive sleep apnea syndrome Stage 3 chronic kidney disease (HCC) Type 2 diabetes mellitus with stage 3 chronic kidney disease, without long-term current use of insulin (HCC) in this encounter Plan of Treatment +--------+---------+ + + + | Date | Type | Specialty | Care Team | Description | +--------+---------+ + + + | 04/19/ | Office | Nephrology | Pavel Veras MD | | | 2019 | Visit | | [address] | | | | | | [address] [place], [place] | | | | | | [id number] | | | | | | | | +--------+---------+ + + + as of this encounter Visit Diagnoses + + | Diagnosis | + + | Aortic stenosis, severe - Primary | + + | Aortic valve disorders | + + | S/p TAVR (transcatheter aortic valve replacement), bioprosthetic | + + | Mild mitral stenosis | + + | Mitral stenosis | + + | Moderate to severe pulmonary hypertension (HCC) | + + | Other chronic pulmonary heart diseases | + + | Paroxysmal atrial fibrillation (HCC) | + + | Atrial fibrillation | + + | New onset left bundle branch block (LBBB) | + + | Obstructive sleep apnea syndrome | + + | Obstructive sleep apnea (adult) (pediatric) | + + | Stage 3 chronic kidney disease (HCC) | + + | Type 2 diabetes mellitus with stage 3 chronic kidney disease, without long-term | | current use of insulin (HCC) | + +
--- OUTSIDE RECORDS SUMMARY | ~2019-04-13 | XMS | Encounter Summary ---
Demographics + + + | Address | [address] | | | [place] [address] | + + + | Home Phone | | + + + | Preferred Language | Unknown | + + + | Marital Status | | + + + | Yarsani Affiliation | 1027 | + + + | Race | Unknown | + + + | Ethnic Group | Unknown | + + + Author + + + | Author | [facility] | | | and [place] | + + + | Organization | [facility] | | | and [place] | + + + | Address | Unknown | + + + | Phone | Unavailable | + + + Support + + + + + | Name | Relationship | Address | Phone | + + + + + | Libby Soriano | ECON | [address] | | | | | [place] | | | | | [address] | | + + + + + Care Team Providers + +------+ + | Care Engineer Conductor Name | Role | Phone | + +------+ + | Rajiv Wise MD | PCP | | + +------+ + Encounter Details +--------+ + + + + | Date | Type | Department | Care Team | Description | +--------+ + + + + | 03/02/ | Orders Only | [facility] | Pavel Veras MD | | | 2019 | | NEPHROLOGY [place] | [address] [place] | | | | | [address] [place] | [address] [place], [place] | | | | | [address] [place], [place] | [address] | | | | | [address] | | | | | | [phone] | | | +--------+ + + + [...] 2018 | Visit | | [address] [facility] | | | | | | [address] [place] | | | | | | [address] | | | | | | | | +--------+---------+ + + + | 04/27/ | Office | Cardiology | Sher Max, | | | 2019 | Visit | | [address] | | | | | | [place], | | | | | | [place] [address] | | | | | | [phone] | | | | | | | | +--------+---------+ + + + documented as of this encounter Visit Diagnoses Not on filedocumented in this encounter"
--- OUTSIDE RECORDS SUMMARY | ~2019-04-13 | XMS | Encounter Summary ---
Demographics + + + | Address | [address] | | | [place] [address] | + + + | Home Phone | | + + + | Preferred Language | Unknown | + + + | Marital Status | | + + + | Hindu Affiliation | 1027 | + + + | Race | Unknown | + + + | Ethnic Group | Unknown | + + + Author + + + | Author | [facility] | | | and [place] | + + + | Organization | [facility] | | | and [place] | + + + | Address | Unknown | + + + | Phone | Unavailable | + + + Support + + + + + | Name | Relationship | Address | Phone | + + + + + | Libby Soriano | ECON | [address] | | | | | [place] | | | | | [address] | | + + + + + Care Team Providers + +------+ + | Care Systems Technologist Name | Role | Phone | + +------+ + | Rajiv Wise MD | PCP | | + +------+ + Encounter Details +--------+ + + + + | Date | Type | Department | Care Team | Description | +--------+ + + + + | 02/22/ | Orders Only | [facility] | Sher Max, | | | 2019 | | CARDIOLOGY [place] | [address] | | | | | [address] | [place], | | | | | [place], [place] | [place] [address] | | | | | [address] | [phone] | | | | | [phone] | | | +--------+ + + + [...] 2018 | Visit | | [address] [facility] | | | | | | [address] [place], [place] | | | | | | [address] | | | | | | | | +--------+---------+ + + + | 04/27/ | Office | Cardiology | Sher Max, | | | 2018 | Visit | | [address] | | | | | | [place], | | | | | | [place] [address] | | | | | | [phone] | | | | | | | | +--------+---------+ + + + documented as of this encounter Visit Diagnoses Not on filedocumented in this encounter"
--- OUTSIDE RECORDS SUMMARY | ~2019-04-13 | XMS | Encounter Summary ---
Demographics + + + | Address | [address] | | | [place] [address] | + + + | Home Phone | | + + + | Preferred Language | Unknown | + + + | Marital Status | | + + + | Yazidi Affiliation | 1027 | + + + | Race | Unknown | + + + | Ethnic Group | Unknown | + + + Author + + + | Author | [facility] [employer] (Historical as of | | | 02-27-19) | + + + | Organization | [facility] (Historical as of | | | 02-27-19) | + + + | Address | Unknown | + + + | Phone | Unavailable | + + + Support + + + + + | Name | Relationship | Address | Phone | + + + + + | Libby Soriano | ECON | [address] | | | | | [place] | | | | | [address] | | + + + + + Care Team Providers + +------+ + | Care Sdc Teacher Name | Role | Phone | + +------+ + | Rajiv Wise MD | PCP | | + +------+ + Reason for Visit + + + | Reason | Comments | + + + | Labs Only | 01/28/19 | + + + Encounter Details +--------+ + + + + | Date | Type | Department | Care Team | Description | +--------+ + + + + | 01/29/ | Documentati | [facility] | Fidencio, | Labs Only (01/28/19) | | 2019 | on Only | [place] [address] | | | | | [address] | | | | | | [place] [address] | | | | | | [phone] | | | +--------+ + + + [...] | | | | | | [address] [place], [place] | | | | | | [address] | | | | | | | | +--------+---------+ + + + as of this encounter Procedures [...] section. | + +--------+ + + + in this encounter Results Iron panel (01/28/2019 11:30 AM) + [...] + + | Blood | + + in this encounter Visit Diagnoses Not on filein this encounter"
--- OUTSIDE RECORDS SUMMARY | ~2019-04-13 | XMS | Encounter Summary ---
Demographics + + + | Address | [address] | | | [place] [address] | + + + | Home Phone | | + + + | Preferred Language | Unknown | + + + | Marital Status | | + + + | Protestant Affiliation | 1027 | + + + | Race | Unknown | + + + | Ethnic Group | Unknown | + + + Author + + + | Author | [facility] [employer] [facility] (Historical as of | | | 02-27-19) | + + + | Organization | [facility] [employer] [facility] (Historical as of | | | 02-27-19) | + + + | Address | Unknown | + + + | Phone | Unavailable | + + + Support + + + + + | Name | Relationship | Address | Phone | + + + + + | Libby Soriano | ECON | [address] | | | | | [place] | | | | | [address] | | + + + + + Care Team Providers + +------+ + | Care Government Service Executive Name | Role | Phone | + [...] | | | | | [place] [address] | | | | | | [phone] | | | +--------+ + + + [...] | | | | | | [address] [place], [place] | | | | | | [address] | | | | | | | [...]
--- OUTSIDE RECORDS SUMMARY | ~2019-04-13 | XMS | Clinical Summary ---
Demographics + + + | Address | [address] | | | [place] [address] | + + + | Home Phone | | + + + | Preferred Language | Unknown | + + + | Marital Status | | + + + | Mormon Affiliation | 1027 | + + + | Race | Unknown | + + + | Ethnic Group | Unknown | + + + Author + + + | Author | [facility] (Historical as of | | | 02-27-19) | + + + | Organization | [facility] (Historical as of | | | 02-27-19) | + + + | Address | Unknown | + + + | Phone | Unavailable | + + + Support + + + + + | Name | Relationship | Address | Phone | + + + + + | Libby Soriano | ECON | [address] | + | | | | [place] | | | | | [address] | | + + + + + Care Team Providers + +------+ + | Care Accounts Manager Name | Role | Phone | [...] 2018 | on Only | | [address] | 01/14/19-02/01/19) | +--------+ + + + [...] | | | | | | [address] [place], [place] | | | | | | [address] | | | | | | | [...] + + + | [facility] | [address] | [place] [address] | [phone] | | LABORATORY | [address] | | [...] + + + | [facility] | [address] | [place] [address] | [phone] | | LABORATORY | [address] | | [...] + + + | [facility] | [address] | [place] [address] | [phone] | | LABORATORY | Blvd[address] | | [...] + + + | [facility] | [address] | [place] [address] | [phone] | | LABORATORY | [address]vd[address] | | [...] +------+-------+ + | MEDICARE | MEDICA | [id number] | | | [address] | | | RE | | | | [place] [address] | | | IP-OP | | | | | + +--------+ +------+-------+ + | [employer] | UNITED | [id number] | | | | | | | [...] | Self | [birth year] | Home: | [address] | | [place] g[place] | | 1945 | [phone] [place] | | | marin | | | 2019 | [address] | + +--------+ +--------+ + +
--- OUTSIDE RECORDS SUMMARY | ~2019-04-13 | XMS | Encounter Summary ---
Demographics + + + | Address | [address] | | | [place] [address] | + + + | Home Phone | | + + + | Preferred Language | Unknown | + + + | Marital Status | | + + + | Moravian Affiliation | 1027 | + + + | Race | Unknown | + + + | Ethnic Group | Unknown | + + + Author + + + | Author | [facility] | | | and [place] | + + + | Organization | [facility] | | | and [place] | + + + | Address | Unknown | + + + | Phone | Unavailable | + + + Support + + + + + | Name | Relationship | Address | Phone | + + + + + | Libby Soriano | ECON | [address] | | | | | [place] | | | | | [address] | | + + + + + Care Team Providers + +------+ + | Care Nail Feeder Name | Role | Phone | + +------+ + | Rajiv Wise MD | PCP | | + +------+ + Encounter Details +--------+ + + + + | Date | Type | Department | Care Team | Description | +--------+ + + + + | 02/01/ | Orders Only | [facility] | Pavel Veras MD | | | 2019 | | NEPRHOLOGY [place] | [address] | | | | | [address] | [address] [place], [place] | | | | | [address] [place], [place] | [address] | | | | | [address] | | | | | | [phone] | | | +--------+ + + + [...] 2018 | Visit | | [address] [facility] | | | | | | 160 [place] | | | | | | [address] | | | | | | | | +--------+---------+ + + + | 04/27/ | Office | Cardiology | Sher Max, | | | 2018 | Visit | | [address] | | | | | | [place], | | | | | | [place] [address] | | | | | | [phone] | | | | | | | | +--------+---------+ + + + documented as of this encounter Visit Diagnoses Not on filedocumented in this encounter"
--- OUTSIDE RECORDS SUMMARY | ~2019-04-13 | XMS | Encounter Summary ---
Demographics + + + | Address | [address] | | | [place] [address] | + + + | Home Phone | | + + + | Preferred Language | Unknown | + + + | Marital Status | | + + + | Yazidi Affiliation | 1027 | + + + | Race | Unknown | + + + | Ethnic Group | Unknown | + + + Author + + + | Author | [email or web address] (Historical as of | | | 02-27-19) | + + + | Organization | [email or web address] (Historical as of | | | 02-27-19) | + + + | Address | Unknown | + + + | Phone | Unavailable | + + + Support + + + + + | Name | Relationship | Address | Phone | + + + + + | Libby Soriano | ECON | [address] | + | | | | [place] | | | | | [address] | | + + + + + Care Team Providers + +------+ + | Care Dental Appliance Mechanic Name | Role | Phone | + [...] | | [address] | [address] [place], [place] | chronic kidney | | | | [place] [address] | [address] | disease (HCC) | | | | [phone] | | (Primary Dx); Anemia | | [...] or concerns. Truly yours, Pavel Veras MD [facility] Cc: Barbara Quiroz DANTE Wolf in this encounter Plan of Treatment +--------+---------+ + + + | Date | Type | Specialty | Care Team | Description | +--------+---------+ + + + | 04/19/ | Office | Nephrology | Pavel Veras MD | | | 2019 | Visit | | [address] | | | | | | [address] [place], [place] | | | | | | [...]
--- OUTSIDE RECORDS SUMMARY | ~2019-04-13 | XMS | Encounter Summary ---
Demographics + + + | Address | [address] | | | [place] [address] | + + + | Home Phone | | + + + | Preferred Language | Unknown | + + + | Marital Status | | + + + | Pentecostal Affiliation | 1027 | + + + | Race | Unknown | + + + | Ethnic Group | Unknown | + + + Author + + + | Author | [facility] | | | and [place] | + + + | Organization | [facility] | | | and [place] | + + + | Address | Unknown | + + + | Phone | Unavailable | + + + Support + + + + + | Name | Relationship | Address | Phone | + + + + + | Libby Soriano | ECON | [address] | | | | | [place] | | | | | [address] | | + + + + + Care Team Providers + +------+ + | Care Moving Picture Operator Name | Role | Phone | + +------+ + | Rajiv Wise MD | PCP | | + +------+ + Encounter Details +--------+ + + + + | Date | Type | Department | Care Team | Description | +--------+ + + + + | 03/03/ | Orders Only | [facility] | Pavel Veras MD | Stage 3 chronic | | 2019 | | NEPHROLOGY [place] | [address] [place] | kidney disease (HCC) | | | | [address] [place] | [address] [place], [place] | (Primary Dx); | | | | [address] [place], [place] | [address] | Anemia of chronic | | | | [address] | | disease | | | | [phone] | | | +--------+ + + + [...] 2018 | Visit | | [address] [facility] | | | | | | [address] [place] | | | | | | [address] | | | | | | | | +--------+---------+ + + + | 04/27/ | Office | Cardiology | Sher Max, | | | 2018 | Visit | | [address] | | | | | | [place] [facility], | | | | | | [place] [address] | | | | | | [phone] | | | | | | | | +--------+---------+ + + + + +--------+ + + | Name | Priori | Associated Diagnoses | Order Schedule | | | ty | | | + +--------+ + + | Misc Lab Referral | Routin | Stage 3 chronic | 1 Occurrences | | | e | kidney disease (HCC) | starting 03/03/2019 | | | | Anemia of chronic | until 02/02/2020 | | | | disease | | + +--------+ + + documented as of this encounter Visit Diagnoses + + | Diagnosis | + + | Stage 3 chronic kidney disease (HCC) - Primary | + + | Anemia of chronic disease Anemia of other chronic disease | + + documented in this encounter"
--- OUTSIDE RECORDS SUMMARY | ~2019-04-13 | XMS | Encounter Summary ---
Demographics + + + | Address | [address] | | | [place] [address] | + + + | Home Phone | | + + + | Preferred Language | Unknown | + + + | Marital Status | | + + + | Advent Affiliation | 1027 | + + + | Race | Unknown | + + + | Ethnic Group | Unknown | + + + Author + + + | Author | [facility] | | | and [place] | + + + | Organization | [facility] | | | and [place] | + + + | Address | Unknown | + + + | Phone | Unavailable | + + + Support + + + + + | Name | Relationship | Address | Phone | + + + + + | Libby Soriano | ECON | [address] | | | | | [place] | | | | | [address] | | + + + + + Care Team Providers + +------+ + | Care Wrecking Supervisor Name | Role | Phone | + +------+ + | Rajiv Wise MD | PCP | | + +------+ + Encounter Details +--------+ + + + + | Date | Type | Department | Care Team | Description | +--------+ + + + + | 03/09/ | Orders Only | [facility] | Pavel Veras MD | Chronic kidney | | 2019 | | NEPHROLOGY [place] | [address] [place] | disease, stage III | | | | [address] [place] | [address] [place], [place] | (moderate) (HCC); | | | | [address] [place], [place] | [address] | Anemia in other | | | | [address] | | chronic diseases | | | | [phone] | | classified elsewhere | +--------+ + [...] 2018 | Visit | | [address] [facility] | | | | | | [address] [place] | | | | | | [address] | | | | | | | | +--------+---------+ + + + | 04/27/ | Office | Cardiology | Sher Max, | | | 2018 | Visit | | [address] | | | | | | [place], | | | | | | [place] [address] | | | | | | [phone] | | | | | | | [...]
--- OUTSIDE RECORDS SUMMARY | ~2019-04-13 | XMS | Encounter Summary ---
Demographics + + + | Address | [address] | | | [place] [address] | + + + | Home Phone | | + + + | Preferred Language | Unknown | + + + | Marital Status | | + + + | Episcopalian Affiliation | 1027 | + + + | Race | Unknown | + + + | Ethnic Group | Unknown | + + + Author + + + | Author | [facility] (Historical as of | | | 02-27-19) | + + + | Organization | [facility] (Historical as of | | | 02-27-19) | + + + | Address | Unknown | + + + | Phone | Unavailable | + + + Support + + + + + | Name | Relationship | Address | Phone | + + + + + | Libby Soriano | ECON | [address] | + | | | | [place] | | | | | [address] | | + + + + + Care Team Providers + +------+ + | Care Die Cast Patternmaker Name | Role | Phone | + +------+ + | Rajiv Wise MD | PCP | | + +------+ + Encounter Details +--------+ + + + + | Date | Type | Department | Care Team | Description | +--------+ + + + + | 01/29/ | Orders Only | [facility] | Nicolas, | Essential | | 2019 | | [place] [address] | hypertension; Stage | | | | [address] | | 3 chronic kidney | | | | [place] [address] | | disease (HCC); | | | | [phone] | | Electrolyte | | | | | | imbalance risk; | | | | | | Anemia of chronic | | | | | | renal failure, stage | | | | | | 4 (severe) (HCC) | +--------+ + + + + Social [...] | | | | | | [address] | | | | | | [address] | | | | | | | [...] | | | | | 4 (severe) ([facility]) | | + +--------+ + + + [...] + + + in this encounter Results Ferritin (01/28/2019 11:30 AM) + +-------+ + [...] | + + + + + | [facility] | [address] | [place] [address] | [phone] | | LABORATORY | Blvd[address] | | [...] | + + + + + | [facility] | [address] | [place] [address] | [phone] | | LABORATORY | Blvd[address] | | [...] | + + + + + | [facility] | [address] | [place] [address] | [phone] | | LABORATORY | Blvd. | | | + + + + + PTH intact no calcium (01/28/2019 [...] + + + | [facility] | [address] | [place] [address] | [phone] | | LABORATORY | Blvd. | | | + + + + + in this encounter Visit Diagnoses + + | Diagnosis | + + | Essential hypertension | + + | Unspecified essential hypertension | + + | Stage 3 chronic kidney disease (HCC) | + + | Electrolyte imbalance risk | + + | Other specified conditions influencing health status | + + | Anemia of chronic renal failure, stage 4 (severe) (HCC) | + +"
--- OUTSIDE RECORDS SUMMARY | ~2019-04-13 | XMS | Encounter Summary ---
Demographics + + + | Address | [address] | | | [place] [address] | + + + | Home Phone | | + + + | Preferred Language | Unknown | + + + | Marital Status | | + + + | Baptism Affiliation | 1027 | + + + | Race | Unknown | + + + | Ethnic Group | Unknown | + + + Author + + + | Author | [facility] | | | and [place] | + + + | Organization | [facility] | | | and [place] | + + + | Address | Unknown | + + + | Phone | Unavailable | + + + Support + + + + + | Name | Relationship | Address | Phone | + + + + + | Libby Soriano | ECON | [address] | | | | | [place] | | | | | [address] | | + + + + + Care Team Providers + +------+ + | Care Pellet Machine Operator Name | Role | Phone | + +------+ + | Rajiv Wise MD | PCP | | + +------+ + Encounter Details +--------+ + + + + | Date | Type | Department | Care Team | Description | +--------+ + + + + | 03/02/ | Orders Only | [facility] | Pavel Veras MD | | | 2019 | | NEPHROLOGY [place] | [address] [place] | | | | | [address] [place] | [address] [place], [place] | | | | | [address] [place], [place] | [address] | | | | | [address] | | | | | | [phone] | | | +--------+ + + + [...] 2018 | Visit | | [address] [facility] | | | | | | [place] | | | | | | [address] | | | | | | | | +--------+---------+ + + + | 04/27/ | Office | Cardiology | Sher Max, | | | 2019 | Visit | | [address] | | | | | | [place], | | | | | | [place] [address] | | | | | | [phone] | | | | | | | | +--------+---------+ + + + documented as of this encounter Visit Diagnoses Not on filedocumented in this encounter"
--- OUTSIDE RECORDS SUMMARY | ~2019-04-13 | XMS | Encounter Summary ---
Demographics + + + | Address | [address] | | | [place] [address] | + + + | Home Phone | | + + + | Preferred Language | Unknown | + + + | Marital Status | | + + + | Pentecostalism Affiliation | 1027 | + + + | Race | Unknown | + + + | Ethnic Group | Unknown | + + + Author + + + | Author | [facility] (Historical as of | | | 02-27-19) | + + + | Organization | [facility] (Historical as of | | | 02-27-19) | + + + | Address | Unknown | + + + | Phone | Unavailable | + + + Support + + + + + | Name | Relationship | Address | Phone | + + + + + | Libby Soriano | ECON | [address] | + | | | | [place] | | | | | [address] | | + + + + + Care Team Providers + +------+ + | Care Save All Operator Name | Role | Phone | [...] | | [address] | [address] [place], [place] | chronic kidney | | | | [place] [address] | [address] | disease (HCC) | | | | [phone] | | (Primary Dx); Anemia | | [...] this encounter Instructions Patient Instructions - Pavel Vreas MD - 02/01/2019 1:10 PM PDTDiscussions/Recommendatio ns: I discussed today with Ms. Soriano the meaning of her JESSICA and the interaction of avla t with her vital organs. I stressed [...] or concerns. Truly yours, Pavel Veras MD [facility] Cc: Barbara Quiroz DANTE Wolf in this encounter Plan of Treatment +--------+---------+ + + + | Date | Type | Specialty | Care Team | Description | +--------+---------+ + + + | 04/19/ | Office | Nephrology | Pavel Veras MD | | | 2019 | Visit | | [address] | | | | | | [address] [place], [place] | | | | | | [...]
--- OUTSIDE RECORDS SUMMARY | ~2019-04-13 | XMS | Encounter Summary ---
Demographics + + + | Address | [address] | | | [place] [address] | + + + | Home Phone [...] + | Libby Soriano | ECON | [address] | | | | | [place], [place] | | | | | [address] | | + + + + + Care Team Providers + +------+ + | Care Precision Lens Polisher Name | Role | Phone | + [...] [place] | | | | | | [address] | (Fax) | | | | | [phone] | | | +--------+ + + + [...] | | | | | | [address] [facility] | | | | | | [address] | | | | | | | | +--------+---------+ + + + | 04/27/ | Office | Cardiology | Sher Max, | | | 2018 | Visit | | [address] | | | | | | [place] [facility] [place] | | | | | | [place] [address] | | | | | | [phone] | | | | | | | [...]
--- OUTSIDE RECORDS SUMMARY | ~2019-04-13 | XMS | Encounter Summary ---
Demographics + + + | Address | [address] | | | [place] [address] | + + + | Home Phone | | + + + | Preferred Language | Unknown | + + + | Marital Status | | + + + | Restorationism Affiliation | 1027 | + + + | Race | Unknown | + + + | Ethnic Group | Unknown | + + + Author + + + | Author | [employer] [facility] [employer] [employer] (Historical as of | | | 02-27-19) | + + + | Organization | [facility] [employer] [employer] (Historical as of | | | 02-27-19) | + + + | Address | Unknown | + + + | Phone | Unavailable | + + + Support + + + + + | Name | Relationship | Address | Phone | + + + + + | Libby Soriano | ECON | [address] | | | | | [place], [place] | | | | | [address] | | + + + + + Care Team Providers + +------+ + | Care Phone Technician Name | Role | Phone | [...] | | | | | [place] [address] | | | | | | [phone] | | | +--------+ + + + [...] | | | | | | [address] [place], [place] | | | | | | [address] | | | | | | | | +--------+---------+ + + + as of this encounter Visit Diagnoses Not on filein this encounter"
--- OUTSIDE RECORDS SUMMARY | ~2019-04-13 | XMS | Encounter Summary ---
Demographics + + + | Address | [address] | | | [place] [address] | + + + | Home Phone | | + + + | Preferred Language | Unknown | + + + | Marital Status | | + + + | Hinduism Affiliation | 1027 | + + + | Race | Unknown | + + + | Ethnic Group | Unknown | + + + Author + + + | Author | [facility] | | | and [place] | + + + | Organization | [facility] | | | and [place] | + + + | Address | Unknown | + + + | Phone | Unavailable | + + + Support + + + + + | Name | Relationship | Address | Phone | + + + + + | Libby Soriano | ECON | [address] | | | | | [place], [place] | | | | | [address] | | + + + + + Care Team Providers + +------+ + | Care Field Tech Name | Role | Phone | + [...] [place] | | | | | | [address] | (Fax) | | | | | [phone] | | | +--------+ + + + [...] | | | | | | [address] [facility] | | | | | | [address] | | | | | | | | +--------+---------+ + + + | 04/27/ | Office | Cardiology | Sher Max, | | | 2018 | Visit | | [address] | | | | | | [place] [facility] [place], | | | | | | [place] [address] | | | | | | [phone] | | | | | | | [...]
--- OUTSIDE RECORDS SUMMARY | ~2019-04-13 | XMS | Encounter Summary ---
Demographics + + + | Address | [address] | | | [place] [address] | + + + | Home Phone [...] + | Author | [facility] | | | and [place] | + + + | Organization | [facility] | | | and [place] | + + + | Address | Unknown | + + + | Phone | Unavailable | + + + Support + + + + + | Name | Relationship | Address | Phone | + + + + + | Libby Soriano | ECON | [address] | | | | | [place] | | | | | [address] | | + + + + + Care Team Providers + +------+ + | Care Dixonac Operator Name | Role | Phone | + +------+ + | Rajiv Wise MD | PCP | | + +------+ + Encounter Details +--------+ + + + + | Date | Type | Department | Care Team | Description | +--------+ + + + + | 02/01/ | Orders Only | [facility] | Pavel Veras MD | | | 2019 | | NEPRHOLOGY [place] | [address] | | | | | [address] | [address] [place], [place] | | | | | [address] [place], [place] | [address] | | | | | [address] | | | | | | [phone] | | | +--------+ + + + [...] 2018 | Visit | | [address] [facility] | | | | | | 160 [place] | | | | | | [address] | | | | | | | | +--------+---------+ + + + | 04/27/ | Office | Cardiology | Sher Max, | | | 2018 | Visit | | [address] | | | | | | [place], | | | | | | [place] [address] | | | | | | [phone] | | | | | | | | +--------+---------+ + + + documented as of this encounter Visit Diagnoses Not on filedocumented in this encounter"
--- OUTSIDE RECORDS SUMMARY | ~2019-04-13 | XMS | Encounter Summary ---
Demographics + + + | Address | [address] | | | [place] [address] | + + + | Home Phone | | + + + | Preferred Language | Unknown | + + + | Marital Status | | + + + | Jewish Affiliation | 1027 | + + + | Race | Unknown | + + + | Ethnic Group | Unknown | + + + Author + + + | Author | [facility] (Historical as of | | | 02-27-19) | + + + | Organization | [facility] (Historical as of | | | 02-27-19) | + + + | Address | Unknown | + + + | Phone | Unavailable | + + + Support + + + + + | Name | Relationship | Address | Phone | + + + + + | Libby Soriano | ECON | [address] | + | | | | [place] | | | | | [address] | | + + + + + Care Team Providers + +------+ + | Care Hardware Engineer Name | Role | Phone | + +------+ + | Rajiv Wise MD | PCP | | + +------+ + Encounter Details +--------+ + + + + | Date | Type | Department | Care Team | Description | +--------+ + + + + | 02/01/ | Telephone | [facility] | Fidencio, | | | 2019 | | [place] [address] | | | | | [address] | | | | | | [place] [address] | | | | | | [phone] | | | +--------+ + + + [...] | | | | | | [address] [place], [place] | | | | | | [address] | | | | | | | | +--------+---------+ + + + + +--------+ + + | Name | Priori | Associated Diagnoses | Order Schedule | | | ty | | | + +--------+ + + | Basic metabolic panel | Routin | Stage 3 chronic | Expected: | | | e | kidney disease (HCC) | 02/08/2019, Expires: | | | | | 02/02/2020 | + +--------+ + + | Basic metabolic panel | Routin | Stage 3 chronic | Expected: | | | e | kidney disease ([facility]) | 03/01/2019, Expires: | | | | | 02/02/2020 | + +--------+ + + | CBC W/Auto Diff (Reflex to | Routin | Stage 3 chronic | Expected: | | Manual) | e | kidney disease ([facility]) | 03/01/2019, Expires: | | | | | 02/02/2020 | + +--------+ + + | Renal function panel | Routin | Stage 3 chronic | Expected: | | | e | kidney disease ([facility]) | 04/04/2019, Expires: | | | | Anemia of chronic | 02/02/2020 | | | | disease | | + +--------+ + + | Magnesium | Routin | Stage 3 chronic | Expected: | | | e | kidney disease ([facility]) | 04/04/2019, Expires: | | | | Anemia of chronic | 02/02/2020 | | | | disease | | + +--------+ + + | CBC W/Auto Diff (Reflex to | Routin | Stage 3 chronic | Expected: | | Manual) | e | kidney disease ([facility]) | 04/04/2019, Expires: | | | | Anemia of chronic | 02/02/2020 | | | | disease | | + +--------+ + + | Iron Panel W/UIBC | Routin | Stage 3 chronic | Expected: | | | e | kidney disease ([facility]) | 04/04/2019, Expires: | | | | Anemia of chronic | 02/02/2020 | | | | disease | | + +--------+ + + | Ferritin | Routin | Stage 3 chronic | Expected: | | | e | kidney disease ([facility]) | 04/04/2019, Expires: | | | | Anemia of chronic | 02/02/2020 | | | | disease | | + +--------+ + + | Uric acid | Routin | Stage 3 chronic | Expected: | | | e | kidney disease ([facility]) | 04/04/2019, Expires: | | | | Anemia of chronic | 02/02/2020 | | | | disease | | + +--------+ + + | PTH intact no calcium | Routin | Stage 3 chronic | Expected: | | | e | kidney disease (HCC) | 04/04/2019, Expires: | | | | Anemia of chronic | 02/02/2020 | | | | disease | | + +--------+ + + as of this encounter Visit Diagnoses + + | Diagnosis | + + | Stage 3 chronic kidney disease (HCC) - Primary | + + | Anemia of chronic disease | + + | Anemia of other chronic disease | + +"
--- OUTSIDE RECORDS SUMMARY | ~2019-04-13 | XMS | Encounter Summary ---
Demographics + + + | Address | [address] | | | [place] [address] | + + + | Home Phone | | + + + | Preferred Language | Unknown | + + + | Marital Status | | + + + | Evangelical Affiliation | 1027 | + + + | Race | Unknown | + + + | Ethnic Group | Unknown | + + + Author + + + | Author | [facility] (Historical as of | | | 02-27-19) | + + + | Organization | [facility] (Historical as of | | | 02-27-19) | + + + | Address | Unknown | + + + | Phone | Unavailable | + + + Support + + + + + | Name | Relationship | Address | Phone | + + + + + | Libby Soriano | ECON | [address] | + | | | | [place] | | | | | [address] | | + + + + + Care Team Providers + +------+ + | Care Supervisor Lead Refinery Name | Role | Phone | + +------+ + | Rajiv Wise MD | PCP | | + +------+ + Encounter Details +--------+ + + + + | Date | Type | Department | Care Team | Description | +--------+ + + + + | 02/01/ | Telephone | [facility] | Fidencio, | | | 2019 | | [place] [address] | | | | | [address] | | | | | | [place] [address] | | | | | | [phone] | | | +--------+ + + + [...] | | | | | | [address] [place], [place] | | | | | | [address] | | | | | | | [...] | | | e | kidney disease ([facility]) | 03/01/2019, Expires: | | | | | 02/02/2020 | + +--------+ + + | CBC W/Auto Diff (Reflex to | Routin | Stage 3 chronic | Expected: | | Manual) | e | kidney disease ([facility]) | 03/01/2019, Expires: | | | | | 02/02/2020 | + +--------+ + + | Renal function panel | Routin | Stage 3 chronic | Expected: | | | e | kidney disease ([facility]) | 04/04/2019, Expires: | | | | Anemia of chronic | 02/02/2020 | | | | disease | | + +--------+ + + | Magnesium | Routin | Stage 3 chronic | Expected: | | | e | kidney disease ([facility]) | 04/04/2019, Expires: | | | | Anemia of chronic | 02/02/2020 | | | | disease | | + +--------+ + + | CBC W/Auto Diff (Reflex to | Routin | Stage 3 chronic | Expected: | | Manual) | e | kidney disease ([facility]) | 04/04/2019, Expires: | | | | Anemia of chronic | 02/02/2020 | | | | disease | | + +--------+ + + | Iron Panel W/UIBC | Routin | Stage 3 chronic | Expected: | | | e | kidney disease ([facility]) | 04/04/2019, Expires: | | | | Anemia of chronic | 02/02/2020 | | | | disease | | + +--------+ + + | Ferritin | Routin | Stage 3 chronic | Expected: | | | e | kidney disease ([facility]) | 04/04/2019, Expires: | | | | Anemia of chronic | 02/02/2020 | | | | disease | | + +--------+ + + | Uric acid | Routin | Stage 3 chronic | Expected: | | | e | kidney disease ([facility]) | 04/04/2019, Expires: | | | | [...]
--- OUTSIDE RECORDS SUMMARY | ~2019-04-13 | XMS | Encounter Summary ---
Demographics + + + | Address | [address] | | | [place] [address] | + + + | Home Phone | | + + + | Preferred Language | Unknown | + + + | Marital Status | | + + + | Islam Affiliation | 1027 | + + + | Race | Unknown | + + + | Ethnic Group | Unknown | + + + Author + + + | Author | [facility] | | | and [place] | + + + | Organization | [facility] | | | and [place] | + + + | Address | Unknown | + + + | Phone | Unavailable | + + + Support + + + + + | Name | Relationship | Address | Phone | + + + + + | Libby Soriano | ECON | [address] | | | | | [place] | | | | | [address] | | + + + + + Care Team Providers + +------+ + | Care Radioactive Waste Disposal Dispatcher Name | Role | Phone | + +------+ + | Rajiv Wise MD | PCP | | + +------+ + Encounter Details +--------+ + + + + | Date | Type | Department | Care Team | Description | +--------+ + + + + | 02/26/ | Orders Only | [facility] | Barbara Wolf | 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 | | | | [address] | [place] [address] | kidney disease | | | | [place], [place] | [phone] | (HCC); Chronic | | | | [address] | | kidney disease, | | | | [phone] | | stage III (moderate) | | [...] 2019 | Visit | | [address] [facility] | | | | | | [address] [place], [place] | | | | | | [address] | | | | | | | | +--------+---------+ + + + | 04/27/ | Office | Cardiology | Sher Max, | | | 2018 | Visit | | [address] | | | | | | [place], | | | | | | [place] [address] | | | | | | [phone] | | | | | | | [...] 02/08/2019, Expires: | | | | (moderate) ([facility]) | 02/02/2020 | + +--------+ + + | Basic Metabolic Panel | Routin | Chronic kidney | Expected: | | | e | disease, stage III | 03/01/2019, Expires: | | | | (moderate) ([facility]) | 02/02/2020 | + +--------+ + + | CBC with Differential | Routin | Chronic kidney | Expected: | | | e | disease, stage III | 03/01/2019, Expires: | | | | (moderate) ([facility]) | 02/02/2020 | + +--------+ + + | Renal Function Panel | Routin | Chronic kidney | Expected: | | | e | disease, stage III | 04/04/2019, Expires: | | | | (moderate) ([facility]) | 02/02/2020 | | | | Anemia in other | | | | | chronic diseases | | | | | classified elsewhere | | + +--------+ + + | Magnesium | Routin | Chronic kidney | Expected: | | | e | disease, stage III | 04/04/2019, Expires: | | | | (moderate) ([facility]) | 02/02/2020 | | | | Anemia in other | | | | | chronic diseases | | | | | classified elsewhere | | + +--------+ + + | CBC with Differential | Routin | Chronic kidney | Expected: | | | e | disease, stage III | 04/04/2019, Expires: | | | | (moderate) ([facility]) | 02/02/2020 | | | | Anemia in other | | | | | chronic diseases | | | | | classified elsewhere | | + +--------+ + + | Ferritin | Routin | Chronic kidney | Expected: | | | e | disease, stage III | 04/04/2019, Expires: | | | | (moderate) ([facility]) | 02/02/2020 | | | | Anemia in other | | | | | chronic diseases | | | | | classified elsewhere | | + +--------+ + + | Uric Acid | Routin | Chronic kidney | Expected: | | | e | disease, stage III | 04/04/2019, Expires: | | | | (moderate) ([facility]) | 02/02/2020 | | | | Anemia in other | | | | | chronic diseases | | | | | classified elsewhere | | + +--------+ + + | Parathyroid Hormone, Intact | Routin | Chronic kidney | Expected: | | | e | disease, stage III | 04/04/2019, Expires: | | | | (moderate) ([facility]) | 02/02/2020 | | | | Anemia [...]
--- OUTSIDE RECORDS SUMMARY | ~2019-04-13 | XMS | Clinical Summary ---
Demographics + + + | Address | [address] | | | [place] [address] | + + + | Home Phone | | + + + | Preferred Language | Unknown | + + + | Marital Status | | + + + | Jew Affiliation | 1027 | + + + | Race | Unknown | + + + | Ethnic Group | Unknown | + + + Author + + + | Author | [facility] | | | and [place] | + + + | Organization | [facility] | | | and [place] | + + + | Address | Unknown | + + + | Phone | Unavailable | + + + Support + + + + + | Name | Relationship | Address | Phone | + + + + + | Libby Soriano | ECON | [address] | | | | | [place], [place] | | | | | [address] | | + + + + + Care Team Providers + +------+ + | Care Adjuster Piano Action Name | Role | Phone | + [...] 2018 | Visit | | [address] [facility] | | | | | | [address] [place] | | | | | | [address] | | | | | | | | +--------+---------+ + + + | 04/27/ | Office | Cardiology | Sher Max, | | | 2018 | Visit | | [address] | | | | | | [place], | | | | | | [place] [address] | | | | | | [phone] | | | | | | | [...] | | | LAB | | | [place] | | | | | + + [...] +--------+ +---------+--------+ | MEDICARE | MEDICA | [id number] | | [phone] | | Medica | [...] Person | Self | [birth year] | [address] | | Shawna | verna/Amadeo | | 1945 | [phone] | [place] | | | marin | | | 8 (Home) | [address] | + +--------+ +--------+ + + Advance Directives Patient has advance care planning documents on file. For more information, please contact:[facility] [address]
--- OUTSIDE RECORDS SUMMARY | ~2019-04-13 | XMS | Encounter Summary ---
Demographics + + + | Address | [address] | | | [place] [address] | + + + | Home Phone | | + + + | Preferred Language | Unknown | + + + | Marital Status | | + + + | Catholic Affiliation | 1027 | + + + | Race | Unknown | + + + | Ethnic Group | Unknown | + + + Author + + + | Author | [facility] | | | and [place] | + + + | Organization | [facility] | | | and [place] | + + + | Address | Unknown | + + + | Phone | Unavailable | + + + Support + + + + + | Name | Relationship | Address | Phone | + + + + + | Libby Soriano | ECON | [address] | | | | | [place] | | | | | [address] | | + + + + + Care Team Providers + +------+ + | Care Housing Counselor Name | Role | Phone | + +------+ + | Rajiv Wise MD | PCP | | + +------+ + Encounter Details +--------+ + + + + | Date | Type | Department | Care Team | Description | +--------+ + + + + | 02/26/ | Orders Only | [facility] | Barbara Wolf | 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 | | | | [address] | [place] [address] | kidney disease | | | | [place], [place] | [phone] | (HCC); Chronic | | | | [address] | | kidney disease, | | | | [phone] | | stage III (moderate) | | [...] 2019 | Visit | | [address] [facility] | | | | | | [address] [place], [place] | | | | | | [address] | | | | | | | | +--------+---------+ + + + | 04/27/ | Office | Cardiology | Sher Max, | | | 2018 | Visit | | [address] | | | | | | [place], | | | | | | [place] [address] | | | | | | [phone] | | | | | | | [...] 02/08/2019, Expires: | | | | (moderate) ([facility]) | 02/02/2020 | + +--------+ + + | Basic Metabolic Panel | Routin | Chronic kidney | Expected: | | | e | disease, stage III | 03/01/2019, Expires: | | | | (moderate) ([facility]) | 02/02/2020 | + +--------+ + + | CBC with Differential | Routin | Chronic kidney | Expected: | | | e | disease, stage III | 03/01/2019, Expires: | | | | (moderate) ([facility]) | 02/02/2020 | + +--------+ + + | Renal Function Panel | Routin | Chronic kidney | Expected: | | | e | disease, stage III | 04/04/2019, Expires: | | | | (moderate) ([facility]) | 02/02/2020 | | | | Anemia in other | | | | | chronic diseases | | | | | classified elsewhere | | + +--------+ + + | Magnesium | Routin | Chronic kidney | Expected: | | | e | disease, stage III | 04/04/2019, Expires: | | | | (moderate) ([facility]) | 02/02/2020 | | | | Anemia in other | | | | | chronic diseases | | | | | classified elsewhere | | + +--------+ + + | CBC with Differential | Routin | Chronic kidney | Expected: | | | e | disease, stage III | 04/04/2019, Expires: | | | | (moderate) ([facility]) | 02/02/2020 | | | | Anemia in other | | | | | chronic diseases | | | | | classified elsewhere | | + +--------+ + + | Ferritin | Routin | Chronic kidney | Expected: | | | e | disease, stage III | 04/04/2019, Expires: | | | | (moderate) ([facility]) | 02/02/2020 | | | | Anemia in other | | | | | chronic diseases | | | | | classified elsewhere | | + +--------+ + + | Uric Acid | Routin | Chronic kidney | Expected: | | | e | disease, stage III | 04/04/2019, Expires: | | | | (moderate) ([facility]) | 02/02/2020 | | | | Anemia in other | | | | | chronic diseases | | | | | classified elsewhere | | + +--------+ + + | Parathyroid Hormone, Intact | Routin | Chronic kidney | Expected: | | | e | disease, stage III | 04/04/2019, Expires: | | | | (moderate) ([facility]) | 02/02/2020 | | | | Anemia [...]
--- OUTSIDE RECORDS SUMMARY | ~2019-04-13 | XMS | Encounter Summary ---
Demographics + + + | Address | [address] | | | [place] [address] | + + + | Home Phone | | + + + | Preferred Language | Unknown | + + + | Marital Status | | + + + | Christian Affiliation | 1027 | + + + | Race | Unknown | + + + | Ethnic Group | Unknown | + + + Author + + + | Author | [facility] | | | and [place] | + + + | Organization | [facility] | | | and [place] | + + + | Address | Unknown | + + + | Phone | Unavailable | + + + Support + + + + + | Name | Relationship | Address | Phone | + + + + + | Libby Soriano | ECON | [address] | | | | | [place] | | | | | [address] | | + + + + + Care Team Providers + +------+ + | Care Truck Driving Instructor Name | Role | Phone | + +------+ + | Rajiv Wise MD | PCP | | + +------+ + Encounter Details +--------+ + + + + | Date | Type | Department | Care Team | Description | +--------+ + + + + | 03/09/ | Orders Only | [facility] | Pavel Veras MD | Chronic kidney | | 2019 | | NEPHROLOGY [place] | [address] [place] | disease, stage III | | | | [address] [place] | [address] [place], [place] | (moderate) (HCC); | | | | [address] [place], [place] | [address] | Anemia in other | | | | [address] | | chronic diseases | | | | [phone] | | classified elsewhere | +--------+ + [...] 2018 | Visit | | [address] [facility] | | | | | | [address] [place] | | | | | | [address] | | | | | | | | +--------+---------+ + + + | 04/27/ | Office | Cardiology | Sher Max, | | | 2018 | Visit | | [address] | | | | | | [place], | | | | | | [place] [address] | | | | | | [phone] | | | | | | | [...]
--- OUTSIDE RECORDS SUMMARY | ~2019-04-13 | XMS | Clinical Summary ---
Demographics + + + | Address | [address] | | | [place] [address] | + + + | Home Phone [...] + | Libby Soriano | ECON | [address] | | | | | [place], [place] | | | | | [address] | | + + + + + Care Team Providers + +------+ + | Care Adult Basic Education Manager Name | Role | Phone | [...] 2018 | Visit | | [address] [facility] | | | | | | [address] [place] | | | | | | [address] | | | | | | | | +--------+---------+ + + + | 04/27/ | Office | Cardiology | Sher Max, | | | 2018 | Visit | | MD [address] | | | | | | [place], | | | | | | [place] [address] | | | | | | [phone] | | | | | | | [...] | | | LAB | | | [place] | | | | | + + [...] +--------+ +---------+--------+ | MEDICARE | MEDICA | [id number] | | [phone] | | Medica | [...] Person | Self | [birth year] | | [address] | | Shawna | verna/Amadeo | | 1945 | [phone] | [place] | | | [place] | | | 8 (Home) | [address] | + +--------+ +--------+ + + Advance Directives Patient has advance care planning documents on file. For more information, please contact:[facility] [place] [address]
--- OUTSIDE RECORDS SUMMARY | ~2019-04-13 | XMS | Encounter Summary ---
Demographics + + + | Address | [address] | | | [place] [address] | + + + | Home Phone | | + + + | Preferred Language | Unknown | + + + | Marital Status | | + + + | Presybeterian Affiliation | 1027 | + + + | Race | Unknown | + + + | Ethnic Group | Unknown | + + + Author + + + | Author | [facility] | | | and [place] | + + + | Organization | [facility] | | | and [place] | + + + | Address | Unknown | + + + | Phone | Unavailable | + + + Support + + + + + | Name | Relationship | Address | Phone | + + + + + | Libby Soriano | ECON | [address] | | | | | [place] | | | | | [address] | | + + + + + Care Team Providers + +------+ + | Care Customer Success Specialist Name | Role | Phone | + +------+ + | Rajiv Wise MD | PCP | | + +------+ + Encounter Details +--------+ + + + + | Date | Type | Department | Care Team | Description | +--------+ + + + + | 03/03/ | Orders Only | [facility] | Pavel Veras MD | Stage 3 chronic | | 2019 | | NEPHROLOGY [place] | [address] [place] | kidney disease (HCC) | | | | [address] [place] | [address] [place], [place] | (Primary Dx); | | | | [address] [place], [place] | [address] | Anemia of chronic | | | | [address] | | disease | | | | [phone] | | | +--------+ + + + [...] | Visit | | [address] [facility] | | | | | | [address] [place] | | | | | | [address] | | | | | | | | +--------+---------+ + + + | 04/27/ | Office | Cardiology | Sher Max, | | | 2018 | Visit | | MD [address] | | | | | | [place] [facility] | | | | | | [place] [address] | | | | | | [phone] | | | | | | | [...]
--- OUTSIDE RECORDS SUMMARY | ~2019-04-13 | XMS | Encounter Summary ---
Demographics + + + | Address | [address] | | | [place] [address] | + + + | Home Phone | | + + + | Preferred Language | Unknown | + + + | Marital Status | | + + + | Worship Affiliation | 1027 | + + + | Race | Unknown | + + + | Ethnic Group | Unknown | + + + Author + + + | Author | [facility] [employer] (Historical as of | | | 02-27-19) | + + + | Organization | [facility] [employer] (Historical as of | | | 02-27-19) | + + + | Address | Unknown | + + + | Phone | Unavailable | + + + Support + + + + + | Name | Relationship | Address | Phone | + + + + + | Libby Soriano | ECON | [address] | + | | | | [place] | | | | | [address] | | + + + + + Care Team Providers + +------+ + | Care Openstack Cloud Consulting Architect Name | Role | Phone | + [...] | | | | | [place] [address] | | | | | | [phone] | | | +--------+ + + + [...] [place] | | | | | | [id number] | | | | | | | | +--------+---------+ + + + as of this encounter Visit Diagnoses Not on filein this encounter"
--- OUTSIDE RECORDS SUMMARY | ~2019-04-13 | XMS | Encounter Summary ---
Demographics + + + | Address | [address] | | | [place] [address] | + + + | Home Phone | | + + + | Preferred Language | Unknown | + + + | Marital Status | | + + + | Gnosticism Affiliation | 1027 | + + + | Race | Unknown | + + + | Ethnic Group | Unknown | + + + Author + + + | Author | [facility] | | | and [place] | + + + | Organization | [facility] | | | and [place] | + + + | Address | Unknown | + + + | Phone | Unavailable | + + + Support + + + + + | Name | Relationship | Address | Phone | + + + + + | Libby Soriano | ECON | [address] | | | | | [place], [place] | | | | | [address] | | + + + + + Care Team Providers + +------+ + | Care Writer Editor Name | Role | Phone | + +------+ + PCP | Unavailable | + +------+ + Encounter Details +--------+ + + + + | Date | Type | Department | Care Team | Description | +--------+ + + + + | 01/28/ | Orders Only | [facility] | Pavel Versa MD | | | 2019 | | NEPHROLOGY [place] | [address] [place] | | | | | [address] [place] | [address] [place], [place] | | | | | [address] [place], [place] | [address] | | | | | [address] | | | | | | [phone] | | | +--------+ + + + [...] 2018 | Visit | | [address] [facility] | | | | | | [address] [place], [place] | | | | | | [address] | | | | | | | | +--------+---------+ + + + | 04/27/ | Office | Cardiology | Sher Max, | | | 2018 | Visit | | [address] | | | | | | [place], | | | | | | [place] [address] | | | | | | [phone] | | | | | | | [...]
--- OUTSIDE RECORDS SUMMARY | ~2019-04-13 | XMS | Encounter Summary ---
Demographics + + + | Address | [address] | | | [place] [address] | + + + | Home Phone | | + + + | Preferred Language | Unknown | + + + | Marital Status | | + + + | Bahai Affiliation | 1027 | + + + | Race | Unknown | + + + | Ethnic Group | Unknown | + + + Author + + + | Author | [facility] | | | and [place] | + + + | Organization | [facility] | | | and [place] | + + + | Address | Unknown | + + + | Phone | Unavailable | + + + Support + + + + + | Name | Relationship | Address | Phone | + + + + + | Libby Soriano | ECON | [address] | | | | | [place], [place] | | | | | [address] | | + + + + + Care Team Providers + +------+ + | Care Document Processing Specialist Name | Role | Phone | + +------+ + PCP | Unavailable | + +------+ + Encounter Details +--------+ + + + + | Date | Type | Department | Care Team | Description | +--------+ + + + + | 01/28/ | Orders Only | [facility] | Pavel Veras MD | | | 2019 | | NEPHROLOGY [place] | [address] [place] | | | | | [address] [place] | [address] [place], [place] | | | | | [address] [place], [place] | [address] | | | | | [address] | | | | | | [phone] | | | +--------+ + + + [...] 2018 | Visit | | [address] [facility] | | | | | | [address] [place], [place] | | | | | | [address] | | | | | | | | +--------+---------+ + + + | 04/27/ | Office | Cardiology | Sher Max, | | | 2018 | Visit | | [address] | | | | | | [place], | | | | | | [place] [address] | | | | | | [phone] | | | | | | | [...] | | | LAB | | | [place] | | | | | + + [...]
--- OUTSIDE RECORDS SUMMARY | ~2019-04-13 | XMS | Encounter Summary ---
Demographics + + + | Address | [address] | | | [place] [address] | + + + | Home Phone | | + + + | Preferred Language | Unknown | + + + | Marital Status | | + + + | Sabianist Affiliation | 1027 | + + + | Race | Unknown | + + + | Ethnic Group | Unknown | + + + Author + + + | Author | [facility] (Historical as of | | | 02-27-19) | + + + | Organization | [facility] (Historical as of | | | 02-27-19) | + + + | Address | Unknown | + + + | Phone | Unavailable | + + + Support + + + + + | Name | Relationship | Address | Phone | + + + + + | Libby Soriano | ECON | [address] | | | | | [place] | | | | | [address] | | + + + + + Care Team Providers + +------+ + | Care Developer Designer Name | Role | Phone | + [...] + + | 02/22/ | Office | [facility] | Sher Max, | Aortic stenosis, | | 2018 | Visit | Cardiology [place] | [address] | severe (Primary Dx); | | | | [address] | [place], | S/p TAVR | | | | [place] | [place] [address] | (transcatheter | | | | [address] | [phone] | aortic valve | | | | [phone] | | replacement), | | | | [...] stenosis, for which she underwent TAVR at [facility] in [place] 04/06/18, severe pulmonary hypertension, and increasing pedal [...] ant pedal edema. She was hospitalized at [facility] November for this, and I noted her [...] back for her next follow-up visit in [facility] 2 months. Review of Systems [...] No dysuria, hematuria, urinary urgency, hesitancy. No emr specialist di sorders. HEMATOLOGY/ONCOLOGY: No h/o bleeding disorders, [...] with BMI of 40.0-44.9, adult ([facility]) New onset left bundle branch block [...] | | | | | | [address] [place], [place] | | | | | | [id number] | | | | | | | [...]
--- OUTSIDE RECORDS SUMMARY | ~2019-04-13 | XMS | Encounter Summary ---
Demographics + + + | Address | [address] | | | [place] [address] | + + + | Home Phone | | + + + | Preferred Language | Unknown | + + + | Marital Status | | + + + | Catholic Affiliation | 1027 | + + + | Race | Unknown | + + + | Ethnic Group | Unknown | + + + Author + + + | Author | [facility] (Historical as of | | | 02-27-19) | + + + | Organization | [facility] (Historical as of | | | 02-27-19) | + + + | Address | Unknown | + + + | Phone | Unavailable | + + + Support + + + + + | Name | Relationship | Address | Phone | + + + + + | Libby Soriano | ECON | [address] | + | | | | [place] | | | | | [address] | | + + + + + Care Team Providers + +------+ + | Care Vegetable Farm Worker Name | Role | Phone | [...] 3 chronic kidney | | | | [place] [address] | | disease (HCC); | | | | [phone] | | Electrolyte | | | | [...] | | | | | | [address] [facility] | | | | | | [address] | | | | | | | [...] HEALTHCARE) | | + +--------+ + + + [...] | + + + + + | [facility] | [address] | [place] [address] | [phone] | | LABORATORY | Blvd. | | [...] | + + + + + | [facility] | [address] | [place] [address] | [phone] | | LABORATORY | Blvd. | | [...] | + + + + + | [facility] | [address] | [place] [address] | [phone] | | LABORATORY | Blvd. | | [...] + + + | [facility] | [address] | [place] [address] | [phone] | | LABORATORY | Blvd. | | [...]
--- OUTSIDE RECORDS SUMMARY | ~2019-04-13 | XMS | Encounter Summary ---
Demographics + + + | Address | [address] | | | [place] [address] | + + + | Home Phone | | + + + | Preferred Language | Unknown | + + + | Marital Status | | + + + | Confucianist Affiliation | 1027 | + + + | Race | Unknown | + + + | Ethnic Group | Unknown | + + + Author + + + | Author | [facility] (Historical as of | | | 02-27-19) | + + + | Organization | [facility] (Historical as of | | | 02-27-19) | + + + | Address | Unknown | + + + | Phone | Unavailable | + + + Support + + + + + | Name | Relationship | Address | Phone | + + + + + | Libby Soriano | ECON | [address] | + | | | | [place] | | | | | [address] | | + + + + + Care Team Providers + +------+ + | Care Asphalt Mixing Machine Operator Name | Role | Phone [...] | | | | | [place] [address] | | | | | | [phone] | | | +--------+ + + + [...] [place] | | | | | | [id number] | | | | | | | | +--------+---------+ + + + as of this encounter Visit Diagnoses Not on filein this encounter"
[~2019-04-13 04:11] MED LIST: ASPIRIN81 MG PO; B-12 DOTS500 MCG PO; CARTIA XT120 MG PO; COZAAR100 MG PO; DEMADEX10 MG PO; ELIQUIS5 M1 PO; ELIQUIS5 MG PO; FERROUS SULFAT324 MG PO; GLUCOPHAGE500 MG PO; HYDRALAZINE HCL10 MG PO; POTASSIUM CHLO10 ME2 PO; RANITIDINE HCL300 M1 PO; TORSEMIDE20 MG PO; VITAMIN C500 M1 PO; VITAMIN D1000 UNIT PO; ZYRTEC10 MG PO
--- OUTSIDE RECORDS SUMMARY | 2019-04-13 04:14 | XMS ---
PreManage Notification: DIMA GUIDO Security Demand Generation Manager Events No recent Security Events currently on file CRITERIA MET - [facility] - Has Care Guidelines CARE PROVIDERS OSCAR JACOBSON Internal Medicine: Cardiovascular 11/23/2018-Current Disease PHONE: Unknown [facility]-Current CEE [facility] PHONE: [phone] Jihan has no Care Guidelines for this patient. Care History Medical/Surgical 12/03/2018 [facility] - PATIENT VELASQUEZ HAS PCP DR KHAN. - PATIENT ARCHITECTURE INTERNSHIP IS DR PATEL IN [place]. 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 NEXT APT WILL BE WITH DR SAVAGE ON 08/01 E.DCecilio VISIT COUNT (12 MO.) [address] [facility] TOTAL 2 NOTE: Visits indicate total known visits. ED/UCC VISIT TRACKING (12 MO.) 04/13/2019 04:12 [facility] TYPE: Emergency COMPLAINT: - NOSE BLEED 11/15/2018 21:20 [facility] TYPE: Emergency COMPLAINT: - HYPONATERMIA INPATIENT VISIT TRACKING (12 MO.) 11/16/2018 00:04 [facility] TYPE: Medical Surgical COMPLAINT: - DECOMPENSATED HEART FAILURE/ HYPONATERMIA DIAGNOSES: - Hyperkalemia - watermelon inspector (current) use of oral hypoglycemic drugs - Chronic kidney disease, unspecified - Hyperkalemia - Pulmonary hypertension, unspecified - longterm (current) use of antithrombotics/antiplatelets - Allergy status to other drugs, medicaments and biological substances status - Gastro-esophageal reflux disease without esophagitis - Hypertensive heart and chronic kidney disease with heart failure and stage 1 through stage 4 chronic kidney disease, or unspecified chronic kidney disease - Other watermelon inspector (current) drug therapy - Obstructive sleep apnea (adult) (pediatric) - Other watermelon inspector (current) drug therapy - watermelon inspector (current) use of oral hypoglycemic drugs - Hypo-osmolality and hyponatremia - Allergy status to other drugs, medicaments and biological substances status - Type 2 diabetes mellitus with diabetic chronic kidney disease - Acute kidney failure, unspecified - Other specified abnormalities of plasma proteins - watermelon inspector (current) use of antithrombotics/antiplatelets - watermelon inspector (current) use of aspirin - Anemia in chronic kidney disease - Obesity, unspecified - Hypo-osmolality and hyponatremia - Acute on chronic diastolic (congestive) heart failure - Chronic atrial fibrillation - Obesity, unspecified - Obstructive sleep apnea (adult) (pediatric) - Body mass index (BMI) 36.0-36.9, adult - Gastro-esophageal reflux disease without esophagitis - Abnormal levels of other serum enzymes - Chronic kidney disease, unspecified - Anemia in chronic kidney disease - Chronic atrial fibrillation - longterm (current) use of aspirin - Presence of prosthetic heart valve - Abnormal levels of other serum enzymes - Other specified abnormalities of plasma proteins - Hypertensive heart and chronic kidney disease with heart failure and stage 1 through stage 4 chronic kidney disease, or unspecified chronic kidney disease - Type 2 diabetes mellitus with diabetic chronic kidney disease - Pulmonary hypertension, unspecified - Presence of prosthetic heart valve - Body mass index (BMI) 36.0-36.9, adult - Acute kidney failure, unspecified [email or web address]
[2019-04-13] MEDS ORDERED: BYSTOLIC5 MG PO (04:28)
[2019-04-13] MEDS ORDERED: AMOXICILLIN500 MG PO (05:04)
== END 2019-04-13 05:15 | disposition home or self-care (01) ==
LOC: ED 04:11
PROC: 2Y41X5Z Packing of Nasal Region using Packing Material (ICD-10-PCS; principal; 2019-04-13)
DX: R04.0 Epistaxis (principal); I10 Essential (primary) hypertension; E11.9 Type 2 diabetes mellitus without complications; Z88.8 Allergy status to other drugs, medicaments and biological substances; Z79.82 Long term (current) use of aspirin; Z79.899 Other long term (current) drug therapy
CPT/HCPCS: 30903; 99283-25

== ENCOUNTER 2019-04-16 11:00 | Emergency (ER) | payer MEDICARE ==
[~2019-04-16] VITALS: Ht 160 cm; Wt 93.0 kg
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
--- OUTSIDE RECORDS SUMMARY | ~2019-04-16 | XMS | Encounter Summary ---
Demographics + + + | Address | [address] | | | [place] [address] | + + + | Home Phone | | + + + | Preferred Language | Unknown | + + + | Marital Status | | + + + | Restorationist Affiliation | 1027 | + + + | Race | Unknown | + + + | Ethnic Group | Unknown | + + + Author + + + | Author | [facility] | | | and [place] | + + + | Organization | [facility] | | | and [place] | + + + | Address | Unknown | + + + | Phone | Unavailable | + + + Support + + + + + | Name | Relationship | Address | Phone | + + + + + | Libby Soriano | ECON | [address] | | | | | [place], [place] | | | | | [address] | | + + + + + Care Team Providers + +------+ + | Care Sales And Marketing Analyst Name | Role | Phone | + +------+ + PCP | Unavailable | + +------+ + Encounter Details +--------+ + + + + | Date | Type | Department | Care Team | Description | +--------+ + + + + | 01/28/ | Orders Only | [facility] | Conversion | | | 2019 | | NEPHROLOGY [place] | Transaction, | | | | | [address] | Provider Unknown | | | | | [address] [place] | | | | | | [address] | (Fax) | | | | | [phone] | | | +--------+ + + + + Social History + +-------+ +--------+------+ | Tobacco Use | Types | Packs/Day | Years | Date | | | | | Used | | + +-------+ +--------+------+ | Never Assessed | | | | | + +-------+ +--------+------+ + + + | Sex Assigned at [...] | 04/19/ | Office | Nephrology | Akoum, Pavel H, MD | | | 2018 | Visit | | [address] [place] | | | | | | [address] [facility] | | | | | | [address] | | | | | | | | +--------+---------+ + + + | 04/27/ | Office | Cardiology | Sher Max, | | | 2018 | Visit | | [address] | | | | | | [place] [facility], | | | | | | [place] [address] | | | | | | [phone] | | | | | | | | +--------+---------+ + + + documented as of this encounter Procedures + +--------+ [...] section. | + +--------+ + + + documented in this encounter Results Iron and Iron Binding Capacity (01/28/2019 [...] | | | + +---------+ + + documented in this encounter Visit Diagnoses Not on filedocumented in this encounter"
--- OUTSIDE RECORDS SUMMARY | ~2019-04-16 | XMS | Encounter Summary ---
Demographics + + + | Address | [address] | | | [place] [address] | + + + | Home Phone | | + + + | Preferred Language | Unknown | + + + | Marital Status | | + + + | Jainism Affiliation | 1027 | + + + [...] + | Libby Soriano | ECON | [address] | | | | | [place] | | | | | [address] | | + + + + + Care Team Providers + +------+ + | Care Metal Roofer Name | Role | Phone | + +------+ + | Rajiv Wise MD | PCP | | + +------+ + Encounter Details +--------+ + + + + | Date | Type | Department | Care Team | Description | +--------+ + + + + | 03/02/ | Orders Only | [facility] | Pavel Veras MD | | | 2019 | | NEPHROLOGY [place] | [address] [place] | | | | | [address] [place] | [address] [place], [place] | | | | | [address] [place], [place] | [address] | | | | | [address] | | | | | | [phone] | | | +--------+ + + + [...] 2018 | Visit | | [address] [facility] | | | | | | [address] [place] | | | | | | [address] | | | | | | | | +--------+---------+ + + + | 04/27/ | Office | Cardiology | [place], | | | 2019 | Visit | | [address] | | | | | | [place], | | | | | | [place] [address] | | | | | | [phone] | | | | | | | | +--------+---------+ + + + documented as of this encounter Visit Diagnoses Not on filedocumented in this encounter"
--- OUTSIDE RECORDS SUMMARY | ~2019-04-16 | XMS | Encounter Summary ---
Demographics + + + | Address | [address] | | | [place] [address] | + + + | Home Phone | | + + + | Preferred Language | Unknown | + + + | Marital Status | | + + + | Hoahaoism Affiliation | 1027 | + + + | Race | Unknown | + + + | Ethnic Group | Unknown | + + + Author + + + | Author | [email or web address] (Historical as of | | | 02-27-19) | + + + | Organization | [facility] (Historical as of | | | 02-27-19) | + + + | Address | Unknown | + + + | Phone | Unavailable | + + + Support + + + + + | Name | Relationship | Address | Phone | + + + + + | Libby Soriano | ECON | [address] | + | | | | [place] | | | | | [address] | | + + + + + Care Team Providers + +------+ + | Care Lvn Name | Role | Phone | + +------+ + | Rajiv Wise MD | PCP | | + +------+ + Encounter Details +--------+---------+ + + + | Date | Type | Department | Care Team | Description | +--------+---------+ + + + | 02/01/ | Office | [facility] | Pavel Veras MD | Acute kidney injury | | 2019 | Visit | [place] [address] | [address] | superimposed on | | | | [address] | [address] [place], [place] | chronic kidney | | | | [place] [address] | [address] | disease (HCC) | | | | [phone] | | (Primary Dx); Anemia | | [...] | | | | | deficiency | +--------+---------+ + + + Social History [...] + + + | Blood Pressure | 110/74 | 02/01/2019 1:21 PM PDT | + + + + | Pulse | 70 | 02/01/2019 1:21 PM PDT | + + + + | Temperature | - | - | + + + + | Respiratory Rate | - | - | + + + + | Oxygen Saturation | - | - | + + + + | Inhaled Oxygen | - | - | | Concentration | | | + + + + | Weight | 95.3 kg (210 lb 3.2 | 02/01/2019 1:21 PM PDT | | | oz) | | + + + + | Height | 157.5 cm (5' 2") | 02/01/2019 1:21 PM PDT | + + + + | Body Mass Index | 38.45 | 02/01/2019 1:21 PM PDT | + + + + in this encounter Instructions Patient Instructions - Pavel Veras MD - 02/01/2019 1:10 PM PDTDiscussions/Recommendatio ns: I discussed today with Ms. Soriano the meaning of her JESSICA and the interaction of alva t with her vital organs. I stressed the importance of keeping her BP & BG controlled and avoiding getting dehydra kerri if we are to have a chance at helping preserve her renal function. She showed good unde rstanding. I gave her instructions on how to chart her blood pressure in the appropriate manner at home. She is to call us if they fall outside of the optimal provided range. She will bring her sphygmomanometer for validation once a year. She will strictly abide by a low salt & low purine diet. She will avoid all kinds of NSAIDs for analgesia. Also: I increased her Torsemide to 20 mg twice a day. I increased her Potassium Chloride to 20 mEq daily. I sent her for a repeat BMP in 1 week. I sent her for another BMP & CBC in 4 weeks. She will report back to me her weight & home BP readings in 4 weeks. At that time, I kiran l decide whether any change to his vasoactive regimen is warranted. I asked her to elevate her legs for 1 hour twice a day. She knows that she still needs t o be active and ambulatory carefully as possible. I started her on Allopurinol at 100 mg daily; she understands to drink enough fluids for the first 7 days of the start date because of the risk of precipitating a gout attack durin g that period. she understands that such a risk will go down tremendously after that, which is the reason behind using this medication. She also understands the usual side effects of i t, that include but are not limited to: rash, abdominal discomfort, diarrhea, and rarely ang ioedema and/or BM suppression. I increased her Ferrous Sulfate 325 mg to 3 times a day. I warned her about its possible side effects including constipation; she voiced good understanding. She will F/U closely with the Cardiology team. She will F/U with your office regularly. She will have a RFP, Magnesium, CBC, Iron studies, Ferritin, uric acid, intact PTH befor e she comes back in 2 months.in this encounter Progress Notes Pavel Veras MD - 02/01/2019 1:10 PM PDTFormatting of this note may be different from e original. Patient Active Problem List Diagnosis Type 2 diabetes mellitus (HCC) Hypertension Sleep apnea syndrome Morbid obesity with BMI of 40.0-44.9, adult (HCC) Aortic stenosis, severe Atrial fibrillation (HCC) Moderate to severe pulmonary hypertension (HCC) Mild mitral stenosis Chronic kidney disease S/p TAVR (transcatheter aortic valve replacement), bioprosthetic New onset left bundle branch block (LBBB) COPD, moderate (HCC) Encounter for monitoring diuretic therapy Alkaline phosphatase elevation Acute kidney injury superimposed on chronic kidney disease (HCC) Bilateral leg edema Hyponatremia Electrolyte imbalance risk Hyperuricemia Anemia of chronic disease Chronic heart failure with preserved ejection fraction (HCC) Dear Dr Wise: I saw your patient Ms. Soriano in the office on an urgent basis today following a hospi talization. As you are familiar with her case, I will not state her past history in detail. Briefly, she is a 73 y.o. female patient with past history as delineated above; she is he re to F/U on her 11/2018 JESSICA. She was hospitalized on 11/15/18 with volume overload, ADHF, AK I, severe hypoNa; wt gain of 20 lbs in 5 weeks; she was diuresed & her Torsemide increased b ack to 40 mg daily. Her sCr & eGFR were 2.4 & 20 on admission, then 1.8 & 28 on 11/19/18 befo re discharge. Her sCr & eGFR were 1.2 & 47 on 09/30/18. Her sCr worsened to the 2.1-2.5 range by late 2018, which was again noted to be the case in mid October 2018 too. The patient has history of hypertension since her mid 50's, Diabetes Mellitus since her ; her BG and BP control has been reportedly adequate; she denies any history of prol onged exposure to NSAIDs or recent exposure to known nephrotoxins; she denies any recurrent nephrolithiasis or pyelonephritis; she tells me that she's had no history of urinary retenti on, gross hematuria or dysuria. she has mild urge incontinence symptoms. No symptoms of UTI. No history of passing kidney stones; she has no foamy urine either. her baseline Creatinin e is TBD. There is no family history of renal genetic diseases such as PKD. she says that she feels 'good ' today. she denies any blurred vision tinnitus, headache, f ever, chills, or cough. No nausea, vomiting, abdominal pain, diarrhea, melena, or hematoche mat. She has occasional a 'flicker' of a chest pain for which she F/U's with your office & the Cardiology team. No palpitation, dizziness, loss of consciousness, orthopnea, paroxysmal nocturnal dyspnea; she has chronic leg edema. She has occasional loss of balance (latest wa s 11/27/18 when she tripped); no LOC. The following portions of the patient's history were reviewed and updated as appropriate: a llergies, current medications, past medical history, past social history, past surgical hist ory, family history and problem list. *U/S from 11/16/18 from [facility]: no evidence of any significant renal anatomic abnormalities.* As in History of Present Illness & in Assessment. All the pertinent systems were reviewed a nd were otherwise negative. Current Outpatient Prescriptions Medication Sig Dispense Refill apixaban (ELIQUIS) 5 MG tablet Take 0.5 tablets by mouth 2 (two) times daily. (Patient taking differently: Take 5 mg by mouth 2 (two) times daily.) 180 tablet 3 ascorbic acid (VITAMIN C) 500 MG [...] 2 (two) ti mes daily with meals. fluticasone (FLONASE) 50 MCG/ACT nasal 1 spray by Each Nare route daily. loratadine (CLARITIN) 10 MG tablet Take 10 mg by mouth daily. potassium chloride (K-DUR) 10 MEQ tablet Take 10 mEq by mouth daily. ranitidine (ZANTAC) 300 MG tablet Take 300 mg by mouth nightly. torsemide (DEMADEX) 20 MG tablet Take 20 mg by mouth 2 (two) times daily. No current facility-administered medications for this visit. Physical Exam: BP 110/74 (BP Location: Left upper arm, Patient Position: Sitting) | Pulse 70 | Ht 1.575 m (5' 2") | Wt 95.3 kg (210 lb 3.2 oz) | BMI 38.45 kg/m General appearance: Pleasant, not in acute distress. Neck: Supple without tracheal deviation or jugular venous distension. Head and ENT: Head is atraumatic. The oropharynx is without erythema or thrush. Eyes: Anicteric. The extraocular muscle movements are normal. Lungs: Clear to auscultation bilaterally. There are no wheezes. Heart: Regular rate and rhythm without any rub, gallop. Grade 3 systolic murmur best at th e RUSB. Abdominal exam: Soft and nontender with normal bowel sounds. Musculoskeletal: No costovertebral angle tenderness bilaterally. Extremities: Warm to touch with 2+ leg edema, more prominent on the right. There is no cy anosis. Skin: There are no rashes, petechiae, or ecchymosis. Neurological: Awake, alert, and oriented to time, place, and person. Normal gross motor po wer. There is no asterixis. Psychiatric: The patient s behavior is normal. Judgment and thought content are normal. Lab Results Component Value Date BUN 47 (A) 01/28/2019 CREATININE 1.71 (A) 01/28/2019 EGFR 29 (A) 01/28/2019 NA 131 (A) 01/28/2019 K 4.0 01/28/2019 CL 88 (A) 01/28/2019 CO2 28 01/28/2019 CA 9.4 01/28/2019 PHOS 3.9 01/28/2019 MG 2.0 01/28/2019 ALB 4.2 01/28/2019 HGB 9.9 (A) 12/14/2018 URICACID 10.7 (A) 12/14/2018 WBC 5.8 12/14/2018 HCT 29.9 (A) 12/14/2018 FERRITIN 140.4 01/28/2019 LABIRON 11.4 (A) 01/28/2019 LABPROT 219.4 (A) 12/15/2018 Assessment: Ms. Soriano is a 73 y.o. female patient with stage 2 JESSICA on top of her stage III CKD on a background of right heart failure & severe pulmonary hypertension. The most likely pathol ogy here is that of vasomotor hemodynamic injury. She has the cardiorenal syndrome. Her CKD was likely caused by the longstanding diabetes & hypertension. RENAL FUNCTION: Severely worse GFR at this time, as above BLOOD PRESSURE: okay BLOOD SUGAR: Reports it controlled ELECTROLYTES: Severe hyponatremia is better: mild now ANEMIA: mild VITAMIN D: Deficiency is being treated PARATHYROID HORMONE: Mildly up URIC ACID: Severe hyperuricemia PROTEINURIA: Very mild URINALYSIS: No UTI or hematuria VOLUME STATUS: Euvolumic. Discussions/Recommendations: I discussed today with Ms. Soriano the meaning of her JESSICA and the interaction of alva t with her vital organs. I stressed the importance of keeping her BP & BG controlled and avoiding getting dehydra kerri if we are to have a chance at helping preserve her renal function. She showed good unde rstanding. I gave her instructions on how to chart her blood pressure in the appropriate manner at home. She is to call us if they fall outside of the optimal provided range. She will bring her sphygmomanometer for validation once a year. She will strictly abide by a low salt & low purine diet. She will avoid all kinds of NSAIDs for analgesia. Also: I increased her Torsemide to 20 mg twice a day. I increased her Potassium Chloride to 20 mEq daily. I sent her for a repeat BMP in 1 week. I sent her for another BMP & CBC in 4 weeks. She will report back to me her weight & home BP readings in 4 weeks. At that time, I kiran l decide whether any change to his vasoactive regimen is warranted. I asked her to elevate her legs for 1 hour twice a day. She knows that she still needs t o be active and ambulatory carefully as possible. I started her on Allopurinol at 100 mg daily; she understands to drink enough fluids for the first 7 days of the start date because of the risk of precipitating a gout attack durin g that period. she understands that such a risk will go down tremendously after that, which is the reason behind using this medication. She also understands the usual side effects of i t, that include but are not limited to: rash, abdominal discomfort, diarrhea, and rarely ang ioedema and/or BM suppression. I increased her Ferrous Sulfate 325 mg to 3 times a day. I warned her about its possible side effects including constipation; she voiced good understanding. She will F/U closely with the Cardiology team. She will F/U with your office regularly. She will have a RFP, Magnesium, CBC, Iron studies, Ferritin, uric acid, intact PTH befor e she comes back in [address] Wise for the opportunity to see this patient in F/U today an urgent basis today. Please do not hesitate to call me at any time with questions or concerns. Truly yours, Pavel Veras MD [facility] Cc: Barbara Quiroz DANTE Wolf in this encounter Plan of Treatment +--------+---------+ + + + | Date | Type | Specialty | Care Team | Description | +--------+---------+ + + + | 04/19/ | Office | Nephrology | Pavel Veras MD | | | 2019 | Visit | | [address] | | | | | | [address] [place], [place] | | | | | | [address] | | | | | | | | +--------+---------+ + + + as of this encounter Visit Diagnoses + + | Diagnosis | + + | Acute kidney injury superimposed on chronic kidney disease (HCC) - Primary | + + | Anemia of chronic disease | + + | Anemia of other chronic disease | + + | Bilateral leg edema | + + | Edema | + + | Electrolyte imbalance risk | + + | Other specified conditions influencing health status | + + | Hyperuricemia | + + | Other abnormal blood chemistry | + + | Encounter for monitoring diuretic therapy | + + | Encounter for therapeutic drug monitoring | + + | Iron deficiency | + + | Other disorders of iron metabolism | + +
--- OUTSIDE RECORDS SUMMARY | ~2019-04-16 | XMS | Clinical Summary ---
Demographics + + + | Address | [address] | | | [place] [address] | + + + | Home Phone | | + + + | Preferred Language | Unknown | + + + | Marital Status | | + + + | Latter-Day Affiliation | 1027 | + + + | Race | Unknown | + + + | Ethnic Group | Unknown | + + + Author + + + | Author | [facility] | | | and [place] | + + + | Organization | [facility] | | | and [place] | + + + | Address | Unknown | + + + | Phone | Unavailable | + + + Support + + + + + | Name | Relationship | Address | Phone | + + + + + | Libby Soriano | ECON | [address] | | | | | [place], [place] | | | | | [address] | | + + + + + Care Team Providers + +------+ + | Care Reach Lift Truck Driver Name | Role | Phone | + [...] 2018 | Visit | | [address] [facility] | | | | | | [address] [place] | | | | | | [address] | | | | | | | | +--------+---------+ + + + | 04/27/ | Office | Cardiology | [place], | | | 2018 | Visit | | [address] | | | | | | [place], | | | | | | [place] [address] | | | | | | [phone] | | | | | | | [...] | | | LAB | | | [facility] | | | | | + + [...] +--------+ +---------+--------+ | MEDICARE | MEDICA | [id number] | | [phone] | | Medica | [...] Person | Self | [birth year] | [address] | | Shawna | verna/[place] | | 1945 | [phone] | [place] | | | marin | | | [address] (Home) | [address] | + +--------+ +--------+ + + Advance Directives Patient has advance care planning documents on file. For more information, please contact:[facility] [place] [address]
--- OUTSIDE RECORDS SUMMARY | ~2019-04-16 | XMS | Encounter Summary ---
Demographics + + + | Address | [address] | | | [place] [address] | + + + | Home Phone | | + + + | Preferred Language | Unknown | + + + | Marital Status | | + + + | Denominational Affiliation | 1027 | + + + | Race | Unknown | + + + | Ethnic Group | Unknown | + + + Author + + + | Author | [facility] | | | and [place] | + + + | Organization | [facility] | | | and [place] | + + + | Address | Unknown | + + + | Phone | Unavailable | + + + Support + + + + + | Name | Relationship | Address | Phone | + + + + + | Libby Soriano | ECON | [address] | | | | | [place] | | | | | [address] | | + + + + + Care Team Providers + +------+ + | Care Punch Card Operator Name | Role | Phone | + +------+ + | Rajiv Wise MD | PCP | | + +------+ + Encounter Details +--------+ + + + + | Date | Type | Department | Care Team | Description | +--------+ + + + + | 02/26/ | Orders Only | [facility] | Barbara Wolf | 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 | | | | [address] [place] [address] | [place] [address] | kidney disease | | | | [place], [place] | [phone] | (HCC); Chronic | | | | [address] | | kidney disease, | | | | [phone] | | stage III (moderate) | | [...] elsewhere | +--------+ + + + + Social [...] | | 2019 | Visit | | [address] [facility] | | | | | | [address] [place], [place] | | | | | | [address] | | | | | | | | +--------+---------+ + + + | 04/27/ | Office | Cardiology | Sher Max, | | | 2018 | Visit | | [address] | | | | | | [place], | | | | | | [place] [address] | | | | | | [phone] | | | | | | | | +--------+---------+ + + + + +--------+ + + | Name | Priori | Associated Diagnoses | Order Schedule | | | ty | | | + +--------+ + + | Basic Metabolic Panel | Routin | Type 2 diabetes | Expected: | | | e | mellitus with | 10/22/2018, Expires: | | | | diabetic chronic | 04/10/2020 | | | | kidney disease (HCC) | | | | | Chronic kidney | | | | | disease, stage III | | | | | (moderate) (HCC) | | | | | Encounter for | | | | | therapeutic drug | | | | | level monitoring | | + +--------+ + + | Comprehensive Metabolic Panel | Routin | Type 2 diabetes | Expected: | | | e | mellitus with | 11/09/2018, Expires: | | | | diabetic chronic | 10/27/2019 | | | | kidney disease (HCC) | | | | | Chronic kidney | | | | | disease, stage III | | | | | (moderate) (HCC) | | + +--------+ + + | CBC with Differential | Routin | Essential | Expected: | | | e | (primary) | 12/14/2018, Expires: | | | | hypertension | 12/01/2019 | | | | Chronic kidney | | | | | disease, stage III | | | | | (moderate) (HCC) | | | | | Other specified | | | | | personal risk | | | | | factors, not | | | | | elsewhere classified | | | | | Chronic kidney | | | | | disease, stage IV | | | | | (severe) (HCC) | | + +--------+ + + | Basic Metabolic Panel | Routin | Chronic kidney | Expected: | | | e | disease, stage III | 02/08/2019, Expires: | | | | (moderate) ([facility]) | 02/02/2020 | + +--------+ + + | Basic Metabolic Panel | Routin | Chronic kidney | Expected: | | | e | disease, stage III | 03/01/2019, Expires: | | | | (moderate) ([facility]) | 02/02/2020 | + +--------+ + + | CBC with Differential | Routin | Chronic kidney | Expected: | | | e | disease, stage III | 03/01/2019, Expires: | | | | (moderate) ([facility]) | 02/02/2020 | + +--------+ + + | Renal Function Panel | Routin | Chronic kidney | Expected: | | | e | disease, stage III | 04/04/2019, Expires: | | | | (moderate) ([facility]) | 02/02/2020 | | | | Anemia in other | | | | | chronic diseases | | | | | classified elsewhere | | + +--------+ + + | Magnesium | Routin | Chronic kidney | Expected: | | | e | disease, stage III | 04/04/2019, Expires: | | | | (moderate) ([facility]) | 02/02/2020 | | | | Anemia in other | | | | | chronic diseases | | | | | classified elsewhere | | + +--------+ + + | CBC with Differential | Routin | Chronic kidney | Expected: | | | e | disease, stage III | 04/04/2019, Expires: | | | | (moderate) ([facility]) | 02/02/2020 | | | | Anemia in other | | | | | chronic diseases | | | | | classified elsewhere | | + +--------+ + + | Ferritin | Routin | Chronic kidney | Expected: | | | e | disease, stage III | 04/04/2019, Expires: | | | | (moderate) ([facility]) | 02/02/2020 | | | | Anemia in other | | | | | chronic diseases | | | | | classified elsewhere | | + +--------+ + + | Uric Acid | Routin | Chronic kidney | Expected: | | | e | disease, stage III | 04/04/2019, Expires: | | | | (moderate) ([facility]) | 02/02/2020 | | | | Anemia in other | | | | | chronic diseases | | | | | classified elsewhere | | + +--------+ + + | Parathyroid Hormone, Intact | Routin | Chronic kidney | Expected: | | | e | disease, stage III | 04/04/2019, Expires: | | | | (moderate) ([facility]) | 02/02/2020 | | | | Anemia in other | | | | | chronic diseases | | | | | classified elsewhere | | + +--------+ + + documented as of this encounter Visit Diagnoses + + | Diagnosis | + + | Type 2 diabetes mellitus with diabetic chronic kidney disease (HCC) Type II or | | unspecified type diabetes mellitus with renal manifestations, not stated as uncontrolled | + + | Chronic kidney disease, stage III (moderate) (HCC) Chronic kidney disease, Stage III | | (moderate) | + + | Encounter for therapeutic drug level monitoring Encounter for therapeutic drug | | monitoring | + + | Essential (primary) hypertension Unspecified essential hypertension | + + | Other specified personal risk factors, not elsewhere classified | + + | Chronic kidney disease, stage IV (severe) (HCC) Chronic kidney disease, Stage IV | | (severe) | + + | Anemia in other chronic diseases classified elsewhere | + + documented in this encounter"
--- OUTSIDE RECORDS SUMMARY | ~2019-04-16 | XMS | Encounter Summary ---
Demographics + + + | Address | [address] | | | [place] [address] | + + + | Home Phone | | + + + | Preferred Language | Unknown | + + + | Marital Status | | + + + | Bahai Affiliation | 1027 | + + + | Race | Unknown | + + + | Ethnic Group | Unknown | + + + Author + + + | Author | [employer] [facility] (Historical as of | | | 02-27-19) | + + + | Organization | [facility] (Historical as of | | | 02-27-19) | + + + | Address | Unknown | + + + | Phone | Unavailable | + + + Support + + + + + | Name | Relationship | Address | Phone | + + + + + | Libby Soriano | ECON | [address] | + | | | | [place] | | | | | [address] | | + + + + + Care Team Providers + +------+ + | Care Pediatric Neurologist Name | Role | Phone | + +------+ + | Rajiv Wise MD | PCP | | + +------+ + Encounter Details +--------+ + + + + | Date | Type | Department | Care Team | Description | +--------+ + + + + | 02/25/ | Telephone | [facility] | Fid[place], | | | 2019 | | [place] [address] | | | | | [address] | | | | | | [place] [address] | | | | | | [phone] | | | +--------+ + + + [...] | | | | | | [address] [place] | | | | | | [id number] | | | | | | | | +--------+---------+ + + + as of this encounter Visit Diagnoses Not on filein this encounter"
--- OUTSIDE RECORDS SUMMARY | ~2019-04-16 | XMS | Encounter Summary ---
Demographics + + + | Address | [address] | | | [place] [address] | + + + | Home Phone | | + + + | Preferred Language | Unknown | + + + | Marital Status | | + + + | Presybeterian Affiliation | 1027 | + + + | Race | Unknown | + + + | Ethnic Group | Unknown | + + + Author + + + | Author | [facility] | | | and [place] | + + + | Organization | [facility] | | | and [place] | + + + | Address | Unknown | + + + | Phone | Unavailable | + + + Support + + + + + | Name | Relationship | Address | Phone | + + + + + | Libby Soriano | ECON | [address] | | | | | [place] | | | | | [address] | | + + + + + Care Team Providers + +------+ + | Care Environmental Health Manager Name | Role | Phone | + +------+ + | Rajiv Wise MD | PCP | | + +------+ + Encounter Details +--------+ + + + + | Date | Type | Department | Care Team | Description | +--------+ + + + + | 02/22/ | Orders Only | [facility] | Sher Max, | | | 2019 | | CARDIOLOGY [place] | [address] | | | | | [address] | [place], | | | | | [place], [place] | [place] [address] | | | | | [address] | [phone] | | | | | [phone] | | | +--------+ + + + [...] 2018 | Visit | | [address] [facility] | | | | | | [address] [place], [place] | | | | | | [address] | | | | | | | | +--------+---------+ + + + | 04/27/ | Office | Cardiology | Sher Max, | | | 2018 | Visit | | [address] | | | | | | [place], | | | | | | [place] [address] | | | | | | [phone] | | | | | | | | +--------+---------+ + + + documented as of this encounter Visit Diagnoses Not on filedocumented in this encounter"
--- OUTSIDE RECORDS SUMMARY | ~2019-04-16 | XMS | Clinical Summary ---
Demographics + + + | Address | [address] | | | [place] [address] | + + + | Home Phone | | + + + | Preferred Language | Unknown | + + + | Marital Status | | + + + | Taoism Affiliation | 1027 | + + + | Race | Unknown | + + + | Ethnic Group | Unknown | + + + Author + + + | Author | [facility] (Historical as of | | | 02-27-19) | + + + | Organization | [facility] (Historical as of | | | 02-27-19) | + + + | Address | Unknown | + + + | Phone | Unavailable | + + + Support + + + + + | Name | Relationship | Address | Phone | + + + + + | Libby Soriano | ECON | [address] | + | | | | [place] | | | | | [address] | | + + + + + Care Team Providers + +------+ + | Care Manager Lighting Name | Role | Phone | + [...] | | | | | | [address] [place], [place] | | | | | | [address] | | | | | | | [...] + + + | [facility] | [address] | [place] [address] | [phone] | | LABORATORY | Blvd[address] | | [...] + + + | [facility] | [address] | [place] [address] | [phone] | | LABORATORY | Blvd. | | [...] + + + | [facility] | [address] | [place] [address] | [phone] | | LABORATORY | Blvd. | | [...] + + + | [facility] | [address] | [place] [address] | [phone] | | LABORATORY | Blvd. | | [...] +------+-------+ + | MEDICARE | MEDICA | [id number] | | | [address] | | | RE | | | | [place] [phone] | | | IP-OP | | | | | + +--------+ +------+-------+ + | UNITED HEALTHCARE | UNITED | [id number] | | | | | | | [...] | Self | [birth year] Home: | [address] | | MARISSA gillespie/Amadeo | | 1945 | [phone] [place] | | | marin | | | 2019 | [address] | + +--------+ +--------+ + +
--- OUTSIDE RECORDS SUMMARY | ~2019-04-16 | XMS | Encounter Summary ---
Demographics + + + | Address | [address] | | | [place] [address] | + + + | Home Phone | | + + + | Preferred Language | Unknown | + + + | Marital Status | | + + + | Congregational Affiliation | 1027 | + + + | Race | Unknown | + + + | Ethnic Group | Unknown | + + + Author + + + | Author | [facility] | | | and [place] | + + + | Organization | [facility] | | | and [place] | + + + | Address | Unknown | + + + | Phone | Unavailable | + + + Support + + + + + | Name | Relationship | Address | Phone | + + + + + | Libby Soriano | ECON | [address] | | | | | [place] | | | | | [address] | | + + + + + Care Team Providers + +------+ + | Care Cooler Servicer Name | Role | Phone | + +------+ + | Rajiv Wise MD | PCP | | + +------+ + Encounter Details +--------+ + + + + | Date | Type | Department | Care Team | Description | +--------+ + + + + | 02/01/ | Orders Only | [facility] | Pavel Veras MD | | | 2019 | | NEPRHOLOGY [place] | [address] [place] | | | | | [address] | [address] [place], [place] | | | | | [address] [place], [place] | [address] | | | | | [address] | | | | | | [phone] | | | +--------+ + + + [...] 2018 | Visit | | [address] [facility] | | | | | | [address] [place] | | | | | | [address] | | | | | | | | +--------+---------+ + + + | 04/27/ | Office | Cardiology | Sher Max, | | | 2018 | Visit | | [address] | | | | | | [place], | | | | | | [place] [address] | | | | | | [phone] | | | | | | | | +--------+---------+ + + + documented as of this encounter Visit Diagnoses Not on filedocumented in this encounter"
--- OUTSIDE RECORDS SUMMARY | ~2019-04-16 | XMS | Encounter Summary ---
Demographics + + + | Address | [address] | | | [place] [address] | + + + | Home Phone | | + + + | Preferred Language | Unknown | + + + | Marital Status | | + + + | Zoroastrianism Affiliation | 1027 | + + + | Race | Unknown | + + + | Ethnic Group | Unknown | + + + Author + + + | Author | [facility] | | | and [place] | + + + | Organization | [facility] | | | and [place] | + + + | Address | Unknown | + + + | Phone | Unavailable | + + + Support + + + + + | Name | Relationship | Address | Phone | + + + + + | Libby Soriano | ECON | [address] | | | | | [place] | | | | | [address] | | + + + + + Care Team Providers + +------+ + | Care Premium Cancellation Clerk Name | Role | Phone | + +------+ + | Rajiv Wise MD | PCP | | + +------+ + Encounter Details +--------+ + + + + | Date | Type | Department | Care Team | Description | +--------+ + + + + | 02/26/ | Orders Only | [facility] | Barbara Wolf | 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 | | | | [address] | [place] [address] | kidney disease | | | | [place], [place] | [phone] | (HCC); Chronic | | | | [address] | | kidney disease, | | | | [phone] | | stage III (moderate) | | [...] 2019 | Visit | | [facility] [address] [facility] | | | | | | [address] [place], [place] | | | | | | [address] | | | | | | | | +--------+---------+ + + + | 04/27/ | Office | Cardiology | Sher Max, | | | 2018 | Visit | | [address] | | | | | | [place], | | | | | | [place] [address] | | | | | | [phone] | | | | | | | [...] 02/08/2019, Expires: | | | | (moderate) ([facility]) | 02/02/2020 | + +--------+ + + | Basic Metabolic Panel | Routin | Chronic kidney | Expected: | | | e | disease, stage III | 03/01/2019, Expires: | | | | (moderate) ([facility]) | 02/02/2020 | + +--------+ + + | CBC with Differential | Routin | Chronic kidney | Expected: | | | e | disease, stage III | 03/01/2019, Expires: | | | | (moderate) ([facility]) | 02/02/2020 | + +--------+ + + | Renal Function Panel | Routin | Chronic kidney | Expected: | | | e | disease, stage III | 04/04/2019, Expires: | | | | (moderate) ([facility]) | 02/02/2020 | | | | Anemia in other | | | | | chronic diseases | | | | | classified elsewhere | | + +--------+ + + | Magnesium | Routin | Chronic kidney | Expected: | | | e | disease, stage III | 04/04/2019, Expires: | | | | (moderate) ([facility]) | 02/02/2020 | | | | Anemia in other | | | | | chronic diseases | | | | | classified elsewhere | | + +--------+ + + | CBC with Differential | Routin | Chronic kidney | Expected: | | | e | disease, stage III | 04/04/2019, Expires: | | | | (moderate) ([facility]) | 02/02/2020 | | | | Anemia in other | | | | | chronic diseases | | | | | classified elsewhere | | + +--------+ + + | Ferritin | Routin | Chronic kidney | Expected: | | | e | disease, stage III | 04/04/2019, Expires: | | | | (moderate) ([facility]) | 02/02/2020 | | | | Anemia in other | | | | | chronic diseases | | | | | classified elsewhere | | + +--------+ + + | Uric Acid | Routin | Chronic kidney | Expected: | | | e | disease, stage III | 04/04/2019, Expires: | | | | (moderate) ([facility]) | 02/02/2020 | | | | Anemia in other | | | | | chronic diseases | | | | | classified elsewhere | | + +--------+ + + | Parathyroid Hormone, Intact | Routin | Chronic kidney | Expected: | | | e | disease, stage III | 04/04/2019, Expires: | | | | (moderate) ([facility]) | 02/02/2020 | | | | [...]
--- OUTSIDE RECORDS SUMMARY | ~2019-04-16 | XMS | Encounter Summary ---
Demographics + + + | Address | [address] | | | [place] [address] | + + + | Home Phone [...] + + + | Author | [facility] | | | and [place] | + + + | Organization | [facility] | | | and [place] | + + + | Address | Unknown | + + + | Phone | Unavailable | + + + Support + + + + + | Name | Relationship | Address | Phone | + + + + + | Libby Soriano | ECON | [address] | | | | | [place], [place] | | | | | [address] | | + + + + + Care Team Providers + +------+ + | Care Skiver Machine Operator Name | Role | Phone | + +------+ + PCP | Unavailable | + +------+ + Encounter Details +--------+ + + + + | Date | Type | Department | Care Team | Description | +--------+ + + + + | 01/28/ | Orders Only | [facility] | Pavel Veras MD | | | 2019 | | NEPHROLOGY [place] | [address] [place] | | | | | [address] [place] | [address] [place], [place] | | | | | [address] [place], [place] | [address] | | | | | [address] | | | | | | [phone] | | | +--------+ + + + [...] 2018 | Visit | | [address] [facility] | | | | | | [address] [place], [place] | | | | | | [address] | | | | | | | | +--------+---------+ + + + | 04/27/ | Office | Cardiology | Sher Max, | | | 2018 | Visit | | [address] | | | | | | [place], | | | | | | [place] [address] | | | | | | [phone] | | | | | | | [...] + + documented in this encounter Results Parathyroid Hormone, Intact (01/28/2019 11:30 PDT) + [...] | | | LAB | | | [facility] | | | | | + + [...]
--- OUTSIDE RECORDS SUMMARY | ~2019-04-16 | XMS | Encounter Summary ---
Demographics + + + | Address | [address] | | | [place] [address] | + + + | Home Phone | | + + + | Preferred Language | Unknown | + + + | Marital Status | | + + + | Judaism Affiliation | 1027 | + + + | Race | Unknown | + + + | Ethnic Group | Unknown | + + + Author + + + | Author | [facility] (Historical as of | | | 02-27-19) | + + + | Organization | [facility] (Historical as of | | | 02-27-19) | + + + | Address | Unknown | + + + | Phone | Unavailable | + + + Support + + + + + | Name | Relationship | Address | Phone | + + + + + | Libby Soriano | ECON | [address] | | | | | [place] | | | | | [address] | | + + + + + Care Team Providers + +------+ + | Care Electric Shovel Operator Name | Role | Phone | [...] + + | 02/22/ | Office | [facility] | Sher Max, | Aortic stenosis, | | 2018 | Visit | Cardiology [place] | [address] | severe (Primary Dx); | | | | [address] | [place], | S/p TAVR | | | | [place] | [place] [address] | (transcatheter | | | | [address] | [phone] | aortic valve | | | | [phone] | | replacement), | | | | [...] stenosis, for which she underwent TAVR at [facility] in [place] 04/06/18, severe pulmonary hypertension, and increasing pedal [...] ant pedal edema. She was hospitalized at [facility] November for this, and I noted her [...] back for her next follow-up visit in [facility] 2 months. Review of Systems CONSTITUTIONAL: [...] No dysuria, hematuria, urinary urgency, hesitancy. No assembly supervisor di sorders. HEMATOLOGY/ONCOLOGY: No h/o bleeding disorders, [...] Morbid obesity with BMI of 40.0-44.9, adult ([facility]) New onset left bundle branch block (LBBB) [...] | | | | | | [address] [place], [place] | | | | | | [address] | | | | | | | [...]
--- OUTSIDE RECORDS SUMMARY | ~2019-04-16 | XMS | Encounter Summary ---
Demographics + + + | Address | [address] | | | [place] [address] | + + + | Home Phone | | + + + | Preferred Language | Unknown | + + + | Marital Status | | + + + | Cheondoism Affiliation | 1027 | + + + | Race | Unknown | + + + | Ethnic Group | Unknown | + + + Author + + + | Author | [facility] (Historical as of | | | 02-27-19) | + + + | Organization | [facility] (Historical as of | | | 02-27-19) | + + + | Address | Unknown | + + + | Phone | Unavailable | + + + Support + + + + + | Name | Relationship | Address | Phone | + + + + + | Libby Soriano | ECON | [address] | | | | | [place], [place] | | | | | [address] | | + + + + + Care Team Providers + +------+ + | Care Clinical Systems Analyst Name | Role | Phone | [...] | | | | | [place] [address] | | | | | | [phone] | | | +--------+ + + + [...] | | | | | | [address] [place], [place] | | | | | | [address] | | | | | | | | +--------+---------+ + + + as of this encounter Visit Diagnoses Not on filein this encounter"
--- OUTSIDE RECORDS SUMMARY | ~2019-04-16 | XMS | Encounter Summary ---
Demographics + + + | Address | [address] | | | [place] [address] | + + + | Home Phone | | + + + | Preferred Language | Unknown | + + + | Marital Status | | + + + | Anabaptism Affiliation | 1027 | + + + | Race | Unknown | + + + | Ethnic Group | Unknown | + + + Author + + + | Author | [facility] | | | and [place] | + + + | Organization | [facility] | | | and [place] | + + + | Address | Unknown | + + + | Phone | Unavailable | + + + Support + + + + + | Name | Relationship | Address | Phone | + + + + + | Libby Soriano | ECON | [address] | | | | | [place] | | | | | [address] | | + + + + + Care Team Providers + +------+ + | Care Industrial Safety And Health Specialist Name | Role | Phone | + +------+ + | Rajiv Wise MD | PCP | | + +------+ + Encounter Details +--------+ + + + + | Date | Type | Department | Care Team | Description | +--------+ + + + + | 03/09/ | Orders Only | [facility] | Pavel Veras MD | Chronic kidney | | 2019 | | NEPHROLOGY [place] | [address] [place] | disease, stage III | | | | [address] [place] | [address] [place], [place] | (moderate) (HCC); | | | | [address] [place], [place] | [address] | Anemia in other | | | | [address] | | chronic diseases | | | | [phone] | | classified elsewhere | +--------+ + [...] | | | | | | [address] [place] | | | | | | [address] | | | | | | | | +--------+---------+ + + + | 04/27/ | Office | Cardiology | Sher Max, | | | 2018 | Visit | | [address] | | | | | | [place], | | | | | | [place] [address] | | | | | | [phone] | | | | | | | | +--------+---------+ + + + + +--------+ + + | Name | Priori | Associated Diagnoses | Order Schedule | | | ty | | | + +--------+ + + | Iron and Iron Binding Capacity | Routin | Chronic kidney | Expected: | | | e | disease, stage III | 04/04/2019, Expires: | | | | (moderate) (HCC) | 02/02/2020 | | | | Anemia in other | | | | | chronic diseases | | | | | classified elsewhere | | + +--------+ + + documented as of this encounter Visit Diagnoses + + | Diagnosis | + + | Chronic kidney disease, stage III (moderate) (HCC) Chronic kidney disease, Stage III | | (moderate) | + + | Anemia in other chronic diseases classified elsewhere | + + documented in this encounter"
--- OUTSIDE RECORDS SUMMARY | ~2019-04-16 | XMS | Encounter Summary ---
Demographics + + + | Address | [address] | | | [place] [address] | + + + | Home Phone | | + + + | Preferred Language | Unknown | + + + | Marital Status | | + + + | Hindu Affiliation | 1027 | + + + | Race | Unknown | + + + | Ethnic Group | Unknown | + + + Author + + + | Author | [facility] | | | and [place] | + + + | Organization | [facility] | | | and [place] | + + + | Address | Unknown | + + + | Phone | Unavailable | + + + Support + + + + + | Name | Relationship | Address | Phone | + + + + + | Libby Soriano | ECON | [address] | | | | | [place] | | | | | [address] | | + + + + + Care Team Providers + +------+ + | Care Shower Enclosure Installer Name | Role | Phone | + +------+ + | Rajiv Wise MD | PCP | | + +------+ + Encounter Details +--------+ + + + + | Date | Type | Department | Care Team | Description | +--------+ + + + + | 03/09/ | Orders Only | [facility] | Pavel Veras MD | Chronic kidney | | 2019 | | NEPHROLOGY [place] | [address] [place] | disease, stage III | | | | [address] [place] | [address] [place], [place] | (moderate) (HCC); | | | | [address] [place], [place] | [address] | Anemia in other | | | | [address] | | chronic diseases | | | | [phone] | | classified elsewhere | +--------+ + [...] 2018 | Visit | | [address] [facility] | | | | | | [address] [place] | | | | | | [address] | | | | | | | | +--------+---------+ + + + | 04/27/ | Office | Cardiology | Sher Max, | | | 2018 | Visit | | MD [address] | | | | | | [place], | | | | | | [place] [address] | | | | | | [phone] | | | | | | | [...]
--- OUTSIDE RECORDS SUMMARY | ~2019-04-16 | XMS | Encounter Summary ---
Demographics + + + | Address | [address] | | | [place] [address] | + + + | Home Phone | | + + + | Preferred Language | Unknown | + + + | Marital Status | | + + + | Mormonism Affiliation | 1027 | + + + | Race | Unknown | + + + | Ethnic Group | Unknown | + + + Author + + + | Author | [facility] [facility] (Historical as of | | | 02-27-19) | + + + | Organization | [facility] (Historical as of | | | 02-27-19) | + + + | Address | Unknown | + + + | Phone | Unavailable | + + + Support + + + + + | Name | Relationship | Address | Phone | + + + + + | Libby Soriano | ECON | [address] | | | | | [place] | | | | | [address] | | + + + + + Care Team Providers + +------+ + | Care Application Support Administrator Name | Role | Phone | + [...] + + | 02/22/ | Office | [facility] | Sher Max, | Aortic stenosis, | | 2018 | Visit | Cardiology [place] | [address] | severe (Primary Dx); | | | | [address] | [place], | S/p TAVR | | | | [place] | [place] [address] | (transcatheter | | | | [address] | [phone] | aortic valve | | | | [phone] | | replacement), | | | | [...] stenosis, for which she underwent TAVR at [facility] in [place] 04/06/18, severe pulmonary hypertension, and increasing pedal [...] ant pedal edema. She was hospitalized at [facility] November for this, and I [...] back for her next follow-up visit in [facility] 2 months. Review of Systems CONSTITUTIONAL: H/o [...] No dysuria, hematuria, urinary urgency, hesitancy. No digital design engineer di sorders. HEMATOLOGY/ONCOLOGY: No h/o bleeding disorders, [...] Morbid obesity with BMI of 40.0-44.9, adult ([facility]) New onset left bundle branch [...] | | | | | | [address] [place], [place] | | | | | | [address] | | | | | | | [...]
--- OUTSIDE RECORDS SUMMARY | ~2019-04-16 | XMS | Encounter Summary ---
Demographics + + + | Address | [address] | | | [place] [address] | + + + | Home Phone | | + + + | Preferred Language | Unknown | + + + | Marital Status | | + + + | Faith Affiliation | 1027 | + + + | Race | Unknown | + + + | Ethnic Group | Unknown | + + + Author + + + | Author | [facility] | | | and [place] | + + + | Organization | [facility] | | | and [place] | + + + | Address | Unknown | + + + | Phone | Unavailable | + + + Support + + + + + | Name | Relationship | Address | Phone | + + + + + | Libby Soraino | ECON | [address] | | | | | [place] | | | | | [address] | | + + + + + Care Team Providers + +------+ + | Care Waiter/Waitress Tavern Name | Role | Phone | + +------+ + | Rajiv Wise MD | PCP | | + +------+ + Encounter Details +--------+ + + + + | Date | Type | Department | Care Team | Description | +--------+ + + + + | 03/02/ | Orders Only | [facility] | Pavel Veras MD | | | 2019 | | NEPHROLOGY [place] | [address] [place] | | | | | [address] [place] | [address] [place], [place] | | | | | [address] [place], [place] | [address] | | | | | [address] | | | | | | [phone] | | | +--------+ + + + [...] 2018 | Visit | | [address] [facility] | | | | | | [address] [place] | | | | | | [address] | | | | | | | | +--------+---------+ + + + | 04/27/ | Office | Cardiology | Sher Max, | | | 2019 | Visit | | [address] | | | | | | [place], | | | | | | [place] [address] | | | | | | [phone] | | | | | | | | +--------+---------+ + + + documented as of this encounter Visit Diagnoses Not on filedocumented in this encounter"
--- OUTSIDE RECORDS SUMMARY | ~2019-04-16 | XMS | Encounter Summary ---
Demographics + + + | Address | [address] | | | [place] [address] | + + + | Home Phone | | + + + | Preferred Language | Unknown | + + + | Marital Status | | + + + | Islam Affiliation | 1027 | + + + | Race | Unknown | + + + | Ethnic Group | Unknown | + + + Author + + + | Author | [employer] (Historical as of | | | 02-27-19) | + + + | Organization | [facility] [employer] (Historical as of | | | 02-27-19) | + + + | Address | Unknown | + + + | Phone | Unavailable | + + + Support + + + + + | Name | Relationship | Address | Phone | + + + + + | Libby Soriano | ECON | [address] | | | | | [place] | | | | | [address] | | + + + + + Care Team Providers + +------+ + | Care Microfilm Operator Name | Role | Phone | [...] [address] | | | | | [address] | | | | | | [place] [address] | | | | | | [phone] | | | +--------+ + + + [...] | | | | | | [address] [place], [place] | | | | | | [address] | | | | | | | [...]
--- OUTSIDE RECORDS SUMMARY | ~2019-04-16 | XMS | Encounter Summary ---
Demographics + + + | Address | [address] | | | [place] [address] | + + + | Home Phone | | + + + | Preferred Language | Unknown | + + + | Marital Status | | + + + | Orthodox Affiliation | 1027 | + + + | Race | Unknown | + + + | Ethnic Group | Unknown | + + + Author + + + | Author | [facility] (Historical as of | | | 02-27-19) | + + + | Organization | [facility] (Historical as of | | | 02-27-19) | + + + | Address | Unknown | + + + | Phone | Unavailable | + + + Support + + + + + | Name | Relationship | Address | Phone | + + + + + | Libby Soriano | ECON | [address] | | | | | [place] | | | | | [address] | | + + + + + Care Team Providers + +------+ + | Care Local Government Legislator Name | Role | Phone | + [...] | | | | | [place] [address] | | | | | | [phone] | | | +--------+ + + + [...] | | | | | | [address] [place], [place] | | | | | | [address] | | | | | | | [...]
--- OUTSIDE RECORDS SUMMARY | ~2019-04-16 | XMS | Encounter Summary ---
Demographics + + + | Address | [address] | | | [place] [address] | + + + | Home Phone | | + + + | Preferred Language | Unknown | + + + | Marital Status | | + + + | Orthodox Affiliation | 1027 | + + + | Race | Unknown | + + + | Ethnic Group | Unknown | + + + Author + + + | Author | [employer] (Historical as of | | | 02-27-19) | + + + | Organization | [facility] [employer] (Historical as of | | | 02-27-19) | + + + | Address | Unknown | + + + | Phone | Unavailable | + + + Support + + + + + | Name | Relationship | Address | Phone | + + + + + | Libby Soriano | ECON | [address] | + | | | | [place] | | | | | [address] | | + + + + + Care Team Providers + +------+ + | Care Inter Com Servicer Name | Role | Phone | [...] 3 chronic kidney | | | | [place] [address] | | disease (HCC); | | | | [phone] | | Electrolyte | | | | [...] | | | | | | [address] [facility] | | | | | | [address] | | | | | | | [...] | | | | | 4 (severe) ([facility]) | | + +--------+ + + + [...] | + + + + + | [facility] | [address] | [place] [address] | [phone] | | LABORATORY | Blvd. | | [...] | + + + + + | [facility] | [address] | [place] [address] | [phone] | | LABORATORY | Blvd. | | [...] | + + + + + | [facility] | [address] | [place] [address] | [phone] | | LABORATORY | Blvd. | | [...] + + + | [facility] | [address] | [place] [address] | [phone] | | LABORATORY | Blvd. | | [...]
--- OUTSIDE RECORDS SUMMARY | ~2019-04-16 | XMS | Encounter Summary ---
Demographics + + + | Address | [address] | | | [place] [address] | + + + | Home Phone | | + + + | Preferred Language | Unknown | + + + | Marital Status | | + + + | Amish Affiliation | 1027 | + + + | Race | Unknown | + + + | Ethnic Group | Unknown | + + + Author + + + | Author | [facility] | | | and [place] | + + + | Organization | [facility] | | | and [place] | + + + | Address | Unknown | + + + | Phone | Unavailable | + + + Support + + + + + | Name | Relationship | Address | Phone | + + + + + | Libby Soriano | ECON | [address] | | | | | [place] | | | | | [address] | | + + + + + Care Team Providers + +------+ + | Care Water And Fire Technician Name | Role | Phone | + +------+ + | Rajiv Wise MD | PCP | | + +------+ + Encounter Details +--------+ + + + + | Date | Type | Department | Care Team | Description | +--------+ + + + + | 02/01/ | Orders Only | [facility] | Pavel Veras MD | | | 2019 | | NEPRHOLOGY [place] | [address] [place] | | | | | [address] | [address] [place], [place] | | | | | 101 [place], [place] | [address] | | | | | [address] | | | | | | [phone] | | | +--------+ + + + [...] 2018 | Visit | | [address] [facility] | | | | | | [address] [place] | | | | | | [address] | | | | | | | | +--------+---------+ + + + | 04/27/ | Office | Cardiology | Sher Max, | | | 2018 | Visit | | [address] | | | | | | [place], | | | | | | [place] [address] | | | | | | [phone] | | | | | | | | +--------+---------+ + + + documented as of this encounter Visit Diagnoses Not on filedocumented in this encounter"
--- OUTSIDE RECORDS SUMMARY | ~2019-04-16 | XMS | Encounter Summary ---
Demographics + + + | Address | [address] | | | [place] [address] | + + + | Home Phone | | + + + | Preferred Language | Unknown | + + + | Marital Status | | + + + | Taoism Affiliation | 1027 | + + + | Race | Unknown | + + + | Ethnic Group | Unknown | + + + Author + + + | Author | [facility] | | | and [place] | + + + | Organization | [facility] | | | and [place] | + + + | Address | Unknown | + + + | Phone | Unavailable | + + + Support + + + + + | Name | Relationship | Address | Phone | + + + + + | Libby Soriano | ECON | [address] | | | | | [place] | | | | | [address] | | + + + + + Care Team Providers + +------+ + | Care Engineering Leader Name | Role | Phone | + +------+ + | Rajiv Wise MD | PCP | | + +------+ + Encounter Details +--------+ + + + + | Date | Type | Department | Care Team | Description | +--------+ + + + + | 03/03/ | Orders Only | [facility] | Pavel Veras MD | Stage 3 chronic | | 2019 | | NEPHROLOGY [place] | [address] [place] | kidney disease (HCC) | | | | [address] [place] | [address] [place], [place] | (Primary Dx); | | | | [address] [place], [place] | [address] | Anemia of chronic | | | | [address] | | disease | | | | [phone] | | | +--------+ + + + [...] 2018 | Visit | | [address] [facility] | | | | | | [address] [place] | | | | | | [address] | | | | | | | | +--------+---------+ + + + | 04/27/ | Office | Cardiology | Sher Max, | | | 2018 | Visit | | [address] | | | | | | [place] [facility] | | | | | | [place] [address] | | | | | | [phone] | | | | | | | [...]
--- OUTSIDE RECORDS SUMMARY | ~2019-04-16 | XMS | Encounter Summary ---
Demographics + + + | Address | [address] | | | [place] [address] | + + + | Home Phone | | + + + | Preferred Language | Unknown | + + + | Marital Status | | + + + | Amish Affiliation | 1027 | + + + | Race | Unknown | + + + | Ethnic Group | Unknown | + + + Author + + + | Author | [employer] (Historical as of | | | 02-27-19) | + + + | Organization | [facility] [employer] (Historical as of | | | 02-27-19) | + + + | Address | Unknown | + + + | Phone | Unavailable | + + + Support + + + + + | Name | Relationship | Address | Phone | + + + + + | Libby Soriano | ECON | [address] | | | | | [place], [place] | | | | | [address] | | + + + + + Care Team Providers + +------+ + | Care Administrative Aide Name | Role | Phone | + [...] | | | | | [place] [address] | | | | | | [phone] | | | +--------+ + + + [...] | | | | | | [address] [place], [place] | | | | | | [address] | | | | | | | | +--------+---------+ + + + as of this encounter Visit Diagnoses Not on filein this encounter"
--- OUTSIDE RECORDS SUMMARY | ~2019-04-16 | XMS | Encounter Summary ---
Demographics + + + | Address | [address] | | | [place] [address] | + + + | Home Phone | | + + + | Preferred Language | Unknown | + + + | Marital Status | | + + + | Sikh Affiliation | 1027 | + + + | Race | Unknown | + + + | Ethnic Group | Unknown | + + + Author + + + | Author | [employer] (Historical as of | | | 02-27-19) | + + + | Organization | [facility] [employer] (Historical as of | | | 02-27-19) | + + + | Address | Unknown | + + + | Phone | Unavailable | + + + Support + + + + + | Name | Relationship | Address | Phone | + + + + + | Libby Soriano | ECON | [address] | + | | | | [place] | | | | | [address] | | + + + + + Care Team Providers + +------+ + | Care Supervisor Malted Milk Name | Role | Phone | + [...] | | | | | [place] [address] | | | | | | [phone] | | | +--------+ + + + [...] [place] | | | | | | [id number] | | | | | | | | +--------+---------+ + + + as of this encounter Visit Diagnoses Not on filein this encounter"
--- OUTSIDE RECORDS SUMMARY | ~2019-04-16 | XMS | Encounter Summary ---
Demographics + + + | Address | [address] | | | [place] [address] | + + + | Home Phone | | + + + | Preferred Language | Unknown | + + + | Marital Status | | + + + | Adventist Affiliation | 1027 | + + + | Race | Unknown | + + + | Ethnic Group | Unknown | + + + Author + + + | Author | [facility] | | | and [place] | + + + | Organization | [facility] | | | and [place] | + + + | Address | Unknown | + + + | Phone | Unavailable | + + + Support + + + + + | Name | Relationship | Address | Phone | + + + + + | Libby Soriano | ECON | [address] | | | | | [place] | | | | | [address] | | + + + + + Care Team Providers + +------+ + | Care Hide Puller Name | Role | Phone | + +------+ + | Rajiv Wise MD | PCP | | + +------+ + Encounter Details +--------+ + + + + | Date | Type | Department | Care Team | Description | +--------+ + + + + | 02/22/ | Orders Only | [facility] | Sher Max, | | | 2019 | | CARDIOLOGY [place] | [address] | | | | | [address] | [place], | | | | | [place], [place] | [place] [address] | | | | | [address] | [phone] | | | | | [phone] | | | +--------+ + + + [...] 2018 | Visit | | [address] [facility] | | | | | | 160 [place], [place] | | | | | | [address] | | | | | | | | +--------+---------+ + + + | 04/27/ | Office | Cardiology | Sher Max, | | | 2018 | Visit | | [address] | | | | | | [place], | | | | | | [place] [address] | | | | | | [phone] | | | | | | | | +--------+---------+ + + + documented as of this encounter Visit Diagnoses Not on filedocumented in this encounter"
--- OUTSIDE RECORDS SUMMARY | ~2019-04-16 | XMS | Encounter Summary ---
Demographics + + + | Address | [address] | | | [place] [address] | + + + | Home Phone | | + + + | Preferred Language | Unknown | + + + | Marital Status | | + + + | Roman Catholic Affiliation | 1027 | + + + | Race | Unknown | + + + | Ethnic Group | Unknown | + + + Author + + + | Author | [employer] (Historical as of | | | 02-27-19) | + + + | Organization | [facility] (Historical as of | | | 02-27-19) | + + + | Address | Unknown | + + + | Phone | Unavailable | + + + Support + + + + + | Name | Relationship | Address | Phone | + + + + + | Libby Soriano | ECON | [address] | + | | | | [place] | | | | | [address] | | + + + + + Care Team Providers + +------+ + | Care House Rn Name | Role | Phone | + [...] | | [address] | [address] [place], [place] | chronic kidney | | | | [place] [address] | [address] | disease (HCC) | | | | [phone] | | (Primary Dx); Anemia | | [...] or concerns. Truly yours, Pavel Veras MD [facility] Cc: Barbara Quiroz DANTE Wolf in this encounter Plan of Treatment +--------+---------+ + + + | Date | Type | Specialty | Care Team | Description | +--------+---------+ + + + | 04/19/ | Office | Nephrology | Pavel Veras MD | | | 2019 | Visit | | [address] | | | | | | [address] [place], [place] | | | | | | [...]
--- OUTSIDE RECORDS SUMMARY | ~2019-04-16 | XMS | Clinical Summary ---
Demographics + + + | Address | [address] | | | [place] [address] | + + + | Home Phone | | + + + | Preferred Language | Unknown | + + + | Marital Status | | + + + | Rastafarian Affiliation | 1027 | + + + | Race | Unknown | + + + | Ethnic Group | Unknown | + + + Author + + + | Author | [email or web address] (Historical as of | | | 02-27-19) | + + + | Organization | [facility] [email or web address] (Historical as of | | | 02-27-19) | + + + | Address | Unknown | + + + | Phone | Unavailable | + + + Support + + + + + | Name | Relationship | Address | Phone | + + + + + | Libby Soriano | ECON | [address] | + | | | | [place] | | | | | [address] | | + + + + + Care Team Providers + +------+ + | Care Finish Opener Name | Role | Phone | + [...] | | | | | | [address] [place], [place] | | | | | | [address] | | | | | | | [...] + + + | [facility] | [address] | [place] [address] | [phone] | | LABORATORY | Blvd. | | [...] + + + | [facility] | [address] | [place] [address] | [phone] | | LABORATORY | Blvd. | | [...] + + + | [facility] | [address] | [place] [address] | [phone] | | LABORATORY | Blvd. | | [...] + + + | [facility] | [address] | [place] [address] | [phone] | | LABORATORY | Blvd. | | [...] +------+-------+ + | MEDICARE | MEDICA | [id number] | | | [address] | | | RE | | | | [place] [address] | | | IP-OP | | | | | + +--------+ +------+-------+ + | [employer]ARE | UNITED | [id number] | | | | | | | [...] | Self [birth year] | Home: | [address] | | MARISSA gillespie/Amadeo | | 1945 | [phone] [place] | | | marin | | | 2019 | [address] | + +--------+ +--------+ + +
--- OUTSIDE RECORDS SUMMARY | ~2019-04-16 | XMS | Encounter Summary ---
Demographics + + + | Address | [address] | | | [place] [address] | + + + | Home Phone | | + + + | Preferred Language | Unknown | + + + | Marital Status | | + + + | Buddhist Affiliation | 1027 | + + + | Race | Unknown | + + + | Ethnic Group | Unknown | + + + Author + + + | Author | [employer] (Historical as of | | | 02-27-19) | + + + | Organization | [facility] (Historical as of | | | 02-27-19) | + + + | Address | Unknown | + + + | Phone | Unavailable | + + + Support + + + + + | Name | Relationship | Address | Phone | + + + + + | Libby Soriano | ECON | [address] | + | | | | [place] | | | | | [address] | | + + + + + Care Team Providers + +------+ + | Care Retail Store Clerk Name | Role | Phone | [...] 3 chronic kidney | | | | [place] [address] | | disease (HCC); | | | | [phone] | | Electrolyte | | | | [...] | | | | | | [address] [facility] | | | | | | [address] | | | | | | | [...] | | | 4 (severe) ([facility]) | | + +--------+ + + + [...] | + + + + + | [facility] | [address] | [place] [address] | [phone] | | LABORATORY | Blvd. | | [...] | + + + + + | [facility] | [address] | [place] [address] | [phone] | | LABORATORY | Blvd. | | [...] | + + + + + | [facility] | [address] | [place] [address] | [phone] | | LABORATORY | Blvd. | | [...] + + + | [facility] | [address] | [place] [address] | [phone] | | LABORATORY | Blvd. | | [...]
--- OUTSIDE RECORDS SUMMARY | ~2019-04-16 | XMS | Encounter Summary ---
Demographics + + + | Address | [address] | | | [place] [address] | + + + | Home Phone | | + + + | Preferred Language | Unknown | + + + | Marital Status | | + + + | Adventist Affiliation | 1027 | + + + | Race | Unknown | + + + | Ethnic Group | Unknown | + + + Author + + + | Author | [facility] | | | and [place] | + + + | Organization | [facility] | | | and [place] | + + + | Address | Unknown | + + + | Phone | Unavailable | + + + Support + + + + + | Name | Relationship | Address | Phone | + + + + + | Libby Soriano | ECON | [address] | | | | | [place], [place] | | | | | [address] | | + + + + + Care Team Providers + +------+ + | Care Brine Purifier Name | Role | Phone | + [...] [place] | | | | | | [address] | (Fax) | | | | | [phone] | | | +--------+ + + + [...] | | | | | | [facility] | | | | | | [address] | | | | | | | | +--------+---------+ + + + | 04/27/ | Office | Cardiology | Sher Max, | | | 2018 | Visit | | [address] | | | | | | [place] [facility] | | | | | | [place] [address] | | | | | | [phone] | | | | | | | [...]
--- OUTSIDE RECORDS SUMMARY | ~2019-04-16 | XMS | Encounter Summary ---
Demographics + + + | Address | [address] | | | [place] [address] | + + + | Home Phone | | + + + | Preferred Language | Unknown | + + + | Marital Status | | + + + | Catholic Affiliation | 1027 | + + + | Race | Unknown | + + + | Ethnic Group | Unknown | + + + Author + + + | Author | [employer] (Historical as of | | | 02-27-19) | + + + | Organization | [facility] [employer] (Historical as of | | | 02-27-19) | + + + | Address | Unknown | + + + | Phone | Unavailable | + + + Support + + + + + | Name | Relationship | Address | Phone | + + + + + | Libby Soriano | ECON | [address] | + | | | | [place] | | | | | [address] | | + + + + + Care Team Providers + +------+ + | Care Employment Security Officer Name | Role | Phone | + +------+ + | Rajiv Wise MD | PCP | | + +------+ + Encounter Details +--------+ + + + + | Date | Type | Department | Care Team | Description | +--------+ + + + + | 02/01/ | Telephone | [facility] | Fidencio, | | | 2019 | | [place] [address] | | | | | [address] | | | | | | [place] [address] | | | | | | [phone] | | | +--------+ + + + [...] | | | | | | [address] [place], [place] | | | | | | [address] | | | | | | | [...] | | | e | kidney disease ([facility]) | 03/01/2019, Expires: | | | | | 02/02/2020 | + +--------+ + + | CBC W/Auto Diff (Reflex to | Routin | Stage 3 chronic | Expected: | | Manual) | e | kidney disease ([facility]) | 03/01/2019, Expires: | | | | | 02/02/2020 | + +--------+ + + | Renal function panel | Routin | Stage 3 chronic | Expected: | | | e | kidney disease ([facility]) | 04/04/2019, Expires: | | | | Anemia of chronic | 02/02/2020 | | | | disease | | + +--------+ + + | Magnesium | Routin | Stage 3 chronic | Expected: | | | e | kidney disease ([facility]) | 04/04/2019, Expires: | | | | Anemia of chronic | 02/02/2020 | | | | disease | | + +--------+ + + | CBC W/Auto Diff (Reflex to | Routin | Stage 3 chronic | Expected: | | Manual) | e | kidney disease ([facility]) | 04/04/2019, Expires: | | | | Anemia of chronic | 02/02/2020 | | | | disease | | + +--------+ + + | Iron Panel W/UIBC | Routin | Stage 3 chronic | Expected: | | | e | kidney disease ([facility]) | 04/04/2019, Expires: | | | | Anemia of chronic | 02/02/2020 | | | | disease | | + +--------+ + + | Ferritin | Routin | Stage 3 chronic | Expected: | | | e | kidney disease ([facility]) | 04/04/2019, Expires: | | | | Anemia of chronic | 02/02/2020 | | | | disease | | + +--------+ + + | Uric acid | Routin | Stage 3 chronic | Expected: | | | e | kidney disease ([facility]) | 04/04/2019, Expires: | | | [...]
--- OUTSIDE RECORDS SUMMARY | ~2019-04-16 | XMS | Encounter Summary ---
Demographics + + + | Address | [address] | | | [place] [address] | + + + | Home Phone | | + + + | Preferred Language | Unknown | + + + | Marital Status | | + + + | Yazdanism Affiliation | 1027 | + + + | Race | Unknown | + + + | Ethnic Group | Unknown | + + + Author + + + | Author | [facility] | | | and [place] | + + + | Organization | [facility] | | | and [place] | + + + | Address | Unknown | + + + | Phone | Unavailable | + + + Support + + + + + | Name | Relationship | Address | Phone | + + + + + | Libby Soriano | ECON | [address] | | | | | [place], [place] | | | | | [address] | | + + + + + Care Team Providers + +------+ + | Care Special Procedures Technologist Name | Role | Phone | + +------+ + PCP | Unavailable | + +------+ + Encounter Details +--------+ + + + + | Date | Type | Department | Care Team | Description | +--------+ + + + + | 01/28/ | Orders Only | [facility] | Pavel Veras MD | | | 2019 | | NEPHROLOGY [place] | [address] [place] | | | | | [address] [place] | [address] [place], [place] | | | | | [address] [place], [place] | [address] | | | | | [address] | | | | | | [phone] | | | +--------+ + + + [...] 2018 | Visit | | [address] [facility] | | | | | | [address] [place], [place] | | | | | | [address] | | | | | | | | +--------+---------+ + + + | 04/27/ | Office | Cardiology | Sher Max, | | | 2018 | Visit | | [address] | | | | | | [place], | | | | | | [place] [address] | | | | | | [phone] | | | | | | | [...] | | | LAB | | | [place]IN[place] | | | | | + + [...]
--- OUTSIDE RECORDS SUMMARY | ~2019-04-16 | XMS | Encounter Summary ---
Demographics + + + | Address | [address] | | | [place] [address] | + + + | Home Phone | | + + + | Preferred Language | Unknown | + + + | Marital Status | | + + + | Moravian Affiliation | 1027 | + + + | Race | Unknown | + + + | Ethnic Group | Unknown | + + + Author + + + | Author | [employer] (Historical as of | | | 02-27-19) | + + + | Organization | [facility] (Historical as of | | | 02-27-19) | + + + | Address | Unknown | + + + | Phone | Unavailable | + + + Support + + + + + | Name | Relationship | Address | Phone | + + + + + | Libby Soriano | ECON | [address] | + | | | | [place] | | | | | [address] | | + + + + + Care Team Providers + +------+ + | Care Laundry Attendant Name | Role | Phone | + +------+ + | Rajiv Wise MD | PCP | | + +------+ + Encounter Details +--------+ + + + + | Date | Type | Department | Care Team | Description | +--------+ + + + + | 02/01/ | Telephone | [facility] | Fdiencio, | | | 2019 | | [place] [address] | | | | | [address] | | | | | | [place] [address] | | | | | | [phone] | | | +--------+ + + + [...] | | | | | | [address] [place], [place] | | | | | | [address] | | | | | | | [...] | | | e | kidney disease ([facility]) | 03/01/2019, Expires: | | | | | 02/02/2020 | + +--------+ + + | CBC W/Auto Diff (Reflex to | Routin | Stage 3 chronic | Expected: | | Manual) | e | kidney disease ([facility]) | 03/01/2019, Expires: | | | | | 02/02/2020 | + +--------+ + + | Renal function panel | Routin | Stage 3 chronic | Expected: | | | e | kidney disease ([facility]) | 04/04/2019, Expires: | | | | Anemia of chronic | 02/02/2020 | | | | disease | | + +--------+ + + | Magnesium | Routin | Stage 3 chronic | Expected: | | | e | kidney disease ([facility]) | 04/04/2019, Expires: | | | | Anemia of chronic | 02/02/2020 | | | | disease | | + +--------+ + + | CBC W/Auto Diff (Reflex to | Routin | Stage 3 chronic | Expected: | | Manual) | e | kidney disease ([facility]) | 04/04/2019, Expires: | | | | Anemia of chronic | 02/02/2020 | | | | disease | | + +--------+ + + | Iron Panel W/UIBC | Routin | Stage 3 chronic | Expected: | | | e | kidney disease ([facility]) | 04/04/2019, Expires: | | | | Anemia of chronic | 02/02/2020 | | | | disease | | + +--------+ + + | Ferritin | Routin | Stage 3 chronic | Expected: | | | e | kidney disease ([facility]) | 04/04/2019, Expires: | | | | Anemia of chronic | 02/02/2020 | | | | disease | | + +--------+ + + | Uric acid | Routin | Stage 3 chronic | Expected: | | | e | kidney disease ([facility]) | 04/04/2019, Expires: | | | | [...]
--- OUTSIDE RECORDS SUMMARY | ~2019-04-16 | XMS | Encounter Summary ---
Demographics + + + | Address | [address] | | | [place] [address] | + + + | Home Phone | | + + + | Preferred Language | Unknown | + + + | Marital Status | | + + + | Gnosticism Affiliation | 1027 | + + + | Race | Unknown | + + + | Ethnic Group | Unknown | + + + Author + + + | Author | [facility] | | | and [place] | + + + | Organization | [facility] | | | and [place] | + + + | Address | Unknown | + + + | Phone | Unavailable | + + + Support + + + + + | Name | Relationship | Address | Phone | + + + + + | Libby Soriano | ECON | [address] | | | | | [place] | | | | | [address] | | + + + + + Care Team Providers + +------+ + | Care English Composition Instructor Name | Role | Phone | + +------+ + | Rajiv Wise MD | PCP | | + +------+ + Encounter Details +--------+ + + + + | Date | Type | Department | Care Team | Description | +--------+ + + + + | 03/03/ | Orders Only | [facility] | Pavel Veras MD | Stage 3 chronic | | 2019 | | NEPHROLOGY [place] | [address] [place] | kidney disease (HCC) | | | | [address] [place] | [address] [place], [place] | (Primary Dx); | | | | [address] [place], [place] | [address] | Anemia of chronic | | | | [address] | | disease | | | | [phone] | | | +--------+ + + + [...] [place] | | | | | | [address] | | | | | | | | +--------+---------+ + + + | 04/27/ | Office | Cardiology | Sher Max, | | | 2018 | Visit | | MD [address] | | | | | | [place] [facility] [place] | | | | | | [place] [address] | | | | | | [phone] | | | | | | | [...]
[~2019-04-16 11:00] MED LIST changes: +AMOXICILLIN500 MG PO; +BYSTOLIC5 MG PO
--- OUTSIDE RECORDS SUMMARY | 2019-04-16 11:02 | XMS ---
PreManage Notification: DIMA GUIDO Security Oral Therapist Events No recent Security Events currently on file CRITERIA MET - [facility] - Has Care Guidelines - [facility] - 2 Visits in 30 Days CARE PROVIDERS OSCAR JACOBSON Internal Medicine: Cardiovascular 11/23/2018-Current Disease PHONE: Unknown BILL, [facility] 11/23/2018-Current CEE Tactilize PHONE: [phone] Jihan has no Care Guidelines for this patient. Care History Medical/Surgical 12/03/2018 [facility] - PATIENT VELASQUEZ HAS PCP DR KHAN. - PATIENT RECREATION PROGRAM SPECIALIST IS DR PATEL IN [place]. - PATIENT HAS A CASINO MANAGER DR RUTLEDGE. NEXT APT WILL BE WITH DR SAVAGE ON 08/01 [facility] VISIT COUNT ([address] [facility] [place] TOTAL 3 NOTE: Visits indicate total known visits. ED/UCC VISIT TRACKING (12 MO.) 04/16/2019 11:00 [facility] [place] TYPE: Emergency COMPLAINT: - NOSE BLEED 04/13/2019 04:12 [facility] [place] TYPE: Emergency COMPLAINT: - NOSE BLEED DIAGNOSES: - buttermaker (current) use of aspirin - Other equipment operator intermodal yard (current) drug therapy - Allergy status to other drugs, medicaments and biological substances status - Type 2 diabetes mellitus without complications - Essential (primary) hypertension - Epistaxis 11/15/2018 21:20 [facility] [place] TYPE: Emergency COMPLAINT: - HYPONATERMIA INPATIENT VISIT TRACKING (12 MO.) 11/16/2018 00:04 [facility] [place] TYPE: Medical Surgical COMPLAINT: - DECOMPENSATED HEART FAILURE/ HYPONATERMIA DIAGNOSES: - Hyperkalemia - group home (current) use of oral hypoglycemic drugs - Chronic kidney disease, unspecified - Hyperkalemia - Pulmonary hypertension, unspecified - group home (current) use of antithrombotics/antiplatelets - Allergy status to other drugs, medicaments and biological substances status - Gastro-esophageal reflux disease without esophagitis - Hypertensive heart and chronic kidney disease with heart failure and stage 1 through stage 4 chronic kidney disease, or unspecified chronic kidney disease - Other residential (current) drug therapy - Obstructive sleep apnea (adult) (pediatric) - Other equipment operator intermodal yard (current) drug therapy - group home (current) use of oral hypoglycemic drugs - Hypo-osmolality and hyponatremia - Allergy status to other drugs, medicaments and biological substances status - Type 2 diabetes mellitus with diabetic chronic kidney disease - Acute kidney failure, unspecified - Other specified abnormalities of plasma proteins - group home (current) use of antithrombotics/antiplatelets - buttermaker (current) use of aspirin - Anemia in [...] kidney disease - Chronic atrial fibrillation - buttermaker (current) use of aspirin - Presence of [...] 36.0-36.9, adult - Acute kidney failure, unspecified [email or web address]
== END 2019-04-16 15:10 | disposition home or self-care (01) ==
LOC: ED 11:00
PROC: 093K7ZZ Control Bleeding in Nasal Mucosa and Soft Tissue, Via Natural or Artificial Opening (ICD-10-PCS; principal; 2019-04-16)
DX: R04.0 Epistaxis (principal); E11.9 Type 2 diabetes mellitus without complications; I48.91 Unspecified atrial fibrillation; I10 Essential (primary) hypertension; K21.9 Gastro-esophageal reflux disease without esophagitis; Z88.8 Allergy status to other drugs, medicaments and biological substances; Z79.899 Other long term (current) drug therapy; Z79.82 Long term (current) use of aspirin
CPT/HCPCS: 30903; 99283-25

== ENCOUNTER 2020-10-30 16:20 | Emergency (ER) | payer MEDICARE ==
[~2020-10-30] VITALS: Ht 160 cm; Wt 88.5 kg
--- NOTE | 2020-10-31 00:31 | EKG ---
[facility] [address] [facility] [place] [address] Signed Atrial fibrillation Right superior axis deviation Nonspecific intraventricular block Abnormal ECG When compared with ECG of 15-NOV-2018 21:32, Questionable change in QRS axis Borderline criteria for Lateral infarct are no longer present Nonspecific T wave abnormality now evident in Anterior leads Confirmed by ACRA FONSECA MD ([id number]) on 10/31/2020 12:30:52 AM Electronically Signed By: CARA FONSECA MD 10/31/20 0031 PATIENT NAME: LATADIMA ROSE Electrocardiogram DATE OF : 43 PHYSICIAN: CARA FONSECA MD REPORT #: [id number] REPORT IS CONFIDENTIAL AND NOT TO BE RELEASED WITHOUT AUTHORIZATION
== END 2020-10-30 20:12 | disposition short-term general hospital (02) ==
LOC: ED 16:20
DX: I21.4 Non-ST elevation (NSTEMI) myocardial infarction (principal); N17.9 Acute kidney failure, unspecified; I11.0 Hypertensive heart disease with heart failure; I50.9 Heart failure, unspecified; I48.91 Unspecified atrial fibrillation; E11.9 Type 2 diabetes mellitus without complications; K21.9 Gastro-esophageal reflux disease without esophagitis; Z87.891 Personal history of nicotine dependence; Z88.8 Allergy status to other drugs, medicaments and biological substances; Z79.899 Other long term (current) drug therapy; Z79.82 Long term (current) use of aspirin; Z20.822 Contact with and (suspected) exposure to COVID-19
CPT/HCPCS: 51702; 71045; 80053; 81001; 82140; 83735; 83880; 84484; 85025; 93005; 93010; 99285-25; C9803; J1940; J7030; U0003

== ENCOUNTER 2020-11-09 15:37 | Emergency (ER) | payer MEDICARE ==
[~2020-11-09] VITALS: Ht 160 cm; Wt 85.7 kg
--- OUTSIDE RECORDS SUMMARY | 2020-11-09 15:44 | XMS ---
PreManage Notification: DIMA GUIDO Security Manager Unit Events No recent Security Events currently on file CRITERIA MET - [facility] - 2 Visits in 30 Days CARE PROVIDERS OSCAR JACOBSON Internal Medicine: Cardiovascular 11/23/2018-Current Disease [facility]: [phone] [facility]Current CEE Rios PHONE: [phone] YVAN TYLER MD Otolaryngology 04/19/2019-Current PHONE: Unknown Jihan has no Care Guidelines for this patient. Care History Medical/Surgical 12/03/2018 [facility] - PATIENT VELASQUEZ HAS PCP DR KHAN. - PATIENT URGENT CARE NURSE PRACTITIONER IS DR PATEL IN [place]. - PATIENT HAS A TAX SERVICES INTERN DR RUTLEDGE. NEXT APT WILL BE WITH DR SAVAGE ON 08/01 [place] VISIT COUNT (12 MO.) 2 LISA Mayer TOTAL 2 NOTE: Visits indicate total known visits. ED/UCC VISIT TRACKING (12 MO.) 11/09/2020 15:39 [facility] [place] TYPE: Emergency COMPLAINT: - WEAKNESS, DIARRHEA 10/30/2020 16:21 [facility] [place] [place] TYPE: Emergency COMPLAINT: - WEAKNESS DIAGNOSES: - Weakness - Unspecified atrial fibrillation - Other termite control service representative (current) drug therapy - Heart failure, unspecified - Personal history of nicotine dependence - penitentiary (current) use of aspirin - Hypertensive heart disease with heart failure - Allergy status to other drugs, medicaments and biological substances - Acute kidney failure, unspecified - Type 2 diabetes mellitus without complications - Gastro-esophageal reflux disease without esophagitis - Non-ST elevation (NSTEMI) myocardial infarction INPATIENT VISIT TRACKING (12 MO.) 10/30/2020 21:[address] [facility] TYPE: Medical Surgical DIAGNOSES: - NSTEMI, CHF - Heart failure, unspecified - Nonrheumatic aortic (valve) stenosis - Acute on chronic right heart failure - Chronic obstructive pulmonary disease, unspecified - Chronic diastolic (congestive) heart failure - Anemia in other chronic diseases classified elsewhere - Pulmonary hypertension, unspecified [email or web address]
[2020-11-09] MEDS ORDERED: NYSTATIN1 EAC2 MISC (16:13)
[2020-11-09] MEDS ORDERED: ALLOPURINOL100 MG PO (16:13)
--- NOTE | 2020-11-10 17:14 | EKG ---
[facility] [address] [facility] [place] [address] Signed Likely Sinus rhythm Left bundle branch block Abnormal ECG When compared with ECG of 30-OCT-2020 18:25, Current undetermined rhythm precludes rhythm comparison, needs review Nonspecific T wave abnormality no longer evident in Anterior leads Confirmed by WENDY WOLF MD ([id number]) on 11/10/2020 5:14:15 PM Electronically Signed By: WENDY WOLF MD 11/10/20 1714 PATIENT NAME: LATADIMA Electrocardiogram DATE OF : 43 PHYSICIAN: WENDY WOLF MD REPORT #: [id number] REPORT IS CONFIDENTIAL AND NOT TO BE RELEASED WITHOUT AUTHORIZATION
== END 2020-11-09 20:30 | disposition home or self-care (01) ==
LOC: ED 15:37
DX: I13.0 Hypertensive heart and chronic kidney disease with heart failure and stage 1 through stage 4 chronic kidney disease, or unspecified chronic kidney disease (principal); I50.9 Heart failure, unspecified; N18.9 Chronic kidney disease, unspecified; E11.22 Type 2 diabetes mellitus with diabetic chronic kidney disease; K21.9 Gastro-esophageal reflux disease without esophagitis; Z87.891 Personal history of nicotine dependence; Z88.8 Allergy status to other drugs, medicaments and biological substances; Z79.899 Other long term (current) drug therapy; Z79.82 Long term (current) use of aspirin
CPT/HCPCS: 71045; 74176; 80053; 81001; 83605; 83690; 85025; 93005; 93010; 96374; 96375; 99284-25; J1940; J2405; J7040; P9047

== ENCOUNTER 2020-11-22 14:41 | Emergency (ER) | payer MEDICARE ==
[~2020-11-22] VITALS: Ht 160 cm; Wt 85.7 kg
[~2020-11-22 14:41] MED LIST changes: +ALLOPURINOL100 MG PO; +NYSTATIN1 EAC2 MISC
--- OUTSIDE RECORDS SUMMARY | 2020-11-22 14:42 | XMS ---
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 [place] VISIT COUNT (12 MO.) 3 LISA Mayer TOTAL 3 NOTE: Visits indicate total known visits. 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 - Hypertensive heart and chronic kidney disease with heart failure and stage 1 through stage 4 chronic kidney disease, or unspecified chronic kidney disease - Gastro-esophageal reflux disease without esophagitis - Heart failure, unspecified - Allergy status to other drugs, medicaments and biological substances - Type 2 diabetes mellitus with diabetic chronic kidney disease - Personal history of nicotine dependence - Other alf (current) drug therapy - Chronic kidney disease, unspecified 10/30/2020 16:21 [facility] [place] TYPE: Emergency COMPLAINT: - WEAKNESS DIAGNOSES: - Weakness - Unspecified atrial fibrillation - Other alf (current) drug therapy - Heart failure, unspecified - Personal history of nicotine dependence - snf (current) use of aspirin - Hypertensive heart disease with heart failure - Allergy status to other drugs, medicaments and biological substances - Acute kidney failure, unspecified - Type 2 diabetes mellitus without complications - Gastro-esophageal reflux disease without esophagitis - Non-ST elevation (NSTEMI) myocardial infarction INPATIENT VISIT TRACKING (12 MO.) [facility]30[facility]2020 [facility] DIAGNOSES: - NSTEMI, CHF - Heart failure, unspecified - Nonrheumatic aortic (valve) stenosis - Acute on chronic right heart failure - Chronic obstructive pulmonary disease, unspecified - Chronic diastolic (congestive) heart failure - Anemia in other chronic diseases classified elsewhere - Pulmonary hypertension, unspecified [email or web address]
--- NOTE | 2020-11-22 17:27 | EKG ---
[facility] [address] [facility] [place] [address] Signed Atrial fibrillation with rapid ventricular response Right superior axis deviation Nonspecific intraventricular block Abnormal ECG When compared with ECG of 09-NOV-2020 16:08, Previous ECG has undetermined rhythm, needs review Confirmed by SARAH DAVILA DO ([id number]) on 11/22/2020 5:27:32 PM Electronically Signed By: SARAH DAVILA DO 11/22/20 1727 PATIENT NAME: DIMA GUIDO Electrocardiogram DATE OF : 43 PHYSICIAN: SARAH DAVILA DO REPORT #: [id number] REPORT IS CONFIDENTIAL AND NOT TO BE RELEASED WITHOUT AUTHORIZATION
== END 2020-11-22 20:52 | disposition short-term general hospital (02) ==
LOC: ED 14:41
PROC: 0T9B70Z Drainage of Bladder with Drainage Device, Via Natural or Artificial Opening (ICD-10-PCS; principal; 2020-11-22)
DX: A41.9 Sepsis, unspecified organism (principal); R65.21 Severe sepsis with septic shock; I48.91 Unspecified atrial fibrillation; E11.9 Type 2 diabetes mellitus without complications; I10 Essential (primary) hypertension; Z20.822 Contact with and (suspected) exposure to COVID-19; K21.9 Gastro-esophageal reflux disease without esophagitis; Z88.8 Allergy status to other drugs, medicaments and biological substances; Z79.899 Other long term (current) drug therapy; Z79.82 Long term (current) use of aspirin
CPT/HCPCS: 51702; 71045; 80053; 81001; 83605; 83735; 84484; 85025; 87040; 87077; 87186; 93005; 93010; 99285-25; C9803; J0692; J7030; U0003